=== PATIENT | female | born 1935 | race Caucasian/White ===

== ENCOUNTER 2017-06-18 17:44 | Emergency (ER) | payer MEDICARE, OTHER, SELFPAY ==
[2017-06-18 17:45] VITALS: BP 181/78; PULSE 86; RESP 18; TEMP 36.8; O2SAT 95; BMI 36.3
--- NOTE | 2017-06-18 18:27 | EKG12_ITS ---
Test Reason : PALPITATIONS Blood Pressure : / mmHG Vent. Rate : 087 BPM Atrial Rate : 087 BPM P-R Int : 172 ms QRS Dur : 078 ms QT Int : 384 ms P-R-T Axes : 059 003 059 degrees QTc Int : 462 ms Normal sinus rhythm Nonspecific ST and T wave abnormality Abnormal ECG Confirmed by VAN MARTINEZ, JOSE ([id number]), editor in chief newspaper ARMAND MALDONADO ([id number]) on 06/20/2017 2:23:10 PM Referred By: Confirmed By:JOSE ARAUJO MD
--- NOTE | 2017-06-18 18:33 | ED.DCSUM_ITS ---
- ER Visit Summary Date of Service: 06/18/17 Chief Complaint: Elevated blood pressure History of Present Illness: The patient is a 82 F presenting from urgent care with elevated blood pressure. Patient states that she has felt generalized weakness and fatigue. She also complains of anxiety. She states she has guests coming this weekend and she has had excessive worrying. She complains of depression with no suicidal ideation. States her blood pressure medicines were changed a few months ago by Dr. Casas. She has since switched to Dr. Webster. She states that the urgent care was unsure if she was in A. fib. She has a history of paroxysmal A. fib. Denies chest pain or shortness of breath. Denies headache. Physical Examination: Blood pressure 181/78. Patient is afebrile. Alert no acute distress. HEENT exam is unremarkable. Neck is supple. Lungs are clear and equal bilaterally. Heart is regular rate and rhythm. Abdomen is soft nontender nondistended. Extremities are unremarkable. Skin is warm and dry. No focal neurologic deficit. Remainder of exam is unremarkable. Emergency Department Course and Treatment: EKG is sinus rhythm rate of 87. Chest x-ray shows no acute process. CBC, chemistries unremarkable. INR is 2.1. Troponin is negative. Urinalysis positive for 5-10 white cells, positive leukocytes. Urine culture was sent. TSH is 3.52. She was given Keflex and a prescription for Keflex. Her blood pressure is 141/88 on reevaluation. She is feeling improved. She is advised to follow-up with her primary care physician for blood pressure recheck. She is advised to return to ED if she has worsening complaints. Disposition: Discharge home Impression: UTI, anxiety This note was generated with [employer] dictation software. It may contain incorrect words, spelling, and punctuation that were not noted in review of the chart prior to signing ED Disposition - Plan for ED Patient: Chief Complaint: Hypertension Referrals: Rafael Casas MD [NON-STAFF] -
--- NOTE | 2017-06-18 18:35 | RAD_ITS ---
STUDY: X-RAY CHEST REASON FOR EXAM: Female, 82 years old. Hypertension. TECHNIQUE: Single AP portable upright view of the chest. COMPARISON: PA and lateral chest x-ray May 05, 2016. FINDINGS: The lungs are clear, although not as deeply expanded today. There is no demonstrated pleural abnormality. Normal size heart. Normal mediastinum and augusto. Normal visualized pulmonary arteries. There is stable atherosclerotic calcification of the aortic arch. There are stable multilevel degenerative changes of the visualized thoracic spine. Prior fixation of a proximal right humeral fracture with a lateral metal sideplate and screws again noted. 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 There is no demonstrated abnormality of the visualized soft tissue structures of the upper abdomen. RAD/Chest 1 View (Portable) IMPRESSION: No acute cardiopulmonary disease. Electronically Signed: Moose Michaels MD at 18:56 EST , Service support ,
[2017-06-18 18:45] VITALS: O2SAT 96
[2017-06-18 18:45] LABS: Absolute Lymphocyte Count 1.49 X10^3/ul (0.83-4.51); Absolute Neutrophil Count 6.6 X10^3/uL (2.0-7.7); Basophil# 0.01 X10^3/uL; Basophil% 0.1 % (0-1); Eosinophil# 0.34 X10^3/uL; Eosinophils% 3.7 % (0-5); Hematocrit 39.2 % (37-47); Hemoglobin 12.3 g/dl (12.0-15.0); Lymphocyte # 1.49 X10^3/ul (4.0); Lymphocyte % 16.3 % (19-41); Mean Corp Hgb Conc 31.4 g/gl (32-36); Mean Corpuscular Volume 89.3 fL (81-99); Mean Platelet Vol. 9.7 fl (6.2-12.0); Monocyte# 0.66 X10^3/uL; Monocyte% 7.2 % (0-10); Neutrophil # 6.63 X10^3/uL (2.7-7.7); Neutrophil % 72.5 % (47-70); Platelet Count 203 K/mm3 (150-450); RBC Distribution Width CV 14.3 % (11.6-14.6); RBC Distribution Width SD 46.7 fl (35.1-43.9); Red Blood Count 4.39 M/mm3 (4.2-5.4); White Blood Count 9.2 K/mm3 (4.4-11.0)
[2017-06-18 18:47] LABS: POSITIVE COUNT NO; POSITIVE DIFFERENTIAL NO; POSITIVE MORPHOLOGY NO
[2017-06-18 18:51] VITALS: BP 154/83; PULSE 85; RESP 18; O2SAT 96
[2017-06-18 18:54] LABS: International Normalized Ratio 2.1; Prothrombin Time (Protime)PT. 22.4 SECONDS (11.7-14.9)
[2017-06-18 19:12] LABS: Anion Gap 7 (5-15); BUN 17 mg/dL (7-18); BUN/Creat Ratio 18.5 RATIO (10-20); Chloride 106 mmol/L (98-107); Creatinine, Serum 0.92 mg/dL (0.55-1.02); EST Glomerular Filtration Rate 62 mL/min (>60); Est Glom Filt Rate - Afr Amer 75 mL/min (>60); Estimated Creatinine Clearance 43.15 ml/min; Glucose 107 mg/dL (74-106); Potassium 4.1 mmol/L (3.5-5.1); Sodium Level 141 mmol/L (136-145); Thyroid Stim Hormone (TSH) 3.52 uIU/mL (0.358-3.74)
[2017-06-18 20:05] LABS: Bacteria 0 SEEN /hpf (None Seen); Mucous, Urine 0 SEEN /hpf (<or=2+)
[2017-06-18 20:14] LABS: Color, Urine Yellow (Yellow); Glucose, Dipstick Normal (Normal); Ketone-Dipstick Negative (Negative); Leukocyte Esterase-Dipstick 100 /ul (Negative); Nitrite-Dipstick Negative (Negative); Occult Blood-Urine 10 /ul (Negative); Protein-Dipstick 15 mg/dl (Negative); Specific Gravity, Urine 1.025 (1.002-1.030); Urine Bilirubin Dipstick Negative (Negative); Urine Clarity Sl. Cloudy (Clear); Urine Urobilinogen Normal (Normal)
[2017-06-18 20:35] LABS: Red Blood Cells-Urine 0-5 SEEN /hpf (0-5); Squamous Epithelial Cells - UA 0-5 SEEN /hpf (5-10); White Blood Cells 5-10 SEEN /hpf (0-5)
[2017-06-18 20:51] VITALS: BP 160/72; PULSE 89; RESP 18; O2SAT 96
--- NOTE | 2017-06-18 21:34 | ED.DEP ---
ED Disposition - Plan for ED Patient: Chief Complaint: Hypertension Instructions: ED HTN Established, ED UTI Cystitis Female Prescriptions: Cephalexin [Keflex] 500 mg PO Q6 #40 capsule Referrals: Rafael Casas MD [NON-STAFF] - Pasha Webster MD [Primary Care Provider] -
[2017-06-18 21:46] VITALS: BP 144/82; PULSE 100; RESP 18; O2SAT 99
== END 2017-06-18 21:49 | disposition home or self-care (01) ==
LOC: ED 18:56
PROVIDERS: Emergency Provider Emergency Medicine; Family Provider Family Medicine; PCP Family Medicine
DX: N39.0 Urinary tract infection, site not specified (principal); F41.9 Anxiety disorder, unspecified; I10 Essential (primary) hypertension; I48.0 Paroxysmal atrial fibrillation; J45.909 Unspecified asthma, uncomplicated; R19.7 Diarrhea, unspecified; F32.9 Major depressive disorder, single episode, unspecified; Z79.01 Long term (current) use of anticoagulants; Z79.899 Other long term (current) drug therapy
CPT/HCPCS: 71045; 80048; 81001; 84443; 84484; 85025; 85610; 87086; 87088; 93005; 99284; A4216

== ENCOUNTER 2017-12-20 16:01 | Emergency (ER) | payer MEDICARE, OTHER, SELFPAY ==
[2017-12-20 16:02] VITALS: BP 167/75; PULSE 70; RESP 18; TEMP 37.1; O2SAT 92; BMI 36.1
--- NOTE | 2017-12-20 16:17 | ED.VISSUMM ---
- ER Visit Summary Date of Service: 12/20/17 Chief Complaint: Weakness History of Present Illness: The patient is a 82 F with generalized weakness and feeling tired today. She states she has a nervous feeling in her stomach. She is currently on her second round of antibiotics for right leg wound. She has been having diarrhea. No fever or chills. Past history significant for paroxysmal A. fib. She is on Tikosyn and Coumadin for this. Physical Examination: Blood pressure is 167/75, temp 98.7, heart rate 70, respiratory rate 18, pulse ox 92% on room air. Patient sitting upright in bed. She is in no acute distress and speaking full sentences. Heart is regular rate and rhythm. Lung sounds are clear. Abdomen is soft with no tenderness on exam. Active bowel sounds are noted throughout. Extremity examination significant for right lower leg which has 2 wounds of the anterior right lincoln. One measures 3 cm round and the other measures 1 x 2 cm. Edges are clean with good granulation tissue. Test Results: Initial EKG reveals sinus rhythm that switched into a junctional rhythm. Heart rate was 58. There is no sign of acute ST change. Repeat EKG approximately 45 minutes later revealed sinus rhythm at 62. CBC was normal white count. Hemoglobin is 11.7. Chemistry studies unremarkable. INR is 1.9. UA is normal. Troponin negative. Emergency Department Course and Treatment: Patient received gentle IV fluids here. On repeat evaluation heart rate is in the 80s. She still describes feeling a nervous feeling in her stomach, but denies pain. I did discuss her case with Dr. Chapito Daley, her frame assembler. Patient is to stay on her current medications and call the office on Friday for follow-up. Treatment Plan: [] Disposition: Discharge Impression: Generalized malaise This note was generated with [employer] dictation software. It may contain incorrect words, spelling, and punctuation that were not noted in review of the chart prior to signing ED Disposition - Plan for ED Patient: Chief Complaint: Weakness Referrals: Pasha Webster MD [Primary Care Provider] -
--- NOTE | 2017-12-20 16:20 | RAD_ITS ---
STUDY: X-RAY CHEST REASON FOR EXAM: Female, 82 years old. Atrial fibrillation, hypertension, asthma TECHNIQUE: Single frontal view COMPARISON: June 18, 2017 FINDINGS: The lungs are clear and expanded. There is no demonstrated pleural abnormality. Borderline size heart. Normal mediastinum and augusto. Normal visualized pulmonary arteries. Calcified aortic arch and descending thoracic aorta. Mild degenerative changes of the thoracic spine. Status post ORIF of the right humerus. There is no demonstrated abnormality of the visualized soft tissue structures of the upper abdomen. RAD/Chest 1 View (Portable) IMPRESSION: Oral and cardiac shadow. Electronically Signed: Timoteo Montemayor DO at 16:48 EDT Tel [phone], Service support ,
[2017-12-20] MEDS: 0.9% Normal Saline 1,000 ML 150 ML IV (16:39)
[2017-12-20 16:40] LABS: Absolute Lymphocyte Count 1.59 X10^3/ul (0.83-4.51); Absolute Neutrophil Count 6.7 X10^3/uL (2.0-7.7); Basophil# 0.03 X10^3/uL; Basophil% 0.3 % (0-1); Eosinophils% 8.1 % (0-5); Hematocrit 37.2 % (37-47); Hemoglobin 11.7 g/dl (12.0-15.0); Lymphocyte # 1.59 X10^3/ul (4.0); Lymphocyte % 16.1 % (19-41); Mean Corp Hgb Conc 31.5 g/gl (32-36); Mean Corpuscular Hgb 27.6 pg (27.0-32.0); Mean Corpuscular Volume 87.7 fL (81-99); Mean Platelet Vol. 9.5 fl (6.2-12.0); Monocyte% 8.1 % (0-10); Neutrophil # 6.67 X10^3/uL (2.7-7.7); Neutrophil % 67.3 % (47-70); POSITIVE COUNT NO; POSITIVE DIFFERENTIAL NO; POSITIVE MORPHOLOGY NO; Platelet Count 217 K/mm3 (150-450); RBC Distribution Width CV 15.1 % (11.6-14.6); Red Blood Count 4.24 M/mm3 (4.2-5.4); White Blood Count 9.9 K/mm3 (4.4-11.0)
[2017-12-20 16:46] LABS: Bacteria 0 SEEN /hpf (None Seen); Mucous, Urine 0 SEEN /hpf (<or=2+)
[2017-12-20 16:58] LABS: Color, Urine Yellow (Yellow); Glucose, Dipstick Normal (Normal); Ketone-Dipstick Negative (Negative); Leukocyte Esterase-Dipstick 25 /ul (Negative); Nitrite-Dipstick Negative (Negative); Occult Blood-Urine 10 /ul (Negative); Protein-Dipstick 15 mg/dl (Negative); Specific Gravity, Urine 1.015 (1.002-1.030); Urine Bilirubin Dipstick Negative (Negative); Urine Clarity Sl. Cloudy (Clear); Urine Urobilinogen Normal (Normal)
[2017-12-20 17:04] LABS: International Normalized Ratio 1.9; Prothrombin Time (Protime)PT. 22.2 SECONDS (11.7-14.9)
[2017-12-20 17:07] LABS: Squamous Epithelial Cells - UA 0-5 SEEN /hpf (5-10)
[2017-12-20 17:09] LABS: White Blood Cells 0-5 SEEN /hpf (0-5)
[2017-12-20 17:10] LABS: Red Blood Cells-Urine 0-5 SEEN /hpf (0-5)
[2017-12-20 17:18] LABS: Anion Gap 6 (5-15); BUN 20 mg/dL (7-18); BUN/Creat Ratio 17.9 RATIO (10-20); Chloride 104 mmol/L (98-107); Creatinine, Serum 1.12 mg/dL (0.55-1.02); EST Glomerular Filtration Rate 50 mL/min (>60); Est Glom Filt Rate - Afr Amer 60 mL/min (>60); Estimated Creatinine Clearance 35.45 ml/min; Glucose 115 mg/dL (74-106); Potassium 4.5 mmol/L (3.5-5.1); Sodium Level 139 mmol/L (136-145)
--- NOTE | 2017-12-20 18:09 | ED.DEP ---
ED Disposition - Plan for ED Patient: Disposition: Home or Assisted Living Chief Complaint: Weakness Instructions: ED Weakness [facility] Referrals: Chapito Daley MD [STAFF PHYSICIAN] - 3-5 Days
[2017-12-20 18:22] VITALS: BP 158/67; PULSE 75; RESP 15; O2SAT 96
== END 2017-12-20 18:23 | disposition home or self-care (01) ==
PROVIDERS: Emergency Provider Emergency Medicine; Family Provider Family Medicine; PCP Family Medicine
DX: R53.81 Other malaise (principal); R19.7 Diarrhea, unspecified; I48.0 Paroxysmal atrial fibrillation; I10 Essential (primary) hypertension; J45.909 Unspecified asthma, uncomplicated; S81.801A Unspecified open wound, right lower leg, initial encounter; X58.XXXA Exposure to other specified factors, initial encounter; Y93.9 Activity, unspecified; Y92.9 Unspecified place or not applicable; Y99.9 Unspecified external cause status; Z79.899 Other long term (current) drug therapy; Z79.01 Long term (current) use of anticoagulants
CPT/HCPCS: 71045; 80048; 81001; 84484; 85025; 85610; 93005; 96360; 96361; 99285; J7030; A4216

== ENCOUNTER 2018-01-02 14:00 | Outpatient (RCR) | payer MEDICARE, OTHER, SELFPAY ==
[2017-12-12 13:51] VITALS: BP 168/73; PULSE 71; RESP 18; TEMP 35.5; BMI 36.1
--- NOTE | 2017-12-12 17:31 | PCM.WC.HP ---
(1) Traumatic open wound of right lower leg with delayed healing Status: Chronic Current Visit: Yes Code(s): S81.801D - Unspecified open wound, right lower leg, subsequent encounter (2) Cellulitis and abscess of right leg Status: Chronic Current Visit: Yes Code(s): L03.115 - Cellulitis of right lower limb; L02.415 - Cutaneous abscess of right lower limb (3) Paroxysmal a-fib Status: Chronic Current Visit: Yes Code(s): I48.0 - Paroxysmal atrial fibrillation Comment: Anticoagulated with Coumadin Antiarrhythmic therapy with dofetilide (4) Obesity Status: Chronic Current Visit: Yes Qualifiers: Obesity type: due to excess calories Code(s): E66.9 - Obesity, unspecified (5) Benign essential HTN Status: Chronic Current Visit: Yes Code(s): I10 - Essential (primary) hypertension History of Present Illness Date of Service: 12/12/17 Chief Complaint: Nonhealing wounds right lower leg History of Wound: Susanna is a very pleasant 82 yo female who has been referred to the wound center for treatment of nonhealing wounds to her right lower leg by Dr. Webster. Susanna reports that she struck her right leg on the running board of a truck while she was trying to get into the truck on November 27, 2017. She has been using gauze to dress the wounds. She notes that a few days after the injury she had increased swelling and erythema of her right leg and increased pain. She saw her PCP who started her on Keflex and recommended that she be seen here. She is on chronic anticoagulation with coumadin for A. Fib and her INR was therapeutic at the time of her injury. She has not had any vascular testing and no cultures were obtained. She does not typically have significant edema in her lower legs. 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) Cellulitis and abscess of right leg (Chronic) Paroxysmal a-fib (Chronic) Anticoagulated with Coumadin Antiarrhythmic therapy with dofetilide Obesity (Chronic) Depression (Chronic) Benign essential HTN (Chronic) Asthma (Chronic) Mild intermittent Surgical History: - - Cholecystectomy Allergies/Adverse Reactions: Allergies aspirin Allergy (Verified 06/18/17 17:48) Unknown NSAIDS (Non-Steroidal Anti-Inflamma Allergy (Verified 06/18/17 17:48) Unknown Home Medications: Ambulatory Orders Medication Instructions Recorded Dofetilide [Tikosyn] 375 mcg PO Q12 04/22/14 Atorvastatin Calcium [Lipitor] 20 mg PO QHS 09/11/14 Albuterol Inhaler [Ventolin Hfa] 1 - 2 puff INHALATION Q4H PRN PRN 09/16/14 #1 inhaler Fluticasone/Salmeterol [Advair 1 puff INHALATION BID #1 inhaler 09/16/14 250/50 Mcg Diskus] Sertraline HCl [Zoloft] 100 mg PO DAILY 03/10/16 Warfarin [Coumadin ([facility])] 4 mg PO QODAY 04/15/16 Warfarin Sodium [Warfarin Sodium] 3 mg PO QODAY 05/05/16 Albuterol Aerosols [Ventolin 2.5 mg INHALATION Q4HWA.RT PRN 06/18/17 Aerosols] Cephalexin [Keflex] 500 mg PO Q6 #40 capsule 06/18/17 - Family History Maternal No pertinent history Lives: Spouse/ Significant Other Smoking Status: Never smoker Tobacco Use: Non-smoker Alcohol: None Drugs: None Review of Systems Constitutional: Denies: Chills, Fever, Weight Change Eyes: Denies: Pain, Vision Change HEENT: Denies: Difficulty Hearing, Difficulty Swallowing, Sinus Congestion Cardiovascular: Denies: Chest Pain, Palpitations Respiratory: Denies: Cough, Shortness of Breath Gastrointestinal: Denies: Diarrhea, Nausea, Vomiting Genitourinary: Denies: Dysuria, Hematuria Skin: Reports: Wounds Endocrine: Denies: Heat/ Cold Intolerance, Polydipsia, Polyuria Hematologic/ Lymphatic: Reports: Easy Bruising, Easy Bleeding - Physical Exam Vital Signs Temp Pulse Resp BP 95.9 F L 71 18 168/73 H 12/12/17 13:51 12/12/17 13:51 12/12/17 13:51 12/12/17 13:51 General: Alert, Oriented x3, Cooperative, No apparent distress HEENT: Atraumatic, Normocephalic Oral: Moist Mucosa Lungs: Clear to auscultation Cardiovascular: Regular rate, Regular Rhythm Abdomen: Soft, Non Tender, Obese Extremities: Diminished Peripheral Pulses, Edema Skin: Ulcer/ Wound Wound Measurements and Assessment WC - Nurse 1 - General Ulcer Measurement Start: 12/12/17 13:36 Freq: Status: Active Protocol: Activity Type Activity Date Activity User E-Sign Co-Sign Detail Recorded Client Recorded Date Recorded By Document 12/12/17 13:51 [id number] 12/12/17 14:27 12/12/17 13:51 Wound Center Nurse 1 [Ulcer Assessment] #2 RIGHT INFERIOR LIN[place] -Combined with other wound No -Current Size (cm) - Length 2.1 -Current Size (cm) - Width 1.2 -Current Size (cm) - Depth 0.1 -Total Square Cm 2.52 -Date of Last Picture (Recall this 12/12/17 field) -Photo Taken Yes -Epithelialization None Present -Tunneling No -Undermining/Tunneling No -Circular Undermining No -Exudate Amt Small (1-33%) -Exudate Type Serosanguineous -Wound Margin Thickened -Granulation Amt None Present (0 %) -Slough/Fibrin Yes -Necrosis Amt Medium (34-66%) -Necrotic Tissue Type Adherent Slough -Structure Exposed None/Limited to Skin Breakdown -Texture (Evelyne-wound Skin Appearance) No Abnormality Assessed -Moisture (Evelyne-wound Skin Appearance No Abnormality ) Assessed -Color (Evelyne-wound Skin Appearance) Erythema -Temperature (Evelyne-wound Skin No Abnormality Appearance) (Pt Warm) -Tenderness on Palpation (Evelyne-wound Yes Skin Appearance) -Ulcer Cleansing Rinsed/ Irrigated with Saline -Foul Odor after Cleansing No -Anesthetic Used 4% Lidocaine Solution #1 RIGHT SUPERIOR LINCOLN CLUSTER -Combined with other wound No -Current Size (cm) - Length 3.2 -Current Size (cm) - Width 6.7 -Current Size (cm) - Depth 0.1 -Total Square Cm 21.44 -Date of Last Picture (Recall this 12/12/17 field) -Photo Taken Yes -Epithelialization None Present -Tunneling No -Undermining/Tunneling No -Circular Undermining No -Exudate Amt Small (1-33%) -Exudate Type Serosanguineous -Wound Margin Thickened -Granulation Amt None Present (0 %) -Necrosis Amt Medium (34-66%) -Necrotic Tissue Type Adherent Slough -Structure Exposed None/Limited to Skin Breakdown -Texture (Evelyne-wound Skin Appearance) No Abnormality Assessed -Moisture (Evelyne-wound Skin Appearance No Abnormality ) Assessed -Color (Evelyne-wound Skin Appearance) Erythema -Temperature (Evelyne-wound Skin Hot Appearance) -Tenderness on Palpation (Evelyne-wound Yes Skin Appearance) -Ulcer Cleansing Rinsed/ Irrigated with Saline -Foul Odor after Cleansing No -Anesthetic Used 4% Lidocaine Solution [Edema Assessment] -Lower Limb Edema Present Yes -Right Calf (cm) 33.3 -Right Ankle (cm) 25.3 -Left Calf (cm) 34.6 -Left Ankle (cm) 22.0 DEIDRE - Nurse 2 - General Ulcer CM Notes Start: 12/12/17 13:36 Freq: Status: Active Protocol: Activity Type Activity Date Activity User E-Sign Co-Sign Detail Recorded Client Recorded Date Recorded By Document 12/12/17 15:48 [id number] 12/12/17 16:00 12/12/17 15:48 Wound Center Nurse 2 [Procedure/Treatment] #2 RIGHT INFERIOR LINCOLN -Time 15:49 -Correct Patient Yes -Correct Side, Site, Position Yes -Correct Procedure Yes -Procedure Performed Yes -Type of Procedure Debridement -Clinical Debridement Subcutaneous -Post Debridement Size (cm) - Length 1.9 -Post Debridement Size (cm) - Width 1.0 -Post Debridement Size (cm) - Depth 0.1 -Total Square Cm 1.90 -Wound/Ulcer Outcome Not Healed -Ulcer Cleansing Rinsed/ Irrigated with Saline -Foul Odor after Cleansing No -Bioengineered Tissue No -Topical Lidocaine (%) 5 -Bleeding Controlled with Pressure -Treatment Response Procedure Tolerated Well #1 RIGHT SUPERIOR LIN[place]N CLUSTER -Time 15:49 -Correct Patient Yes -Correct Side, Site, Position Yes -Correct Procedure Yes -Procedure Performed Yes -Type of Procedure Debridement -Clinical Debridement Subcutaneous -Post Debridement Size (cm) - Length 3.5 -Post Debridement Size (cm) - Width 6.5 -Post Debridement Size (cm) - Depth 0.1 -Total Square Cm 22.75 -Wound/Ulcer Outcome Not Healed -Ulcer Cleansing Rinsed/ Irrigated with Saline -Foul Odor after Cleansing No -Bioengineered Tissue No -Topical Lidocaine (%) 5 -Bleeding Controlled with Pressure -Treatment Response Procedure Tolerated Well [See Physician Procedure note for Specifics] Pain Scale: 0-10 Numeric [Pain] -Is Patient Pain Free? Yes Psych/Mental Status: Normal Affect, Appropriate Debridement Note Post-Debridement Measurements/Treatment DEIDRE - Nurse 2 - General Ulcer CM Notes Start: 12/12/17 13:36 Freq: Status: Active Protocol: Activity Type Activity Date Activity User E-Sign Co-Sign Detail Recorded Client Recorded Date Recorded By Document 12/12/17 15:48 [id number] 12/12/17 16:00 12/12/17 15:48 Wound Center Nurse 2 #2 RIGHT INFERIOR LINCOLN -Time 15:49 -Correct Patient Yes -Correct Side, Site, Position Yes -Correct Procedure Yes -Procedure Performed Yes -Type of Procedure Debridement -Clinical Debridement Subcutaneous -Post Debridement Size (cm) - Length 1.9 -Post Debridement Size (cm) - Width 1.0 -Post Debridement Size (cm) - Depth 0.1 -Total Square Cm 1.90 -Wound/Ulcer Outcome Not Healed -Ulcer Cleansing Rinsed/ Irrigated with Saline -Foul Odor after Cleansing No -Bioengineered Tissue No -Topical Lidocaine (%) 5 -Bleeding Controlled with Pressure -Treatment Response Procedure Tolerated Well #1 RIGHT SUPERIOR LINCOLN CLUSTER -Time 15:49 -Correct Patient Yes -Correct Side, Site, Position Yes -Correct Procedure Yes -Procedure Performed Yes -Type of Procedure Debridement -Clinical Debridement Subcutaneous -Post Debridement Size (cm) - Length 3.5 -Post Debridement Size (cm) - Width 6.5 -Post Debridement Size (cm) - Depth 0.1 -Total Square Cm 22.75 -Wound/Ulcer Outcome Not Healed -Ulcer Cleansing Rinsed/ Irrigated with Saline -Foul Odor after Cleansing No -Bioengineered Tissue No -Topical Lidocaine (%) 5 -Bleeding Controlled with Pressure -Treatment Response Procedure Tolerated Well Pain Scale: 0-10 Numeric Is Patient Pain Free? Yes Wound debrided: right inferior lincoln Laterality: Right Type of Debridement: Excisional debridement Anesthesia Used: 4% Lidocaine Solution, 5% Lidocaine Gel Depth: Down to and including healthy tissue, in the subcutaneous layer Percentage of wound debrided: 100 Instrument Used: #15 blade, Forceps Tissue Removed: yellow slough, devitalized tissue Severity: Fat Layer Exposed Amount of bleeding with debridement: Mild Bleeding Controlled with: Compression and gauze Patient tolerated procedure well - Additional Wound Wound debrided: right superior lincoln cluster Laterality: Right Type of Debridement: Excisional debridement Anesthesia Used: 4% Lidocaine Solution, 5% Lidocaine Gel Depth: Down to and including healthy tissue, in the subcutaneous layer Percentage of wound debrided: 100 Instrument Used: #15 blade, Forceps Tissue Removed: yellow slough, devitalized tissue Severity: Fat Layer Exposed Amount of bleeding with debridement: Mild Bleeding Controlled with: Compression and gauze Patient tolerated procedure: Patient tolerated procedure well Assessment/Plan Active Problems 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 Wound cultures were taken. She will continue Keflex until completed and will adjust antibiotics based on culture results. Venous studies were ordered. I do not feel arterial studies are necessary at this time. Will order if there is impaired healing. Will treat her edema with tubigrip compression in a single layer. Will dress her wounds with Silvercell. Encouraged increased protein intake and elevation of her legs when sitting. F/U in 1 week.
--- NOTE | 2017-12-19 10:30 | VDLE_ITS ---
Reason For Study: PAIN, EDEMA RIGHT LEFT CFV is compressible, spontaneous, phasic, CFV is compressible, spontaneous, phasic, competent and demonstrates normal competent, and demonstrates normal augmentation. augmentation. FV is compressible, spontaneous, phasic, FV is compressible, spontaneous, phasic, competent and demonstrates normal competent and demonstrates normal augmentation. augmentation. POP V is compressible, spontaneous, phasic, POP V is compressible, spontaneous, phasic, competent and demonstrates normal competent and demonstrates normal augmentation. augmentation. T/P Trunk is compressible. T/P Trunk is compressible. PTV is compressible. PTV is compressible. RT PerV is compressible. LT PerV is compressible. RT GSV is compressible. Left GSV at SFJ is compressible and RT GSV at SFJ is INCOMPETENT for greater competent. than .5 seconds. Left GSV is competent throughout. The remainder of the GSV is competent. Left SSV is competent. RT SSV is compressible and competent. GSV and SSV noe are thickened. GSV and SSV noe are thickened. Procedure Exam performed in department. A preliminary report was called and/or faxed to [facility]. Interpretation Summary Deep veins of the lower extremities are bilaterally patent and compressible segmentally. There is no evidence of deep vein thrombosis on either side. Valvular competence appears intact within the proximal deep venous systems bilaterally. The greater saphenous veins appear bilaterally patent and compressible segmentally. The right sapheno-femoral junction is incompetent . The left sapheno- femoral junction is competent . Valvular competence appears to be intact segmentally within the greater saphenous veins bilaterally. Small saphenous veins are patent and competent bilaterally. The greater saphenous veins and small saphenous veins demonstrate chronic vein wall thickening bilaterally. Ordering Physician: Amna Ignacio Referring Physician: KATHY BEARD Performed By: Zena Blue, LUCRECIA, RVT
[2017-12-19 13:11] VITALS: BP 136/61; PULSE 69; RESP 18; TEMP 36.9; BMI 36.1
--- NOTE | 2017-12-19 17:00 | PN.PCM_ITS ---
(1) Traumatic open wound of right lower leg with delayed healing Status: Chronic Current Visit: Yes Code(s): S81.801D - Unspecified open wound, right lower leg, subsequent encounter (2) Cellulitis and abscess of right leg Status: Chronic Current Visit: Yes Code(s): L03.115 - Cellulitis of right lower limb; L02.415 - Cutaneous abscess of right lower limb (3) Paroxysmal a-fib Status: Chronic Current Visit: Yes Code(s): I48.0 - Paroxysmal atrial fibrillation Comment: Anticoagulated with Coumadin Antiarrhythmic therapy with dofetilide (4) Obesity Status: Chronic Current Visit: Yes Qualifiers: Obesity type: due to excess calories Code(s): E66.9 - Obesity, unspecified (5) Benign essential HTN Status: Chronic Current Visit: Yes Code(s): I10 - Essential (primary) hypertension Type of Wound Date of Service: 12/19/17 Chief Complaint: Nonhealing wounds right lower leg History of Wound: Susanna is a very pleasant 82 yo female who has been referred to the wound center for treatment of nonhealing wounds to her right lower leg by Dr. Webster. Susanna reports that she struck her right leg on the running board of a truck while she was trying to get into the truck on November 27, 2017. She has been using gauze to dress the wounds. She notes that a few days after the injury she had increased swelling and erythema of her right leg and increased pain. She saw her PCP who started her on Keflex and recommended that she be seen here. She is on chronic anticoagulation with coumadin for A. Fib and her INR was therapeutic at the time of her injury. She has not had any vascular testing and no cultures were obtained. She does not typically have significant edema in her lower legs. Progress of Wound: Susanna presents for follow up of nonhealing traumatic wounds to her right lower leg. She tolerated dressings with Aquacel but was unable to tolerate compression because it hurt her legs too much. She still feels quite a bit of pain in her wounds. She started on clindamycin for positive wound cultures and is tolerating the medication fairly well with just an off taste in her mouth. - Physical Exam Vital Signs Temp Pulse Resp BP 98.4 F 69 18 136/61 H 12/19/17 13:11 12/19/17 13:11 12/19/17 13:11 12/19/17 13:11 General: Alert, Oriented x3, Cooperative, No apparent distress HEENT: Atraumatic, Normocephalic Oral: Moist Mucosa Abdomen: Obese Extremities: Edema Skin: Ulcer/ Wound Wound Measurements and Assessment WC - Nurse 1 - General Ulcer Measurement Start: 12/12/17 13:36 Freq: Status: Active Protocol: Activity Type Activity Date Activity User E-Sign Co-Sign Detail Recorded Client Recorded Date Recorded By Document 12/19/17 13:11 [id number] 12/19/17 13:15 12/19/17 13:11 Wound Center Nurse 1 [Ulcer Assessment] #2 RIGHT INFERIOR LINCOLN -Combined with other wound No -Current Size (cm) - Length 1.7 -Current Size (cm) - Width 0.9 -Current Size (cm) - Depth 0.1 -Total Square Cm 1.53 -Photo Taken No -Epithelialization None Present -Tunneling No -Undermining/Tunneling No -Circular Undermining No -Exudate Amt Medium (34-66%) -Exudate Type Serosanguineous -Wound Margin Distinct, Outline Attached -Granulation Amt Medium (34-66%) -Granulation Quality [place] Red -Slough/Fibrin Yes -Necrosis Amt None Present (0 %) -Necrotic Tissue Type Adherent Slough -Structure Exposed None/Limited to Skin Breakdown -Texture (Evelyne-wound Skin Appearance) No Abnormality Assessed -Moisture (Evelyne-wound Skin Appearance No Abnormality ) Assessed -Color (Evelyne-wound Skin Appearance) No Abnormality Assessed -Temperature (Evelyne-wound Skin No Abnormality Appearance) (Pt Warm) -Tenderness on Palpation (Evelyne-wound Yes Skin Appearance) -Ulcer Cleansing Rinsed/ Irrigated with Saline -Foul Odor after Cleansing No -Anesthetic Used 5% Lidocaine Gel #1 RIGHT SUPERIOR LINCOLN CLUSTER -Combined with other wound No -Current Size (cm) - Length 2.7 -Current Size (cm) - Width 1.9 -Current Size (cm) - Depth 0.1 -Total Square Cm 5.13 -Photo Taken No -Epithelialization None Present -Tunneling No -Undermining/Tunneling No -Circular Undermining No -Exudate Amt Medium (34-66%) -Exudate Type Serosanguineous -Wound Margin Distinct, Outline Attached -Granulation Amt Medium (34-66%) -Granulation Quality [place] Red -Slough/Fibrin Yes -Necrosis Amt None Present (0 %) -Necrotic Tissue Type Adherent Slough -Structure Exposed None/Limited to Skin Breakdown -Texture (Evelyne-wound Skin Appearance) No Abnormality Assessed -Color (Evelyne-wound Skin Appearance) No Abnormality Assessed -Temperature (Evelyne-wound Skin No Abnormality Appearance) (Pt Warm) -Tenderness on Palpation (Evelyne-wound Yes Skin Appearance) -Ulcer Cleansing Rinsed/ Irrigated with Saline -Foul Odor after Cleansing No -Anesthetic Used 4% Lidocaine Solution [Edema Assessment] -Lower Limb Edema Present No -Left Calf (cm) 34.2 -Left Ankle (cm) 23.5 WC - Nurse 2 - General Ulcer CM Notes Start: 12/12/17 13:36 Freq: Status: Active Protocol: Activity Type Activity Date Activity User E-Sign Co-Sign Detail Recorded Client Recorded Date Recorded By Document 12/19/17 13:37 [id number] 12/19/17 13:48 12/19/17 13:37 Wound Center Nurse 2 [Procedure/Treatment] #2 RIGHT INFERIOR LINCOLN -Time 13:46 -Correct Patient Yes -Correct Side, Site, Position Yes -Correct Procedure Yes -Procedure Performed Yes -Type of Procedure Debridement -Clinical Debridement Subcutaneous -Post Debridement Size (cm) - Length 1.8 -Post Debridement Size (cm) - Width 1.2 -Post Debridement Size (cm) - Depth 0.2 -Total Square Cm 2.16 -Wound/Ulcer Outcome Not Healed -Ulcer Cleansing Rinsed/ Irrigated with Saline -Foul Odor after Cleansing No -Bioengineered Tissue No -Topical Lidocaine (%) 4 -Bleeding Controlled with Pressure -Treatment Response Procedure Tolerated Well #1 RIGHT SUPERIOR [place] CLUSTER -Time 13:46 -Correct Patient Yes -Correct Side, Site, Position Yes -Correct Procedure Yes -Procedure Performed Yes -Type of Procedure Debridement -Clinical Debridement Subcutaneous -Post Debridement Size (cm) - Length 3.2 -Post Debridement Size (cm) - Width 2.5 -Post Debridement Size (cm) - Depth 0.1 -Total Square Cm 8.00 -Ulcer Cleansing Rinsed/ Irrigated with Saline -Foul Odor after Cleansing No -Bioengineered Tissue No -Topical Lidocaine (%) 4 -Bleeding Controlled with Pressure -Treatment Response Procedure Tolerated Well [See Physician Procedure note for Specifics] Pain Scale: 0-10 Numeric [Pain] -Is Patient Pain Free? Yes Psych/Mental Status: Normal Affect, Appropriate Debridement Note Post-Debridement Measurements/Treatment WC - Nurse 2 - General Ulcer CM Notes Start: 12/12/17 13:36 Freq: Status: Active Protocol: Activity Type Activity Date Activity User E-Sign Co-Sign Detail Recorded Client Recorded Date Recorded By Document 12/12/17 15:48 TM [id number] 12/12/17 16:00 TM Document 12/19/17 13:37 TM [id number] 12/19/17 13:48 TM 12/12/17 12/19/17 15:48 13:37 Wound Center Nurse 2 #2 RIGHT INFERIOR LINCOLN -Time 15:49 13:46 -Correct Patient Yes Yes -Correct Side, Site, Position Yes Yes -Correct Procedure Yes Yes -Procedure Performed Yes Yes -Type of Procedure Debridement Debridement -Clinical Debridement Subcutaneous Subcutaneous -Post Debridement Size (cm) - Length 1.9 1.8 -Post Debridement Size (cm) - Width 1.0 1.2 -Post Debridement Size (cm) - Depth 0.1 0.2 -Total Square Cm 1.90 2.16 -Wound/Ulcer Outcome Not Healed Not Healed -Ulcer Cleansing Rinsed/ Rinsed/ Irrigated with Irrigated with Saline Saline -Foul Odor after Cleansing No No -Bioengineered Tissue No No -Topical Lidocaine (%) 5 4 -Bleeding Controlled with Pressure Pressure -Treatment Response Procedure Procedure Tolerated Well Tolerated Well #1 RIGHT SUPERIOR [place] CLUSTER -Time 15:49 13:46 -Correct Patient Yes Yes -Correct Side, Site, Position Yes Yes -Correct Procedure Yes Yes -Procedure Performed Yes Yes -Type of Procedure Debridement Debridement -Clinical Debridement Subcutaneous Subcutaneous -Post Debridement Size (cm) - Length 3.5 3.2 -Post Debridement Size (cm) - Width 6.5 2.5 -Post Debridement Size (cm) - Depth 0.1 0.1 -Total Square Cm 22.75 8.00 -Wound/Ulcer Outcome Not Healed -Ulcer Cleansing Rinsed/ Rinsed/ Irrigated with Irrigated with Saline Saline -Foul Odor after Cleansing No No -Bioengineered Tissue No No -Topical Lidocaine (%) 5 4 -Bleeding Controlled with Pressure Pressure -Treatment Response Procedure Procedure Tolerated Well Tolerated Well Pain Scale: 0-10 Numeric Is Patient Pain Free? Yes Yes Wound debrided: right inferior lincoln Laterality: Right Type of Debridement: Excisional debridement Anesthesia Used: 5% Lidocaine Gel Depth: Down to and including healthy tissue, in the subcutaneous layer Percentage of wound debrided: 100 Instrument Used: 5mm curette Tissue Removed: yellow slough, devitalized tissue Severity: Fat Layer Exposed Amount of bleeding with debridement: Mild Bleeding Controlled with: Compression and gauze Patient tolerated procedure well - Additional Wound Wound debrided: right superior lincoln cluster Laterality: Right Type of Debridement: Excisional debridement Anesthesia Used: 5% Lidocaine Gel Depth: Down to and including healthy tissue, in the subcutaneous layer Percentage of wound debrided: 100 Instrument Used: 5mm curette Tissue Removed: yellow slough, devitalized tissue Severity: Fat Layer Exposed Amount of bleeding with debridement: Mild Bleeding Controlled with: Compression and gauze Patient tolerated procedure: Patient tolerated procedure well Assessment/Plan Active Problems 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 she is on clindamycin for positive wound cultures. Venous studies were completed and show incompetence in her GSV of her right leg. Referral made to Dr. Underwood regarding possible vascular intervention. I do not feel arterial studies are necessary at this time. Will order if there is impaired healing. Will treat her edema with tubigrip compression in a single layer but go up one size to see if it is more tolerable. Will dress her wounds with Silvercell. Encouraged increased protein intake and elevation of her legs when sitting. F/U in 1 week.
[2017-12-26 14:11] VITALS: BP 149/70; PULSE 71; RESP 18; TEMP 36.6; BMI 36.1
--- NOTE | 2017-12-26 15:15 | PCM.WC.PN ---
(1) Traumatic open wound of right lower leg with delayed healing Status: Chronic Current Visit: Yes Code(s): S81.801D - Unspecified open wound, right lower leg, subsequent encounter (2) Cellulitis and abscess of right leg Status: Chronic Current Visit: Yes Code(s): L03.115 - Cellulitis of right lower limb; L02.415 - Cutaneous abscess of right lower limb (3) Paroxysmal a-fib Status: Chronic Current Visit: Yes Code(s): I48.0 - Paroxysmal atrial fibrillation Comment: Anticoagulated with Coumadin Antiarrhythmic therapy with dofetilide (4) Obesity Status: Chronic Current Visit: Yes Qualifiers: Obesity type: due to excess calories Code(s): E66.9 - Obesity, unspecified (5) Benign essential HTN Status: Chronic Current Visit: Yes Code(s): I10 - Essential (primary) hypertension Type of Wound Date of Service: 12/26/17 Chief Complaint: Nonhealing wounds right lower leg History of Wound: Susanna is a very pleasant 82 yo female who has been referred to the wound center for treatment of nonhealing wounds to her right lower leg by Dr. Webster. Susanna reports that she struck her right leg on the running board of a truck while she was trying to get into the truck on November 27, 2017. She has been using gauze to dress the wounds. She notes that a few days after the injury she had increased swelling and erythema of her right leg and increased pain. She saw her PCP who started her on Keflex and recommended that she be seen here. She is on chronic anticoagulation with coumadin for A. Fib and her INR was therapeutic at the time of her injury. She has not had any vascular testing and no cultures were obtained. She does not typically have significant edema in her lower legs. Progress of Wound: Susanna presents for follow up of nonhealing traumatic wounds to her right lower leg. She tolerated dressings with Aquacel Ag. She tolerated larger size tubigrips for compression. She feels less pain in her wounds. She has a few days left of her antibiotic course for positive wound culture. - Physical Exam Vital Signs Temp Pulse Resp BP 97.8 F 71 18 149/70 H 12/26/17 14:11 12/26/17 14:11 12/26/17 14:11 12/26/17 14:11 General: Alert, Oriented x3, Cooperative, No apparent distress HEENT: Atraumatic, Normocephalic Oral: Moist Mucosa Abdomen: Obese Skin: Ulcer/ Wound Wound Measurements and Assessment WC - Nurse 1 - General Ulcer Measurement Start: 12/12/17 13:36 Freq: Status: Active Protocol: Activity Type Activity Date Activity User E-Sign Co-Sign Detail Recorded Client Recorded Date Recorded By Document 12/26/17 14:11 [facility] [id number] 12/26/17 14:23 [facility] 12/26/17 14:11 Wound Center Nurse 1 [Ulcer Assessment] #2 RIGHT INFERIOR [place] -Combined with other wound No -Current Size (cm) - Length 1.5 -Current Size (cm) - Width 0.9 -Current Size (cm) - Depth 0.1 -Total Square Cm 1.35 -Photo Taken No -Epithelialization None Present -Tunneling No -Undermining/Tunneling No -Circular Undermining No -Exudate Amt Small (1-33%) -Exudate Type Serosanguineous -Wound Margin Distinct, Outline Attached -Granulation Amt None Present (0 %) -Slough/Fibrin Yes -Necrosis Amt Large (67-100%) -Necrotic Tissue Type Eschar -Structure Exposed N/A -Texture (Evelyne-wound Skin Appearance) Scarring -Moisture (Evelyne-wound Skin Appearance Assessed ) -Color (Evelyne-wound Skin Appearance) Erythema -Temperature (Evelyne-wound Skin No Abnormality Appearance) (Pt Warm) -Tenderness on Palpation (Evelyne-wound Yes Skin Appearance) -Ulcer Cleansing Rinsed/ Irrigated with Saline -Foul Odor after Cleansing No -Anesthetic Used 4% Lidocaine Solution 5% Lidocaine Gel #1 RIGHT SUPERIOR [place] CLUSTER -Combined with other wound No -Current Size (cm) - Length 3.1 -Current Size (cm) - Width 1.9 -Current Size (cm) - Depth 0.1 -Total Square Cm 5.89 -Photo Taken No -Epithelialization None Present -Tunneling No -Undermining/Tunneling No -Circular Undermining No -Exudate Amt Small (1-33%) -Exudate Type Serosanguineous -Wound Margin Distinct, Outline Attached -Granulation Amt Small (1-33%) -Granulation Quality Red -Slough/Fibrin Yes -Necrosis Amt Large (67-100%) -Necrotic Tissue Type Adherent Slough -Structure Exposed N/A -Texture (Evelyne-wound Skin Appearance) Scarring -Moisture (Evelyne-wound Skin Appearance Assessed ) -Color (Evelyne-wound Skin Appearance) Erythema -Temperature (Evelyne-wound Skin No Abnormality Appearance) (Pt Warm) -Tenderness on Palpation (Evelyne-wound No Skin Appearance) -Ulcer Cleansing Rinsed/ Irrigated with Saline -Foul Odor after Cleansing No -Anesthetic Used 4% Lidocaine Solution 5% Lidocaine Gel [Edema Assessment] -Lower Limb Edema Present Yes -Left Calf (cm) 33.2 -Left Ankle (cm) 22 Psych/Mental Status: Normal Affect, Appropriate Debridement Note Post-Debridement Measurements/Treatment WC - Nurse 2 - General Ulcer CM Notes Start: 12/12/17 13:36 Freq: Status: Active Protocol: Activity Type Activity Date Activity User E-Sign Co-Sign Detail Recorded Client Recorded Date Recorded By Document 12/12/17 15:48 TM [id number] 12/12/17 16:00 TM Document 12/19/17 13:37 TM [id number] 12/19/17 13:48 TM 12/12/17 12/19/17 15:48 13:37 Wound Center Nurse 2 #2 RIGHT INFERIOR [place] -Time 15:49 13:46 -Correct Patient Yes Yes -Correct Side, Site, Position Yes Yes -Correct Procedure Yes Yes -Procedure Performed Yes Yes -Type of Procedure Debridement Debridement -Clinical Debridement Subcutaneous Subcutaneous -Post Debridement Size (cm) - Length 1.9 1.8 -Post Debridement Size (cm) - Width 1.0 1.2 -Post Debridement Size (cm) - Depth 0.1 0.2 -Total Square Cm 1.90 2.16 -Wound/Ulcer Outcome Not Healed Not Healed -Ulcer Cleansing Rinsed/ Rinsed/ Irrigated with Irrigated with Saline Saline -Foul Odor after Cleansing No No -Bioengineered Tissue No No -Topical Lidocaine (%) 5 4 -Bleeding Controlled with Pressure Pressure -Treatment Response Procedure Procedure Tolerated Well Tolerated Well #1 RIGHT SUPERIOR [place] CLUSTER -Time 15:49 13:46 -Correct Patient Yes Yes -Correct Side, Site, Position Yes Yes -Correct Procedure Yes Yes -Procedure Performed Yes Yes -Type of Procedure Debridement Debridement -Clinical Debridement Subcutaneous Subcutaneous -Post Debridement Size (cm) - Length 3.5 3.2 -Post Debridement Size (cm) - Width 6.5 2.5 -Post Debridement Size (cm) - Depth 0.1 0.1 -Total Square Cm 22.75 8.00 -Wound/Ulcer Outcome Not Healed -Ulcer Cleansing Rinsed/ Rinsed/ Irrigated with Irrigated with Saline Saline -Foul Odor after Cleansing No No -Bioengineered Tissue No No -Topical Lidocaine (%) 5 4 -Bleeding Controlled with Pressure Pressure -Treatment Response Procedure Procedure Tolerated Well Tolerated Well Pain Scale: 0-10 Numeric Is Patient Pain Free? Yes Yes Wound debrided: right inferior lincoln Laterality: Right Type of Debridement: Excisional debridement Anesthesia Used: 4% Lidocaine Solution Depth: Down to and including healthy tissue, in the subcutaneous layer Percentage of wound debrided: 100 Instrument Used: 5mm curette Tissue Removed: yellow slough, devitalized tissue Severity: Fat Layer Exposed Amount of bleeding with debridement: Mild Bleeding Controlled with: Compression and gauze Patient tolerated procedure well Assessment/Plan Active Problems 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 She will complete clindamycin for positive wound culture in 2 days. Venous studies were completed and show incompetence in her GSV of her right leg. Referral made to Dr. Underwood regarding possible vascular intervention. I do not feel arterial studies are necessary at this time. Will order if there is impaired healing. Will continue to dress her wounds with Silvercell. Encouraged increased protein intake and elevation of her legs when sitting. F/U in 1 week.
[2018-01-02 13:43] VITALS: BP 157/67; PULSE 79; RESP 20; TEMP 37.2; BMI 36.1
--- NOTE | 2018-01-02 20:55 | PCM.WC.PN ---
(1) Traumatic open wound of right lower leg with delayed healing Status: Chronic Current Visit: Yes Code(s): S81.801D - Unspecified open wound, right lower leg, subsequent encounter (2) Cellulitis and abscess of right leg Status: Chronic Current Visit: Yes Code(s): L03.115 - Cellulitis of right lower limb; L02.415 - Cutaneous abscess of right lower limb (3) Paroxysmal a-fib Status: Chronic Current Visit: Yes Code(s): I48.0 - Paroxysmal atrial fibrillation Comment: Anticoagulated with Coumadin Antiarrhythmic therapy with dofetilide (4) Obesity Status: Chronic Current Visit: Yes Qualifiers: Obesity type: due to excess calories Code(s): E66.9 - Obesity, unspecified (5) Benign essential HTN Status: Chronic Current Visit: Yes Code(s): I10 - Essential (primary) hypertension Type of Wound Date of Service: 01/02/18 Chief Complaint: Nonhealing wounds right lower leg History of Wound: Susanna is a very pleasant 82 yo female who has been referred to the wound center for treatment of nonhealing wounds to her right lower leg by Dr. Webster. Susanna reports that she struck her right leg on the running board of a truck while she was trying to get into the truck on November 27, 2017. She has been using gauze to dress the wounds. She notes that a few days after the injury she had increased swelling and erythema of her right leg and increased pain. She saw her PCP who started her on Keflex and recommended that she be seen here. She is on chronic anticoagulation with coumadin for A. Fib and her INR was therapeutic at the time of her injury. She has not had any vascular testing and no cultures were obtained. She does not typically have significant edema in her lower legs. Progress of Wound: Susanna presents for follow up of nonhealing traumatic wounds to her right lower leg. She is tolerating dressings with Aquacel Ag. She tolerated larger size tubigrips for compression. She feels less pain in her wounds. She completed antibiotics. She states taht her wounds are dry and the dressings are somewhat adherent. - Physical Exam Vital Signs Temp Pulse Resp BP 98.9 F 79 20 H 157/67 H 01/02/18 13:43 01/02/18 13:43 01/02/18 13:43 01/02/18 13:43 General: Alert, Oriented x3, Cooperative, No apparent distress HEENT: Atraumatic, Normocephalic Oral: Moist Mucosa Extremities: Edema Skin: Ulcer/ Wound Wound Measurements and Assessment WC - Nurse 1 - General Ulcer Measurement Start: 12/12/17 13:36 Freq: Status: Active Protocol: Activity Type Activity Date Activity User E-Sign Co-Sign Detail Recorded Client Recorded Date Recorded By Document 01/02/18 13:43 TN [id number] 01/02/18 13:55 TN 01/02/18 13:43 Wound Center Nurse 1 [Ulcer Assessment] #2 RIGHT INFERIOR LINCOLN -Combined with other wound No -Current Size (cm) - Length 1.5 -Current Size (cm) - Width 0.9 -Current Size (cm) - Depth 0.1 -Total Square Cm 1.35 -Photo Taken No -Epithelialization None Present -Tunneling No -Undermining/Tunneling No -Circular Undermining No -Classification - Thickness Full Thickness without Exposed Support Structure -Change in Wound Grade/Stage No Query Text:If change please identify the Stage/Grade in the comment (ie. S2 G3) -Exudate Amt Small (1-33%) -Exudate Type Serous -Wound Margin Flat & Intact -Granulation Amt None Present (0 %) -Necrosis Amt Medium (34-66%) -Necrotic Tissue Type Adherent Slough -Structure Exposed None/Limited to Skin Breakdown -Texture (Evelyne-wound Skin Appearance) Assessed Scarring -Moisture (Evelyne-wound Skin Appearance Assessed ) Dry/Scaly -Color (Evelyne-wound Skin Appearance) Assessed -Temperature (Evelyne-wound Skin No Abnormality Appearance) (Pt Warm) -Tenderness on Palpation (Evelyne-wound No Skin Appearance) -Ulcer Cleansing Rinsed/ Irrigated with Saline -Foul Odor after Cleansing No -Anesthetic Used 5% Lidocaine Gel #1 RIGHT SUPERIOR LINCOLN CLUSTER -Combined with other wound No -Current Size (cm) - Length 2.6 -Current Size (cm) - Width 2 -Current Size (cm) - Depth 0.1 -Total Square Cm 5.2 -Photo Taken No -Epithelialization None Present -Tunneling No -Undermining/Tunneling No -Circular Undermining No -Classification - Thickness Full Thickness without Exposed Support Structure -Change in Wound Grade/Stage No Query Text:If change please identify the Stage/Grade in the comment (ie. S2 G3) -Exudate Amt Small (1-33%) -Exudate Type Serous -Wound Margin Flat & Intact -Granulation Amt None Present (0 %) -Slough/Fibrin Yes -Necrosis Amt Small (1-33%) -Necrotic Tissue Type Adherent Slough -Structure Exposed None/Limited to Skin Breakdown -Texture (Evelyne-wound Skin Appearance) Assessed Scarring -Moisture (Evelyne-wound Skin Appearance Assessed ) Dry/Scaly -Color (Evelyne-wound Skin Appearance) No Abnormality Assessed -Temperature (Evelyne-wound Skin No Abnormality Appearance) (Pt Warm) -Tenderness on Palpation (Evelyne-wound No Skin Appearance) -Ulcer Cleansing Rinsed/ Irrigated with Saline -Foul Odor after Cleansing No -Anesthetic Used 5% Lidocaine Gel [Edema Assessment] -Lower Limb Edema Present No -Right Calf (cm) 34 -Right Ankle (cm) 22.5 WC - Nurse 2 - General Ulcer CM Notes Start: 12/12/17 13:36 Freq: Status: Active Protocol: Activity Type Activity Date Activity User E-Sign Co-Sign Detail Recorded Client Recorded Date Recorded By Document 01/02/18 14:10 [id number] 01/02/18 14:12 01/02/18 14:10 Wound Center Nurse 2 [Procedure/Treatment] #2 RIGHT INFERIOR LINCOLN -Time 14:11 -Correct Patient Yes -Correct Side, Site, Position Yes -Correct Procedure Yes -Procedure Performed Yes -Type of Procedure Debridement -Clinical Debridement Subcutaneous -Post Debridement Size (cm) - Length 0.9 -Post Debridement Size (cm) - Width 0.7 -Post Debridement Size (cm) - Depth 0.1 -Total Square Cm 0.63 -Wound/Ulcer Outcome Not Healed -Ulcer Cleansing Rinsed/ Irrigated with Saline -Foul Odor after Cleansing No -Bioengineered Tissue No -Topical Lidocaine (%) 5 -Bleeding Controlled with Pressure -Treatment Response Procedure Tolerated Well #1 RIGHT SUPERIOR LINCOLN CLUSTER -Time 14:11 -Correct Patient Yes -Correct Side, Site, Position Yes -Correct Procedure Yes -Procedure Performed Yes -Type of Procedure Debridement -Clinical Debridement Subcutaneous -Post Debridement Size (cm) - Length 2.2 -Post Debridement Size (cm) - Width 1.9 -Post Debridement Size (cm) - Depth 0.1 -Total Square Cm 4.18 -Wound/Ulcer Outcome Not Healed -Ulcer Cleansing Rinsed/ Irrigated with Saline -Foul Odor after Cleansing No -Bioengineered Tissue No -Topical Lidocaine (%) 5 -Bleeding Controlled with Pressure -Treatment Response Procedure Tolerated Well [See Physician Procedure note for Specifics] Pain Scale: 0-10 Numeric [Pain] -Is Patient Pain Free? Yes Psych/Mental Status: Normal Affect, Appropriate Debridement Note Post-Debridement Measurements/Treatment WC - Nurse 2 - General Ulcer CM Notes Start: 12/12/17 13:36 Freq: Status: Active Protocol: Activity Type Activity Date Activity User E-Sign Co-Sign Detail Recorded Client Recorded Date Recorded By Document 12/12/17 15:48 TM [id number] 12/12/17 16:00 TM Document 12/19/17 13:37 TM [id number] 12/19/17 13:48 TM Document 12/26/17 15:13 TM [id number] 12/26/17 15:16 TM Document 01/02/18 14:10 TM [id number] 01/02/18 14:12 TM 12/12/17 12/19/17 12/26/17 15:48 13:37 15:13 Wound Center Nurse 2 #2 RIGHT INFERIOR LINCOLN -Time 15:49 13:46 15:14 -Correct Patient Yes Yes Yes -Correct Side, Site, Position Yes Yes Yes -Correct Procedure Yes Yes Yes -Procedure Performed Yes Yes Yes -Type of Procedure Debridement Debridement Debridement -Clinical Debridement Subcutaneous Subcutaneous Subcutaneous -Post Debridement Size (cm) - Length 1.9 1.8 1.3 -Post Debridement Size (cm) - Width 1.0 1.2 0.6 -Post Debridement Size (cm) - Depth 0.1 0.2 0.1 -Total Square Cm 1.90 2.16 0.78 -Wound/Ulcer Outcome Not Healed Not Healed Not Healed -Ulcer Cleansing Rinsed/ Rinsed/ Rinsed/ Irrigated with Irrigated with Irrigated with Saline Saline Saline -Foul Odor after Cleansing No No No -Bioengineered Tissue No No No -Topical Lidocaine (%) 5 4 4 -Bleeding Controlled with Pressure Pressure Pressure -Treatment Response Procedure Procedure Procedure Tolerated Well Tolerated Well Tolerated Well #1 RIGHT SUPERIOR LIN[place] CLUSTER -Time 15:49 13:46 15:14 -Correct Patient Yes Yes Yes -Correct Side, Site, Position Yes Yes Yes -Correct Procedure Yes Yes Yes -Procedure Performed Yes Yes Yes -Type of Procedure Debridement Debridement Debridement -Clinical Debridement Subcutaneous Subcutaneous Subcutaneous -Post Debridement Size (cm) - Length 3.5 3.2 3.0 -Post Debridement Size (cm) - Width 6.5 2.5 2.0 -Post Debridement Size (cm) - Depth 0.1 0.1 0.1 -Total Square Cm 22.75 8.00 6.00 -Wound/Ulcer Outcome Not Healed Not Healed -Ulcer Cleansing Rinsed/ Rinsed/ Rinsed/ Irrigated with Irrigated with Irrigated with Saline Saline Saline -Foul Odor after Cleansing No No No -Bioengineered Tissue No No No -Topical Lidocaine (%) 5 4 4 -Bleeding Controlled with Pressure Pressure Pressure -Treatment Response Procedure Procedure Procedure Tolerated Well Tolerated Well Tolerated Well Pain Scale: 0-10 Numeric Is Patient Pain Free? Yes Yes Yes 01/02/18 14:10 Wound Center Nurse 2 #2 RIGHT INFERIOR LINCOLN -Time 14:11 -Correct Patient Yes -Correct Side, Site, Position Yes -Correct Procedure Yes -Procedure Performed Yes -Type of Procedure Debridement -Clinical Debridement Subcutaneous -Post Debridement Size (cm) - Length 0.9 -Post Debridement Size (cm) - Width 0.7 -Post Debridement Size (cm) - Depth 0.1 -Total Square Cm 0.63 -Wound/Ulcer Outcome Not Healed -Ulcer Cleansing Rinsed/ Irrigated with Saline -Foul Odor after Cleansing No -Bioengineered Tissue No -Topical Lidocaine (%) 5 -Bleeding Controlled with Pressure -Treatment Response Procedure Tolerated Well #1 RIGHT SUPERIOR LINCOLN CLUSTER -Time 14:11 -Correct Patient Yes -Correct Side, Site, Position Yes -Correct Procedure Yes -Procedure Performed Yes -Type of Procedure Debridement -Clinical Debridement Subcutaneous -Post Debridement Size (cm) - Length 2.2 -Post Debridement Size (cm) - Width 1.9 -Post Debridement Size (cm) - Depth 0.1 -Total Square Cm 4.18 -Wound/Ulcer Outcome Not Healed -Ulcer Cleansing Rinsed/ Irrigated with Saline -Foul Odor after Cleansing No -Bioengineered Tissue No -Topical Lidocaine (%) 5 -Bleeding Controlled with Pressure -Treatment Response Procedure Tolerated Well Pain Scale: 0-10 Numeric Is Patient Pain Free? Yes Wound debrided: right inferior lincoln Laterality: Right Type of Debridement: Excisional debridement Anesthesia Used: 4% Lidocaine Solution Depth: Down to and including healthy tissue, in the subcutaneous layer Percentage of wound debrided: 100 Instrument Used: 5mm curette Tissue Removed: devitalized tissue, slough Severity: Fat Layer Exposed Amount of bleeding with debridement: Mild Bleeding Controlled with: Compression and gauze Patient tolerated procedure well - Additional Wound Wound debrided: right superior lincoln cluster Laterality: Right Type of Debridement: Excisional debridement Anesthesia Used: 4% Lidocaine Solution Depth: Down to and including healthy tissue, in the subcutaneous layer Percentage of wound debrided: 100 Instrument Used: 5mm curette Tissue Removed: devitalized tissue, slough Severity: Fat Layer Exposed Amount of bleeding with debridement: Mild Bleeding Controlled with: Compression and gauze Patient tolerated procedure: Patient tolerated procedure well Assessment/Plan Active Problems 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 Venous studies were completed and show incompetence in her GSV of her right leg. Referral made to Dr. Underwood regarding possible vascular intervention. I do not feel arterial studies are necessary at this time. Will change her dressing to hydrogel and adaptic and continue compression with tubigrip. Encouraged increased protein intake and elevation of her legs when sitting. F/U in 1 week.
== END 2018-01-09 23:59 ==
LOC: WC 14:00
PROVIDERS: Family Provider Family Medicine; PCP Family Medicine; Visit Provider Family Medicine
DX: S80.811A Abrasion, right lower leg, initial encounter (principal); W45.8XXA Other foreign body or object entering through skin, initial encounter; I48.0 Paroxysmal atrial fibrillation; L03.115 Cellulitis of right lower limb; E66.9 Obesity, unspecified; Z68.36 Body mass index [BMI] 36.0-36.9, adult; Z71.3 Dietary counseling and surveillance; I10 Essential (primary) hypertension; Z79.01 Long term (current) use of anticoagulants; J45.20 Mild intermittent asthma, uncomplicated; Z79.899 Other long term (current) drug therapy
CPT/HCPCS: 11042; 11045; 87070; 87075; 87077; 87186; 87205; 93970; 99213; G0463

== ENCOUNTER 2018-01-16 08:58 | Outpatient (RCR) | payer MEDICARE, OTHER, SELFPAY ==
[2018-01-10 01:37] VITALS: BP 157/67; PULSE 79; RESP 20; TEMP 37.2
[2018-01-16 13:58] VITALS: BP 144/99; PULSE 74; RESP 18; TEMP 37.1
== END 2018-02-08 23:59 ==
LOC: WC 08:58
PROVIDERS: Family Provider Family Medicine; PCP Family Medicine; Visit Provider Family Medicine
DX: Z09 Encounter for follow-up examination after completed treatment for conditions other than malignant neoplasm (principal)

== ENCOUNTER → 2018-03-05 13:33 | Outpatient (CLI) | payer MEDICARE, OTHER, SELFPAY ==
[2018-03-05 13:47] LABS: Prothrombin Time (Protime)PT. 31.5 SECONDS (11.7-14.9)
== END ==
PROVIDERS: Family Provider Family Medicine; PCP Family Medicine; Referring Provider Family Medicine Geriatric Medicine; Visit Provider Family Medicine Geriatric Medicine
DX: I48.91 Unspecified atrial fibrillation (principal)
CPT/HCPCS: 85610

== ENCOUNTER → 2018-03-13 11:08 | Outpatient (CLI) | payer MEDICARE, OTHER, SELFPAY ==
[2018-03-13 13:39] LABS: International Normalized Ratio 2.5; Prothrombin Time (Protime)PT. 27.4 SECONDS (11.7-14.9)
== END ==
PROVIDERS: Family Provider Family Medicine; PCP Family Medicine; Referring Provider Family Medicine
DX: I48.91 Unspecified atrial fibrillation (principal)
CPT/HCPCS: 85610

== ENCOUNTER 2018-05-16 22:06 | Inpatient (IN) | payer MEDICARE, OTHER, SELFPAY ==
[2018-05-16 22:06] VITALS: BMI 36.3
[2018-05-16 22:07] VITALS: BP 171/77; PULSE 91; RESP 16; TEMP 36.7; O2SAT 92; BMI 35.9
--- NOTE | 2018-05-16 22:38 | RAD_ITS ---
STUDY: X-RAY CHEST REASON FOR EXAM: Female, 83 years old. Shortness of breath TECHNIQUE: PA and lateral views of the chest. COMPARISON: 12/20/2017 FINDINGS: Lungs are hyperinflated with coarsened interstitial lung markings but no airspace consolidation or pleural effusion. There is no demonstrated pleural abnormality. There is borderline cardiomegaly. Normal mediastinum and augusto. Normal visualized pulmonary arteries. There is atherosclerotic calcification of the aortic arch with tortuosity. There are diffuse degenerative changes of the visualized thoracic spine. Operative changes of the right proximal humerus again demonstrated. There is no demonstrated abnormality of the visualized soft tissue structures of the upper abdomen. RAD/Chest PA and Lateral IMPRESSION: No airspace consolidation or pleural effusion. Electronically Signed: Gordo Moya MD at 23:30 EST , Service support ,
--- NOTE | 2018-05-16 22:40 | ED.VIS.GEN ---
History of Present Illness Chief Complaint: Cough Informant: Patient Onset: Weeks - 1 Context: Gradual Onset Timing: Continuous Quality: occ productive of clear or rizvi sputum Location: chest Current Severity: Moderate Maximum Severity: Moderate Worsened by: coughing, exertion Relieved by: albuterol partially Associated Symptoms: sob/wheezing/asthma Narrative: Saw her PCP for this yesterday and was prescribed antibiotics, she thinks Ceftin, and prednisone 20 mg daily. She states she was placed on a lower dose because she has been on prednisone a lot lately, the last time was a month ago after having had some nasal polyps removed. She states she has had several family members or children that were sick with colds lately that she was exposed to, she became ill afterwards. She denies any fevers, earache, sore throat, neck stiffness, but she is having swelling in her legs that is not common for her. 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 No new rashes. No recent long travel. History of A. fib for which she is anticoagulated for, no other cardiac history. Denies having any bleeding or hemoptysis lately. - Past Medical History (1) Asthma Status: Chronic Comment: Mild intermittent (2) Benign essential HTN Status: Chronic (3) Depression Status: Chronic (4) Paroxysmal a-fib Status: Chronic Comment: Anticoagulated with Coumadin Antiarrhythmic therapy with dofetilide Past Medical History - Allergies and Home Meds Allergies/Adverse Reactions: Allergies aspirin Allergy (Verified 05/16/18 22:10) Unknown NSAIDS (Non-Steroidal Anti-Inflamma Allergy (Verified 05/16/18 22:10) Unknown Primary Care Physician: Pasha Webster MD [Primary Care Provider] - Surgical History: - - Cholecystectomy Smoking Status: Never smoker - Family History Maternal Family History: Reports: No pertinent history Review of Systems General: Denies: Chills, Fever, Sweats Cardiovascular: Denies: Chest pain, Palpitations Respiratory: Reports: Dyspnea, Cough, Sputum, Dyspnea on exertion. Denies: Orthopnea Gastrointestinal: Denies: Abdominal pain, Nausea, Vomiting, Diarrhea, Melena, Hematochezia Genitourinary: Denies: Dysuria, Hematuria, Frequency Musculoskeletal: Reports: Arthralgias - R knee, chronic, Swelling. Denies: Back pain, Extremity Pain Skin: Denies: Rash, Wounds Neurological: Denies: Headache, Weakness, Numbness Psych: Denies: Depression, Anxiety Endocrine: Denies: Polyuria, Polydipsia Hematologic: Reports: Easy bruising, Easy bleeding Allergy: Denies: Swelling of the mouth, Swelling of the tongue Physical Exam Vital Signs/Narrative: Vital Signs Temp Pulse Resp BP Pulse Ox 05/16/18 22:07 98.0 F 91 16 171/77 H 92 Inital Vital Signs reviewed: Yes General: Well nourished, Well developed Head: Normocephalic, Atraumatic Eyes: Perrl, EOMI ENT: Moist mucous membranes, No rhinorrhea, TM's clear. Negative for: Sinus tenderness Neck: Supple, Nontender, No lymphadenopathy, No JVD Cardiovascular: Regular rate, Regular rhythm, No murmurs. Negative for: Tachycardia Respiratory: No distress, Chest nontender, Wheezing. Negative for: Rales, Rhonchi Abdomen: Soft, Nontender, Nondistended, Normal bowel sounds Back: Nontender, Normal Inspection. Negative for: CVA tenderness Extremities: Nontender, Edema - 1+ BLE to mid-shins Skin: Normal color, No rash Neurological: Alert, Oriented x3, Cranial nerves II-XII grossly intact, Normal Strength, Normal Sensation Psychological: Normal affect Diagnostic/Tx/Re-eval Impressions Chest X-Ray 05/16/18 22:38 IMPRESSION: No airspace consolidation or pleural effusion. Electronically Signed: Gordo Moya MD at 23:30 EST , Service support , 05/16/18 22:38 Chest PA and Lateral [RAD] Stat Laboratory Results 05/16/18 05/16/18 05/16/18 22:45 22:45 22:45 WBC 6.2 RBC 4.34 Hgb 11.7 L Hct 37.3 MCV 85.9 MCH 27.0 MCHC 31.4 L RDW 15.0 H RDW Differential 47.6 H Plt Count 261 MPV 8.9 Immature Gran % (Auto) 0.300 Neut % (Auto) 74.5 H Lymph % (Auto) 14.3 L [place] % (Auto) 10.1 H Eos % (Auto) 0.5 Baso % (Auto) 0.3 Absolute Neuts (auto) 4.6 Absolute Lymphs (auto) 0.88 Total Counted Not Reportable Sodium 140 Potassium 3.3 L Chloride 104 Carbon Dioxide 27.0 Anion Gap 9 BUN 18 Creatinine 0.86 Estim Creat Clear Calc 45.38 Est GFR (MDRD) Af Amer 81 Est GFR (MDRD) Non-Af 67 BUN/Creatinine Ratio 20.9 H Glucose 163 H Calcium 8.9 Troponin I 0.016 B-Natriuretic Peptide 56.4 - Medical Decision Making Given her edema, labs along with BNP were obtained and they are all within normal limits, reassuring. Her chest x-ray shows no infiltrates. She sounds fairly tight and is wheezing a lot on initially. She was treated with IV magnesium sulfate, a stack of nebulizer treatments, and Solu-Medrol 125 mg. On reevaluation, she feels improved but is still wheezing. She is conversing in full sentences. She is on no home oxygen, I turned her nasal cannula off, she hovered around 90-92% on room air. With exertion, she became more dyspneic and wheezy, with oxygen saturations going down to 88%. She is amenable to staying in the hospital which I recommend. Discussed with Dr. Huddleston, agrees with [facility] observation. ED Disposition - Plan for ED Patient: Disposition: Acute Care Hospital [facility] Chief Complaint: Cough Diagnosis: Acute bronchitis, Acute asthma exacerbation, Hypoxemia Referrals: Pasha Webster MD [Primary Care Provider] -
--- NOTE | 2018-05-16 22:44 | ED.DCSUM_ITS ---
History of Present Illness Chief Complaint: Cough Informant: Patient Onset: Weeks - 1 Context: Gradual Onset Timing: Continuous Quality: occ productive of clear or rizvi sputum Location: chest Current Severity: Moderate Maximum Severity: Moderate Worsened by: coughing, exertion Relieved by: albuterol partially Associated Symptoms: sob/wheezing/asthma Narrative: Saw her PCP for this yesterday and was prescribed antibiotics, she thinks Ceftin, and prednisone 20 mg daily. She states she was placed on a lower dose because she has been on prednisone a lot lately, the last time was a month ago after having had some nasal polyps removed. She states she has had several family members or children that were sick with colds lately that she was exposed to, she became ill afterwards. She denies any fevers, earache, sore throat, neck stiffness, but she is having swelling in her legs that is not common for her. 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 No new rashes. No recent long travel. History of A. fib for which she is anticoagulated for, no other cardiac history. Denies having any bleeding or hemoptysis lately. - Past Medical History (1) Asthma Status: Chronic Comment: Mild intermittent (2) Benign essential HTN Status: Chronic (3) Depression Status: Chronic (4) Paroxysmal a-fib Status: Chronic Comment: Anticoagulated with Coumadin Antiarrhythmic therapy with dofetilide Past Medical History - Allergies and Home Meds Allergies/Adverse Reactions: Allergies aspirin Allergy (Verified 05/16/18 22:10) Unknown NSAIDS (Non-Steroidal Anti-Inflamma Allergy (Verified 05/16/18 22:10) Unknown Primary Care Physician: Pasha Webster MD [Primary Care Provider] - Surgical History: - - Cholecystectomy Smoking Status: Never smoker - Family History Maternal Family History: Reports: No pertinent history Review of Systems General: Denies: Chills, Fever, Sweats Cardiovascular: Denies: Chest pain, Palpitations Respiratory: Reports: Dyspnea, Cough, Sputum, Dyspnea on exertion. Denies: Orthopnea Gastrointestinal: Denies: Abdominal pain, Nausea, Vomiting, Diarrhea, Melena, Hematochezia Genitourinary: Denies: Dysuria, Hematuria, Frequency Musculoskeletal: Reports: Arthralgias - R knee, chronic, Swelling. Denies: Back pain, Extremity Pain Skin: Denies: Rash, Wounds Neurological: Denies: Headache, Weakness, Numbness Psych: Denies: Depression, Anxiety Endocrine: Denies: Polyuria, Polydipsia Hematologic: Reports: Easy bruising, Easy bleeding Allergy: Denies: Swelling of the mouth, Swelling of the tongue Physical Exam Vital Signs/Narrative: Vital Signs Temp Pulse Resp BP Pulse Ox 05/16/18 22:07 98.0 F 91 16 171/77 H 92 Inital Vital Signs reviewed: Yes General: Well nourished, Well developed Head: Normocephalic, Atraumatic Eyes: Perrl, EOMI ENT: Moist mucous membranes, No rhinorrhea, TM's clear. Negative for: Sinus tenderness Neck: Supple, Nontender, No lymphadenopathy, No JVD Cardiovascular: Regular rate, Regular rhythm, No murmurs. Negative for: Tachycardia Respiratory: No distress, Chest nontender, Wheezing. Negative for: Rales, Rhonchi Abdomen: Soft, Nontender, Nondistended, Normal bowel sounds Back: Nontender, Normal Inspection. Negative for: CVA tenderness Extremities: Nontender, Edema - 1+ BLE to mid-shins Skin: Normal color, No rash Neurological: Alert, Oriented x3, Cranial nerves II-XII grossly intact, Normal Strength, Normal Sensation Psychological: Normal affect Diagnostic/Tx/Re-eval Impressions Chest X-Ray 05/16/18 22:38 IMPRESSION: No airspace consolidation or pleural effusion. Electronically Signed: Gordo Moya MD at 23:30 EST , Service support , 05/16/18 22:38 Chest PA and Lateral [RAD] Stat Laboratory Results 05/16/18 05/16/18 05/16/18 22:45 22:45 22:45 WBC 6.2 RBC 4.34 Hgb 11.7 L Hct 37.3 MCV 85.9 MCH 27.0 MCHC 31.4 L RDW 15.0 H RDW Differential 47.6 H Plt Count 261 MPV 8.9 Immature Gran % (Auto) 0.300 Neut % (Auto) 74.5 H Lymph % (Auto) 14.3 L [place] % (Auto) 10.1 H Eos % (Auto) 0.5 Baso % (Auto) 0.3 Absolute Neuts (auto) 4.6 Absolute Lymphs (auto) 0.88 Total Counted Not Reportable Sodium 140 Potassium 3.3 L Chloride 104 Carbon Dioxide 27.0 Anion Gap 9 BUN 18 Creatinine 0.86 Estim Creat Clear Calc 45.38 Est GFR (MDRD) Af Amer 81 Est GFR (MDRD) Non-Af 67 BUN/Creatinine Ratio 20.9 H Glucose 163 H Calcium 8.9 Troponin I 0.016 B-Natriuretic Peptide 56.4 - Medical Decision Making Given her edema, labs along with BNP were obtained and they are all within normal limits, reassuring. Her chest x-ray shows no infiltrates. She sounds fairly tight and is wheezing a lot on initially. She was treated with IV magnesium sulfate, a stack of nebulizer treatments, and Solu-Medrol 125 mg. On reevaluation, she feels improved but is still wheezing. She is conversing in full sentences. She is on no home oxygen, I turned her nasal cannula off, she hovered around 90-92% on room air. With exertion, she became more dyspneic and wheezy, with oxygen saturations going down to 88%. She is amenable to staying in the hospital which I recommend. Discussed with Dr. Huddleston, agrees with [facility] observation. ED Disposition - Plan for ED Patient: Disposition: Acute Care Hospital [facility] Chief Complaint: Cough Diagnosis: Acute bronchitis, Acute asthma exacerbation, Hypoxemia Referrals: Pasha Webster MD [Primary Care Provider] -
[2018-05-16] MEDS: MethylPREDNISolone 125 MG/2 ML Vial IV (22:49)
[2018-05-16 22:53] LABS: Absolute Lymphocyte Count 0.88 X10^3/ul (0.83-4.51); Absolute Neutrophil Count 4.6 X10^3/uL (2.0-7.7); Basophil# 0.02 X10^3/uL; Basophil% 0.3 % (0-1); Eosinophil# 0.03 X10^3/uL; Eosinophils% 0.5 % (0-5); Hematocrit 37.3 % (37-47); Hemoglobin 11.7 g/dl (12.0-15.0); Lymphocyte # 0.88 X10^3/ul (4.0); Lymphocyte % 14.3 % (19-41); Mean Corp Hgb Conc 31.4 g/gl (32-36); Mean Corpuscular Volume 85.9 fL (81-99); Mean Platelet Vol. 8.9 fl (6.2-12.0); Monocyte# 0.62 X10^3/uL; Monocyte% 10.1 % (0-10); Neutrophil # 4.59 X10^3/uL (2.7-7.7); Neutrophil % 74.5 % (47-70); Platelet Count 261 K/mm3 (150-450); RBC Distribution Width SD 47.6 fl (35.1-43.9); Red Blood Count 4.34 M/mm3 (4.2-5.4); White Blood Count 6.2 K/mm3 (4.4-11.0)
[2018-05-16 22:54] VITALS: PULSE 85; RESP 20
[2018-05-16 22:54] LABS: POSITIVE COUNT NO; POSITIVE DIFFERENTIAL NO; POSITIVE MORPHOLOGY NO
[2018-05-16] MEDS: Ipratropium/Albuterol Sulfate 3 ML AMPUL.NEB INHALATION (22:54)
[2018-05-16] MEDS: Albuterol 2.5 MG/3 ML VIAL.NEB. INHALATION (22:54)
[2018-05-16 23:17] LABS: Anion Gap 9 (5-15); BUN 18 mg/dL (7-18); BUN/Creat Ratio 20.9 RATIO (10-20); Calcium,Total 8.9 mg/dL (8.5-10.1); Chloride 104 mmol/L (98-107); Creatinine, Serum 0.86 mg/dL (0.55-1.02); EST Glomerular Filtration Rate 67 mL/min (>60); Est Glom Filt Rate - Afr Amer 81 mL/min (>60); Estimated Creatinine Clearance 45.38 ml/min; Glucose 163 mg/dL (74-106); Potassium 3.3 mmol/L (3.5-5.1); Sodium Level 140 mmol/L (136-145)
[2018-05-16 23:23] LABS: BNP,B-Type NATRIURETIC PEPTIDE 56.4 pg/mL (0-100)
[2018-05-17] VITALS (16 sets, daily range): BP systolic 132–174; BP diastolic 58–77; PULSE 80–91; RESP 16–24; TEMP 36.6–36.8; O2SAT 92–98; BMI 35.8
--- NOTE | 2018-05-17 02:09 | PCM.HP.STD ---
Problem List (1) Acute asthma exacerbation Status: Acute History of Present Illness Date of Admission: 05/17/18 Chief Complaint: shortness of breath The patient is a 83 year old F with a significant history of osteoarthritis; A. fib status post 2 unsuccessful ablation and now on Tikosyn and warfarin; hypertension; nasal polyps status post polypectomy; asthma without home oxygen use; who presented with 1 week history of progressively worsening shortness of breath which occurs at rest and increases with mild exertion. Patient saw her PCP the day before the admission was prescribed on antibiotics; presumed to be Ceftin; and prednisone 20 mg. So far patient has taken 3 doses of antibiotics and 3 doses of the prednisone. Associated with her symptoms is wheezing; productive cough of yellow to clear sputum which is thick and foamy. She denies any fever or chills. Also she reports runny nose; postnasal drip and fatigue. Emergency department doctor reported that per nurses patient was 88% on room air whiles walking; and 90-91% on room air whiles at rest. She reported that sometime in March 2018 she had bronchitis for about 5 weeks. Reportedly she has been on multiple courses of prednisone At emergency department on this admission patient was given DuoNeb and albuterol inhalation treatment as well as magnesium sulfate and Solu-Medrol IV. 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) Cellulitis and abscess of right leg (Chronic) Paroxysmal a-fib (Chronic) Anticoagulated with Coumadin Antiarrhythmic therapy with dofetilide Obesity (Chronic) Depression (Chronic) Benign essential HTN (Chronic) Asthma (Chronic) Mild intermittent Allergies aspirin Allergy (Verified 05/16/18 22:10) Unknown NSAIDS (Non-Steroidal Anti-Inflamma Allergy (Verified 05/16/18 22:10) Unknown Home Medications: Ambulatory Orders Medication Instructions Recorded Dofetilide [Tikosyn] 375 mcg PO Q12 04/22/14 Atorvastatin Calcium [Lipitor] 20 mg PO QHS 09/11/14 Albuterol Inhaler [Ventolin Hfa] 1 - 2 puff INHALATION Q4H PRN PRN 09/16/14 #1 inhaler Sertraline HCl [Zoloft] 100 mg PO DAILY 03/10/16 Warfarin [Coumadin ([facility])] 4 mg PO MOWEFR 04/15/16 Warfarin Sodium 3 mg PO SUTUTHSA 05/05/16 Albuterol Aerosols [Ventolin 2.5 mg INHALATION Q4HWA.RT PRN 06/18/17 Aerosols] Amlodipine [Norvasc] 10 mg PO DAILY 12/20/17 Levothyroxine [Synthroid] 50 mcg PO DAILY 12/20/17 Losartan Potassium 50 mg PO DAILY 12/20/17 Ranitidine [Zantac] 150 mg PO BID 12/20/17 Surgical History: cholecystectomy, - - Right arm surgery with plate placed. Lives: Spouse/ Significant Other Smoking Status: Never smoker Alcohol: None - *Family History Maternal Family History: Family History (Last Updated 05/17/18 @ 02:24 by Moises Huddleston MD) Mother Diabetes Review of Systems Constitutional: Reports: Fatigue. Denies: Chills, Fever, Weight Change HEENT: Reports: Post Nasal Drip, Sinus Drainage. Denies: Head Aches Cardiovascular: Reports: Edema - Complains of bilateral leg swelling at the end of the day,chronic. Denies: Chest Pain, Palpitations Respiratory: Reports: Cough, Shortness of breath at rest, Sputum production, Wheezing Gastrointestinal: Denies: Abdominal Pain, Nausea, Vomiting Genitourinary: Denies: Dysuria Musculoskeletal: Denies: Joint Pain, Joint Tenderness Skin: Denies: Rash, Wounds Neurological: Denies: Numbness, Tingling, Focal weakness Psychiatric: Denies: Anxiety, Depression, Homicidal Ideations, Suicidal Ideations Hematologic/ Lymphatic: Denies: Easy Bruising, Easy Bleeding VTE Information - Inpt Only VTE Present on Admission: No VTE Mechan Device Prophylaxis: None VTE Pharm Prophylaxis ordered?: No Reason prophylaxis not ordered:: Treatment Not Indicated - On Coumadin for A. fib; Coumadin continued. Patient Problems: Active and Suspected Problems Acute bronchitis (Acute) Acute asthma exacerbation (Acute) Hypoxemia (Acute) - Physical Exam General: Alert, Oriented x3, Cooperative HEENT: Atraumatic, PERRLA, EOMI, Normocephalic Neck: Supple, No JVD, Negative Carotid Bruits Lungs: Diminished, Wheezes Cardiovascular: Regular rate, No murmurs Abdomen: Bowel Sounds Present, Soft, Non Tender Extremities: No edema, Capillary Refill Less than 3 Seconds Skin: No rashes, No breakdown Musculoskeletal: No Muscle Wasting Neurological: Neuro grossly intact Psych/Mental Status: Normal Affect, Appropriate Vital Signs Temp Pulse Resp BP Pulse Ox 98.0 F 85 18 174/74 H 92 05/16/18 22:07 05/17/18 01:10 05/17/18 01:10 05/17/18 01:10 05/17/18 01:10 Oxygen Delivery Method Room Air Weight: 97.976 kg Body Mass Index (BMI) 35.9 Laboratory Tests Past 24 Hrs 05/16/18 05/16/18 05/16/18 22:45 22:45 22:45 WBC 6.2 RBC 4.34 Hgb 11.7 L Hct 37.3 MCV 85.9 MCH 27.0 MCHC 31.4 L RDW 15.0 H RDW Differential 47.6 H Plt Count 261 MPV 8.9 Immature Gran % (Auto) 0.300 Neut % (Auto) 74.5 H Lymph % (Auto) 14.3 L [place] % (Auto) 10.1 H Eos % (Auto) 0.5 Baso % (Auto) 0.3 Absolute Neuts (auto) 4.6 Absolute Lymphs (auto) 0.88 Total Counted Not Reportable Sodium 140 Potassium 3.3 L Chloride 104 Carbon Dioxide 27.0 Anion Gap 9 BUN 18 Creatinine 0.86 Estim Creat Clear Calc 45.38 Est GFR (MDRD) Af Amer 81 Est GFR (MDRD) Non-Af 67 BUN/Creatinine Ratio 20.9 H Glucose 163 H Calcium 8.9 Troponin I 0.016 B-Natriuretic Peptide 56.4 Assessment/Plan All Active Problems Acute bronchitis (Acute) Acute asthma exacerbation (Acute) Hypoxemia (Acute) The patient is a 83 year old F with a significant history of osteoarthritis; A. fib status post 2 unsuccessful ablation and now on Tikosyn and warfarin; hypertension; and; nasal polyps status post polypectomy; asthma without home oxygen use who presented with 1 week history of progressively worsening shortness of breath which occurs at rest and increases with mild exertion and who was recently started on outpatient prednisone and antibiotics consistent with asthma exacerbation.. Acute exacerbation of asthma. CXR independently reviewed confirms hyperinflation with coarsened interstitial lung markings but no airspace consolidation or pleural effusion. Scheduled DuoNeb Albuterol as needed Solu-Medrol We will hold off antibiotics at this time. Mucinex and Flonase ordered. Rapid influenza screen and comprehensive respiratory pathogen panel ordered. Incentives parameter and acapella ordered. Oxygen as needed Hypokalemia Admission potassium was 3.3. This could be due to albuterol breathing treatment. Replaced Trend BMP. Paroxysmal A. fib Tikosyn and warfarin continued Admitted to medicine for placed on telemetry. Daily PT/INR. Hypertension On admission her blood pressure was not within goal. Losartan and amlodipine continued. As needed hydralazine added. Hyperlipidemia Lipitor continued GERD Zantac continue Depression: Zoloft continued Hypothyroidism Synthroid continued DVT prophylaxis: Not indicated while patient on therapeutic coagulation with Coumadin for history of A. fib. Warfarin continued. Code Visit OBSV E&M: 93511 Initial observation care L3
[2018-05-17] MEDS: Albuterol 2.5 MG/3 ML VIAL.NEB. INHALATION (04:50)
[2018-05-17] MEDS: Levothyroxine 50 MCG Tablet PO (05:38)
[2018-05-17] MEDS: guaiFENesin 1,200 MG Tablet 1200 MG PO ×2 (05:38→21:53)
[2018-05-17 06:26] LABS: Anion Gap 12 (5-15); BUN 16 mg/dL (7-18); BUN/Creat Ratio 18.1 RATIO (10-20); Calcium,Total 8.9 mg/dL (8.5-10.1); Chloride 105 mmol/L (98-107); Creatinine, Serum 0.88 mg/dL (0.55-1.02); EST Glomerular Filtration Rate 65 mL/min (>60); Est Glom Filt Rate - Afr Amer 79 mL/min (>60); Estimated Creatinine Clearance 44.35 ml/min; Glucose 185 mg/dL (74-106); Potassium 3.7 mmol/L (3.5-5.1); Sodium Level 141 mmol/L (136-145)
[2018-05-17] MEDS: Ipratropium/Albuterol Sulfate 3 ML AMPUL.NEB INHALATION ×4 (07:07→18:56)
[2018-05-17] MEDS: Dofetilide 125 MCG Capsule 375 MCG PO ×2 (08:57→21:53)
[2018-05-17] MEDS: Sertraline 100 MG Tablet PO (08:57)
[2018-05-17] MEDS: Losartan Potassium 50 MG Tablet PO (08:57)
[2018-05-17] MEDS: Famotidine 20 MG Tablet PO ×2 (08:57→21:53)
[2018-05-17 10:19] LABS: International Normalized Ratio 2.3
--- NOTE | 2018-05-17 10:53 | PN_ITS ---
Patient Problems: Active and Suspected Problems Acute bronchitis (Acute) Acute asthma exacerbation (Acute) Hypoxemia (Acute) Subjective: The patient is an 83-year-old female with a past medical history of osteoarthritis, atrial fibrillation with history of 2 unsuccessful ablations and now on Tikosyn and long-term anticoagulation with warfarin, hypertension, nasal polyps status post polypectomy, obesity, asthma chronic respiratory failure with hypoxemia on home oxygen and depression who presented to the ED at [facility] on 05/17/18 complaining of a one-week history of progressive shortness of breath. She saw her PCP on 05/16/2018 and was prescribed antibiotics and prednisone. Vital signs at presentation to the emergency room were temp 98, pulse rate 91, blood pressure 171/77, respiratory rate 16 and she was 92% saturated on room air. White blood cell count was within normal limits at 6.2 with 74% neutrophils. INR was therapeutic at 2.3. Potassium was low at 3.3 and was supplemented. Random glucose was elevated at 163. BNP was normal at 56. Troponin was 0.016. Chest x-ray showed no acute findings. The lungs are hyperinflated with increased interstitial lung markings. She was admitted to the hospital and started on aerosolized bronchodilators, high-dose intravenous steroids and guaifenesin. rspiratory panel is positive for RSV B Influenza swab was negative Afebrile since admission. Vital signs are stable. She is 94-96% saturated on 2 L nasal cannula. Objective: PHYSICAL EXAM: GENERAL: alert, oriented X 3, Cooperative, looks ill ORAL: moist mucosa, no mucosal lesions NECK: No JVD, supple, trachea midline LUNGS: diminished with scattered end expiratory wheezing, symmetric chest expansion, Neck at rest, no conversational dyspnea, no accessory muscle use HEART: RRR, Normal S1 and S2, no rub, no gallop, no gallop ABDOMEN: soft, NT, ND, BS present, no guarding with palpation EXTREMITIES: no edema, no cyanosis, no calf tenderness SKIN: No rashes, no breakdown NEUROLOGIC: no focal neurologic deficits PSYCH: appropriate, normal affect, pleasant - Physical Exam Vital Signs Temp Pulse Resp BP Pulse Ox 98.0 F 91 20 H 146/64 H 94 05/17/18 08:55 05/17/18 08:55 05/17/18 08:55 05/17/18 08:55 05/17/18 08:55 Oxygen Flow Rate (L/min) 2 Oxygen Delivery Method Nasal Cannula Weight: 215 lb 6.266 oz Body Mass Index (BMI) 35.8 Microbiology Past 72 Hours 05/17/18 04:50 Respiratory Panel (PCR) - Final Mucosa - Nasopharyngeal RSV B 05/17/18 04:50 Influenza Types A,B Direct FA (SIMRAN) - Final Mucosa - Nasopharyngeal Laboratory Tests Past 24 Hrs 05/16/18 05/16/18 05/16/18 22:45 22:45 22:45 WBC 6.2 RBC 4.34 Hgb 11.7 L Hct 37.3 MCV 85.9 MCH 27.0 MCHC 31.4 L RDW 15.0 H RDW Differential 47.6 H Plt Count 261 MPV 8.9 Immature Gran % (Auto) 0.300 Neut % (Auto) 74.5 H Lymph % (Auto) 14.3 L [place] % (Auto) 10.1 H Eos % (Auto) 0.5 Baso % (Auto) 0.3 Absolute Neuts (auto) 4.6 Absolute Lymphs (auto) 0.88 Total Counted Not Reportable PT INR Sodium 140 Potassium 3.3 L Chloride 104 Carbon Dioxide 27.0 Anion Gap 9 BUN 18 Creatinine 0.86 Estim Creat Clear Calc 45.38 Est GFR (MDRD) Af Amer 81 Est GFR (MDRD) Non-Af 67 BUN/Creatinine Ratio 20.9 H Glucose 163 H Calcium 8.9 Troponin I 0.016 B-Natriuretic Peptide 56.4 05/17/18 05/17/18 05:34 10:02 WBC RBC Hgb Hct MCV MCH MCHC RDW RDW Differential Plt Count MPV Immature Gran % (Auto) Neut % (Auto) Lymph % (Auto) [place] % (Auto) Eos % (Auto) Baso % (Auto) Absolute Neuts (auto) Absolute Lymphs (auto) Total Counted PT 25.0 H INR 2.3 Sodium 141 Potassium 3.7 Chloride 105 Carbon Dioxide 24.0 Anion Gap 12 BUN 16 Creatinine 0.88 Estim Creat Clear Calc 44.35 Est GFR (MDRD) Af Amer 79 Est GFR (MDRD) Non-Af 65 BUN/Creatinine Ratio 18.1 Glucose 185 H Calcium 8.9 Troponin I B-Natriuretic Peptide Medical Necessity - Tobacco Use Smoking Status: Never smoker Assessment/Plan All Active Problems Acute bronchitis (Acute) Acute asthma exacerbation (Acute) Hypoxemia (Acute) Impressions 1. Acute exacerbation of asthma secondary to RSV B infection 2. RSV B tracheobronchitis 3. Paroxysmal atrial fibrillation 4. Hypertension 5. Depression 6. Asthma 7. Chronic anticoagulation with warfarin 8. Hypokalemia-resolved with supplementation 9. Hyperglycemia with no history of diabetes mellitus 10. hypomagnesemia Hemoglobin A1c, CMP, magnesium and repeat CBC in the a.m. Continue steroids and aerosolized bronchodilators Accu-Cheks before meals and at bedtime and sliding scale insulin Robitussin DM 1-2 tsps Q 4 Hours as needed for cough Code Visit Inpatient E&M: 84941 Subs Hosp L2
[2018-05-17] MEDS: Insulin Lispro 100 UNIT/ML INSULN.PEN SC (21:51)
[2018-05-17 21:52] LABS: Bedside Glucose 176 mg/dL (70-110)
[2018-05-17] MEDS: Fluticasone 0.05% 1 SPRAY NASAL.SRY NASAL (21:52)
[2018-05-17] MEDS: amLODIPine 10 MG Tablet PO (21:53)
[2018-05-17] MEDS: Atorvastatin Calcium 20 MG Tablet PO (21:53)
[2018-05-17] MEDS: 0.9% NaCl Peripheral Flush Adult/Peds IV (21:54)
[2018-05-18] VITALS (14 sets, daily range): BP systolic 121–177; BP diastolic 69–89; PULSE 77–95; RESP 16–20; TEMP 36.5–36.9; O2SAT 93–97
[2018-05-18] MEDS: Albuterol 2.5 MG/3 ML VIAL.NEB. INHALATION (04:32)
[2018-05-18 05:40] LABS: Hemoglobin 11.8 g/dl (12.0-15.0); Mean Corp Hgb Conc 31.1 g/gl (32-36); Mean Corpuscular Hgb 26.9 pg (27.0-32.0); Mean Corpuscular Volume 86.8 fL (81-99); Mean Platelet Vol. 9.4 fl (6.2-12.0); Platelet Count 288 K/mm3 (150-450); RBC Distribution Width CV 15.3 % (11.6-14.6); RBC Distribution Width SD 48.9 fl (35.1-43.9); Red Blood Count 4.38 M/mm3 (4.2-5.4); White Blood Count 10.6 K/mm3 (4.4-11.0)
[2018-05-18 05:47] LABS: AST(SGOT) 33 U/L (15-37); Alanine Aminotransfer ALT/SGPT 33 U/L (13-56); Albumin, Serum 3.5 g/dL (3.2-5.0); Alkaline Phosphatase 84 U/L (45-117); Anion Gap 10 (5-15); BUN 28 mg/dL (7-18); BUN/Creat Ratio 31.7 RATIO (10-20); Calcium,Total 9.1 mg/dL (8.5-10.1); Chloride 104 mmol/L (98-107); Creatinine, Serum 0.88 mg/dL (0.55-1.02); EST Glomerular Filtration Rate 65 mL/min (>60); Est Glom Filt Rate - Afr Amer 79 mL/min (>60); Estimated Creatinine Clearance 44.35 ml/min; Globulin 3.6 g/dL (2.2-4.2); Glucose 152 mg/dL (74-106); Magnesium 2.4 mg/dL (1.6-2.6); Phosphorus 3.2 mg/dL (2.5-4.9); Potassium 4.5 mmol/L (3.5-5.1); Protein, Total 7.1 g/dL (6.4-8.2); Sodium Level 138 mmol/L (136-145)
[2018-05-18 06:14] LABS: International Normalized Ratio 2.7; Prothrombin Time (Protime)PT. 28.9 SECONDS (11.7-14.9)
[2018-05-18 06:25] LABS: Scan Indicated on CBC? Y/N NO
[2018-05-18] MEDS: Levothyroxine 50 MCG Tablet PO (06:47)
[2018-05-18] MEDS: Insulin Lispro 100 UNIT/ML INSULN.PEN SC ×4 (06:47→22:20)
[2018-05-18] MEDS: 0.9% NaCl Peripheral Flush Adult/Peds IV ×2 (06:47→22:15)
[2018-05-18 06:55] LABS: Bedside Glucose 156 mg/dL (70-110)
[2018-05-18] MEDS: Ipratropium/Albuterol Sulfate 3 ML AMPUL.NEB INHALATION ×3 (06:56→19:44)
[2018-05-18 07:59] LABS: Hemoglobin A1c 7.1 % (4.2-6.3)
--- NOTE | 2018-05-18 08:21 | PCM.PROGNOTE ---
Patient Problems: Active and Suspected Problems Acute bronchitis (Acute) Acute asthma exacerbation (Acute) Hypoxemia (Acute) Subjective: Chief complaint: Follow-up after admission for acute asthma exacerbation due to viral tracheal bronchitis with RSVP, complicated by hypoxia and also found to have mild hypokalemia. Patient seen and examined. No acute events overnight. This morning, she complained of hand tremors and being hot. Her wound seemed to be hot as well. She just received DuoNeb nebulizer and probably that is why she is shaky and having tremors. She reported improvement in her shortness of breath, still complaining of dry cough. She mentioned that she was more short of breath when she went to the bathroom this morning. She has been afebrile, blood pressure and heart are stable, pulse ox was 97% on 2 L, was taken off oxygen and pulse ox remained around 94%. - Physical Exam General: Alert, Oriented x3, Cooperative, - - Minimally short of breath. HEENT: Atraumatic, PERRLA, EOMI, Normocephalic Oral: Moist Mucosa, No Gingival or Mucosal Lesions/ Ulcerations Neck: Supple, No JVD, Negative Carotid Bruits, Trachea Midline, Thyroid Normal Size and Texture Lungs: No rhonchi, No rales, Diminished, Short of Breath, Wheezes, - - Decreased breath sounds bilateral, bilateral expiratory wheezes. Cardiovascular: Regular rate, Regular Rhythm, Normal S1, Normal S2, PMI Normal Abdomen: Bowel Sounds Present, Soft, Non Tender, Non-Distended, No Hepato-splenomegaly, Obese Extremities: No clubbing, No cyanosis, No edema Skin: No rashes, No breakdown Lymphatic: No Cervical, Supraclavicular, or Inguinal Adenopathy Neurological: Cranial nerves II-XII grossly intact, Motor Exam 5/5 strength throughout Psych/Mental Status: Normal Affect, Appropriate, Alert and oriented to time, place, person, mood and affect Vital Signs Temp Pulse Resp BP Pulse Ox 97.9 F 88 20 H 121/69 H 97 05/18/18 06:40 05/18/18 06:56 05/18/18 06:56 05/18/18 06:40 05/18/18 06:56 Oxygen Flow Rate (L/min) 2 Oxygen Delivery Method Nasal Cannula Weight: 215 lb 6.266 oz Body Mass Index (BMI) 35.8 Intake and Output for Last 24 Hours 05/16/18 05/17/18 05/18/18 23:59 23:59 23:59 Intake Total 750 / 750 120 / 120 Output Total 200 / 200 550 / 550 Balance 550 / 550 -430 / -430 Microbiology Past 72 Hours 05/17/18 04:50 Respiratory Panel (PCR) - Final Mucosa - Nasopharyngeal RSV B 05/17/18 04:50 Influenza Types A,B Direct FA (SIMRAN) - Final Mucosa - Nasopharyngeal Laboratory Tests Past 24 Hrs 05/17/18 05/18/18 05/18/18 10:02 05:00 05:00 WBC 10.6 RBC 4.38 Hgb 11.8 L Hct 38.0 MCV 86.8 MCH 26.9 L MCHC 31.1 L RDW 15.3 H RDW Differential 48.9 H Plt Count 288 MPV 9.4 PT 25.0 H 28.9 H INR 2.3 2.7 Sodium Potassium Chloride Carbon Dioxide Anion Gap BUN Creatinine Estim Creat Clear Calc Est GFR (MDRD) Af Amer Est GFR (MDRD) Non-Af BUN/Creatinine Ratio Glucose Hemoglobin A1c Calcium Phosphorus Magnesium Total Bilirubin AST ALT Alkaline Phosphatase Total Protein Albumin Globulin Albumin/Globulin Ratio 05/18/18 05/18/18 05:00 05:00 WBC RBC Hgb Hct MCV MCH MCHC RDW RDW Differential Plt Count MPV PT INR Sodium 138 Potassium 4.5 Chloride 104 Carbon Dioxide 24.0 Anion Gap 10 BUN 28 H Creatinine 0.88 Estim Creat Clear Calc 44.35 Est GFR (MDRD) Af Amer 79 Est GFR (MDRD) Non-Af 65 BUN/Creatinine Ratio 31.7 H Glucose 152 H Hemoglobin A1c 7.1 H Calcium 9.1 Phosphorus 3.2 Magnesium 2.4 Total Bilirubin 0.40 AST 33 ALT 33 Alkaline Phosphatase 84 Total Protein 7.1 Albumin 3.5 Globulin 3.6 Albumin/Globulin Ratio 1.0 POC Glucose 05/18/18 05/17/18 06:39 21:36 POC Glucose 156 H 176 H Medical Necessity - Tobacco Use Smoking Status: Never smoker Assessment/Plan All Active Problems Acute bronchitis (Acute) Acute asthma exacerbation (Acute) Hypoxemia (Acute) This is an 83 years old female patient presented to the ED because of shortness of breath, found to have acute asthma exacerbation secondary to RSV B tracheal bronchitis and also found to have hypoxia and mild hypokalemia. #1 acute asthma exacerbation/viral tracheobronchitis with RSVP: She is on bronchodilators and IV steroids. Chest x-ray showed no acute infiltrate or conservation. Pneumonia ruled out. She has been afebrile, no leukocytosis. She reported some improvement in her symptoms, short of breath and this morning, she has been off oxygen. She still having wheezing and she is getting more short of breath upon ambulation. Plan: Continue IV steroids, continue bronchodilators, ambulate, wean off oxygen. #2 hypoxia: Secondary to above. She does have a history of mild asthma in the past. She never been on oxygen at home. Chest x-ray reviewed as above. Plan as above, wean off oxygen as tolerated. #3 mild hypokalemia: Replaced and corrected, today's potassium is 4.5. Serum phosphorus and magnesium are normal. #4 paroxysmal atrial fibrillation: Rate has been controlled, continue Tikosyn for rate control and Coumadin for anticoagulation. INR is 2.7, therapeutic. #5 hypertension: Blood pressure stable, continue Norvasc, losartan and IV hydralazine as needed. #6 hypothyroidism: Continue levothyroxine. #7 hyperlipidemia: Continue statins. #8 depression: Continue Zoloft. #9 DVT prophylaxis: INR is 2.7. This note was generated with [employer] dictation software. It may contain incorrect words, spelling, and punctuation that were not noted in checking the note before signing. Code Visit Inpatient E&M: 06519 Subs Hosp L2
[2018-05-18] MEDS: guaiFENesin 1,200 MG Tablet 1200 MG PO ×2 (10:18→22:14)
[2018-05-18] MEDS: Dofetilide 125 MCG Capsule 375 MCG PO ×2 (10:19→22:24)
[2018-05-18] MEDS: Sertraline 100 MG Tablet PO (10:20)
[2018-05-18] MEDS: Losartan Potassium 50 MG Tablet PO (10:20)
[2018-05-18] MEDS: Famotidine 20 MG Tablet PO ×2 (10:20→22:14)
[2018-05-18] MEDS: Fluticasone 0.05% 1 SPRAY NASAL.SRY NASAL ×2 (10:20→22:19)
[2018-05-18 12:11] LABS: Bedside Glucose 199 mg/dL (70-110)
--- NOTE | 2018-05-18 13:25 | CASEMGMT ---
RN VALERY Face to Face with patient for initial transition planning/care coordination assessment. RN CM introduced self and role at [facility]. Patient sitting in chair, alert and oriented. Patient willing to participate in assessment and is able to answer all questions appropriately. Care providers, pharmacy, and demographics verified. Patient wishes to discharge home, denies need for home health at this time. Patient states he has no further needs or concerns at this time. CM to follow for discharge planning needs that may arise. PCP: Eleanor Specialists: Edi passement[employer] worker Preferred Pharmacy: [facility] Insurance: [facility] Prescription Benefit:No Living Will/HPOA: None LNOK: Living Arrangements: Patient lives with in 2 story home with bed and bath on first floor. Patient independent at home. Transportation: Self/ DME/HHC: Patient has shower chair, raised toilet, and nebulizer at home. Disposition Plan: Patient to discharge home with family support and follow-up plans in place. Funmi BRAGA, RN, CM
--- NOTE | 2018-05-18 14:23 | NURSING ---
IV ATTEMPT X3 WITHOUT SUCCESS.
[2018-05-18] MEDS: Glucerna Shake 120 ML LIQUID PO ×3 (15:18→22:13)
[2018-05-18 16:26] LABS: Bedside Glucose 169 mg/dL (70-110)
[2018-05-18] MEDS: amLODIPine 10 MG Tablet PO (22:14)
[2018-05-18] MEDS: Atorvastatin Calcium 20 MG Tablet PO (22:14)
[2018-05-18 22:31] LABS: Bedside Glucose 208 mg/dL (70-110)
[2018-05-19] VITALS (9 sets, daily range): BP systolic 142–145; BP diastolic 68–69; PULSE 66–80; RESP 16–20; TEMP 36.5–36.6; O2SAT 92–94
--- NOTE | 2018-05-19 02:21 | CPS ---
Did not administer pt's 1 AM Aerosol Treatment. Pt. requested not to be woke up for scheduled hourly 1 AM treatment when I gave her 7 PM treatment. Pt. told me she had been restless the past couple of days and needed sleep. Pt. also didn't show any major distress and said her breathing has been good throughout day.
[2018-05-19] MEDS: Levothyroxine 50 MCG Tablet PO (06:47)
[2018-05-19] MEDS: 0.9% NaCl Peripheral Flush Adult/Peds IV (06:47)
[2018-05-19] MEDS: Insulin Lispro 100 UNIT/ML INSULN.PEN SC (06:47)
[2018-05-19 07:00] LABS: Bedside Glucose 152 mg/dL (70-110)
[2018-05-19] MEDS: Ipratropium/Albuterol Sulfate 3 ML AMPUL.NEB INHALATION ×2 (07:05→12:30)
[2018-05-19] MEDS: Losartan Potassium 50 MG Tablet PO (09:28)
[2018-05-19] MEDS: guaiFENesin 1,200 MG Tablet 1200 MG PO (09:29)
[2018-05-19] MEDS: Fluticasone 0.05% 1 SPRAY NASAL.SRY NASAL (09:29)
[2018-05-19] MEDS: Famotidine 20 MG Tablet PO (09:30)
[2018-05-19] MEDS: Sertraline 100 MG Tablet PO (09:30)
[2018-05-19] MEDS: Dofetilide 125 MCG Capsule 375 MCG PO (09:30)
--- NOTE | 2018-05-19 10:14 | NURSING ---
pt pox 94% on room air with pulse of 77, ambulatory in room on room air 93% oulse of 83-d/t illness, pt unable to walk outside of room
--- NOTE | 2018-05-19 10:49 | DCINST_ITS ---
- Discharge Diagnoses Current Active Problems: Current Active and Chronic Problems Acute bronchitis (Acute) Acute asthma exacerbation (Acute) Hypoxemia (Acute) You will use the following diet at home:: Cardiac Your food should be the consistency of: Regular Discharge Activity: Return to Normal Activity Weight Bearing Status: Weight bearing as tolerated Call your doctor if you observe: Fever of 101 or Higher, Shortness of breath, Dizziness, Fainting spells, Chest pain, Increased palpitations (irregular heartbeat), Uncontrolled pain Additional Instructions: Your INR today is 3. Do not take your Coumadin tonight, resume taking Coumadin tomorrow. Allergies/Adverse Reactions: Allergies aspirin Allergy (Verified 05/16/18 22:10) Unknown NSAIDS (Non-Steroidal Anti-Inflamma Allergy (Verified 05/16/18 22:10) Unknown Medications to take at Discharge Dofetilide [Tikosyn] 375 mcg PO Q12 04/22/14 Atorvastatin Calcium [Lipitor] 20 mg PO QHS 09/11/14 Albuterol Inhaler [Ventolin Hfa] 1 - 2 puff INHALATION Q4H PRN PRN #1 inhaler 09/16/14 Sertraline HCl [Zoloft] 100 mg PO DAILY 03/10/16 Warfarin [Coumadin] 4 mg PO MOWEFR 04/15/16 Warfarin Sodium 3 mg PO SUTUTHSA 05/05/16 Albuterol Aerosols [Ventolin Aerosols] 2.5 mg INHALATION Q4HWA.RT PRN 06/18/17 Amlodipine [Norvasc] 10 mg PO DAILY 12/20/17 Levothyroxine [Synthroid] 50 mcg PO DAILY 12/20/17 Losartan Potassium 50 mg PO DAILY 12/20/17 Ranitidine [Zantac] 150 mg PO BID 12/20/17 Fluticasone 0.05% [Flonase Nasal [place]] 1 spray NASAL BID #1 nasal.sry 05/19/18 Pseudoephedrine HCl [Sudafed] 30 mg PO Q6H PRN PRN #10 tablet 05/19/18 predniSONE tablet 40 mg PO DAILY@0800 #10 tablet 05/19/18 The following prescriptions were given: Pseudoephedrine HCl [Sudafed] 30 mg PO Q6H PRN PRN #10 tablet PRN Reason: Congestion predniSONE tablet 40 mg PO DAILY@0800 #10 tablet Fluticasone 0.05% [Flonase Nasal [place]] 1 spray NASAL BID #1 nasal.sry Primary Care Physician: Pasha Webster MD [Primary Care Provider] - Please follow up with your Primary Care Physician in: 1 week. Test Results: Test results from this visit will be discussed in further detail at your follow- up appointment, if applicable.
--- NOTE | 2018-05-19 13:42 | DS.PCM_ITS ---
Discharge Date and Diagnosis Date of Admission: 05/16/18 Date of Discharge: 05/19/18 - Primary Discharge Diagnosis #1 acute asthma exacerbation. #2 respiratory syncytial virus type B tracheobronchitis. #3 hypoxia. #4 mild hypokalemia. 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 Electronically Signed: Gordo Moya MD at 23:30 EST , Service support , Operations: None Procedures: None Summary of Care Provided: Patient seen and examined on the day of discharge and appeared to be stable to be discharged home. Symptoms of shortness of breath and wheezing improved. Still complained of some nasal and sinus congestion. She has been afebrile. She has been off oxygen, other vital signs are stable. The patient is a 83 year old F admitted because of shortness of breath, wheezing and dry cough and she was found to have acute exacerbation of asthma secondary to respiratory syncytial virus type B tracheobronchitis and complicated by hy poxia and also found to have mild hypokalemia. Chest x-ray showed no acute infiltrate, consolidation or effusion and pneumonia ruled out. Respiratory panel for viruses came back positive for RSV type B. Her routine blood work was unremarkable and there was no leukocytosis. Patient remained afebrile throughout admission. She was treated with IV steroids and bronchodilators as well as decongestants. With treatment, her symptoms improved and we were able to take her off oxygen. On the day of discharge, walking pulse oximeter performed and her pulse ox was 93% on room air with ambulation. Patient was on Coumadin for history of A. fib and her INR upon discharge was 3. Patient discharged home in a stable medical condition, discharged on prednisone 40 mg p.o. daily for 5 days without tapering, discharged on Flonase spray as well as Sudafed for congestion, no antibiotic given upon discharge because there was no indication for, requested to not take Coumadin tonight because her INR today was 3, instructed to resume Coumadin tomorrow follow-up with PCP in 1 week. - Physical Exam General: Alert, Oriented x3, Cooperative HEENT: Atraumatic, PERRLA, EOMI, Normocephalic Oral: Moist Mucosa, No Gingival or Mucosal Lesions/ Ulcerations Neck: Supple, No JVD, Negative Carotid Bruits, Trachea Midline, Thyroid Normal Size and Texture Lungs: Clear to auscultation, No rhonchi, No wheeze, No rales, Diminished Cardiovascular: Regular rate, Regular Rhythm, Normal S1, Normal S2, PMI Normal Abdomen: Bowel Sounds Present, Soft, Non Tender, Non-Distended, No Hepato- splenomegaly Extremities: No clubbing, No cyanosis, No edema Skin: No rashes, No breakdown Lymphatic: No Cervical, Supraclavicular, or Inguinal Adenopathy Neurological: Cranial nerves II-XII grossly intact, Neuro grossly intact Psych/Mental Status: Normal Affect, Appropriate Vital Signs Temp Pulse Resp BP Pulse Ox 97.9 F 80 20 H 142/68 H 94 05/19/18 10:18 05/19/18 10:18 05/19/18 12:30 05/19/18 10:18 05/19/18 10:18 Oxygen Flow Rate (L/min) 2 Oxygen Delivery Method Room Air Weight: 215 lb 6.266 oz Body Mass Index (BMI) 35.8 Intake and Output for Last 24 Hours 05/17/18 05/18/18 05/19/18 23:59 23:59 23:59 Intake Total 750 / 750 120 / 120 400 / 400 Output Total 200 / 200 550 / 550 Balance 550 / 550 -430 / -430 400 / 400 Microbiology Past 72 Hours 05/17/18 04:50 Respiratory Panel (PCR) - Final Mucosa - Nasopharyngeal RSV B 05/17/18 04:50 Influenza Types A,B Direct FA (SIMRAN) - Final Mucosa - Nasopharyngeal Laboratory Tests Past 24 Hrs 05/19/18 05:20 PT 31.0 H INR 3.0 POC Glucose 05/19/18 05/18/18 05/18/18 06:44 22:12 16:13 POC Glucose 152 H 208 H 169 H Discharge Activity: Return to Normal Activity Weight Bearing Status: Weight bearing as tolerated Call your doctor if you observe: Fever of 101 or Higher, Shortness of breath, Dizziness, Fainting spells, Chest pain, Increased palpitations (irregular heartbeat), Uncontrolled pain Home Medications: Medications to take at Discharge Dofetilide [Tikosyn] 375 mcg PO Q12 04/22/14 Atorvastatin Calcium [Lipitor] 20 mg PO QHS 09/11/14 Albuterol Inhaler [Ventolin Hfa] 1 - 2 puff INHALATION Q4H PRN PRN #1 inhaler 09/16/14 Sertraline HCl [Zoloft] 100 mg PO DAILY 03/10/16 Warfarin [Coumadin] 4 mg PO MOWEFR 04/15/16 Warfarin Sodium 3 mg PO SUTUTHSA 05/05/16 Albuterol Aerosols [Ventolin Aerosols] 2.5 mg INHALATION Q4HWA.RT PRN 06/18/17 Amlodipine [Norvasc] 10 mg PO DAILY 12/20/17 Levothyroxine [Synthroid] 50 mcg PO DAILY 12/20/17 Losartan Potassium 50 mg PO DAILY 12/20/17 Ranitidine [Zantac] 150 mg PO BID 12/20/17 Fluticasone 0.05% [Flonase Nasal [place]] 1 spray NASAL BID #1 nasal.sry 05/19/18 Pseudoephedrine HCl [Sudafed] 30 mg PO Q6H PRN PRN #10 tablet 05/19/18 predniSONE tablet 40 mg PO DAILY@0800 #10 tablet 05/19/18 Following Prescrptions Were Given to Patient: Pseudoephedrine HCl [Sudafed] 30 mg PO Q6H PRN PRN #10 tablet PRN Reason: Congestion predniSONE tablet 40 mg PO DAILY@0800 #10 tablet Fluticasone 0.05% [Flonase Nasal [place]] 1 spray NASAL BID #1 nasal.sry Primary Care Physician: Pasha Webster MD [Primary Care Provider] - Please follow up with your Primary Care Physician in: 1 week. Disposition: Home Minutes spent on discharge:: 27 Patient Condition:: Stable Medical Necessity - Tobacco Use Smoking Status: Never smoker Meaningful Use Info Meaningful Use Diagnoses (Choose all that apply): None applicable Code Visit Inpatient E&M: 09602 Disch Hosp
--- NOTE | 2018-05-21 14:00 | CASEMGMT ---
GERONIMO RASMUSSEN Discharge Follow-Up Phone Call. Lacmarcela: 11 Strata: 3 Discharge Date: 05/19/18 Adm Dx: Acute Exac COPD Call placed to pt to inquire about how she has been feeling since she was discharged from the hospital. Pt states she is doing okay. States she is still coughing up some mucous and having some shortness of breath with activity but that it has improved from when she was in the hospital. States she has an appt with [facility] [facility] for Dr Webster tomorrow juan @ 7:40 AM. She states she was able to roller picker all of her prescriptions and is taking them as ordered. Also, states she is using her inhalers and aerosal tx's as needed. Denies having any questions or concerns about medications or discharge instructions. GERONIMO RASMUSSEN thanked pt for choosing [facility]. Kenisha BRAGA RN, CM
== END 2018-05-19 13:22 | disposition home or self-care (01) | DRG 202 ==
LOC: ED 05-17 01:41 → MS3 05-17 02:13
PROVIDERS: Internal Medicine; Admitting Provider Hospitalist; Emergency Provider Emergency Medicine; Family Provider Family Medicine; PCP Family Medicine; Visit Provider Hospitalist
DX: J20.5 Acute bronchitis due to respiratory syncytial virus (principal); J45.901 Unspecified asthma with (acute) exacerbation; F32.9 Major depressive disorder, single episode, unspecified; Z79.01 Long term (current) use of anticoagulants; I48.0 Paroxysmal atrial fibrillation; E87.6 Hypokalemia; R09.02 Hypoxemia; E03.9 Hypothyroidism, unspecified; E78.5 Hyperlipidemia, unspecified; I10 Essential (primary) hypertension; Z79.899 Other long term (current) drug therapy; B97.4 Respiratory syncytial virus as the cause of diseases classified elsewhere; E66.9 Obesity, unspecified; Z68.35 Body mass index [BMI] 35.0-35.9, adult
CPT/HCPCS: 36415; 71046; 80048; 80053; 82962; 83036; 83735; 83880; 84100; 84484; 85025; 85027; 85610; 87633; 87804; 94640; 94667; 94668; 97161; 97166; 97802; 99251; 99282; A4216; G0463

== ENCOUNTER → 2018-05-22 09:40 | Outpatient (CLI) | payer MEDICARE, OTHER, SELFPAY ==
[2018-05-17 02:44] VITALS: BMI 35.8
[2018-05-22 09:54] LABS: International Normalized Ratio 2.2; Prothrombin Time (Protime)PT. 24.7 SECONDS (11.7-14.9)
== END ==
PROVIDERS: Family Provider Family Medicine; PCP Family Medicine; Referring Provider Registered Nurse; Visit Provider Registered Nurse
DX: I48.91 Unspecified atrial fibrillation (principal)
CPT/HCPCS: 85610

== ENCOUNTER → 2018-06-04 15:41 | Outpatient (CLI) | payer MEDICARE, SELFPAY ==
[2018-05-17 02:44] VITALS: BMI 35.8
[2018-06-04 16:13] LABS: International Normalized Ratio 2.3; Prothrombin Time (Protime)PT. 25.8 SECONDS (11.7-14.9)
== END ==
PROVIDERS: Family Provider Family Medicine; PCP Family Medicine; Referring Provider Family Medicine; Visit Provider Family Medicine
DX: T14.8XXA Other injury of unspecified body region, initial encounter (principal); X58.XXXA Exposure to other specified factors, initial encounter; Y93.9 Activity, unspecified; Y92.9 Unspecified place or not applicable; Y99.9 Unspecified external cause status
CPT/HCPCS: 85610

== ENCOUNTER 2018-07-26 17:29 | Emergency (ER) | payer MEDICARE, OTHER, SELFPAY ==
[2018-05-17 02:44] VITALS: BMI 35.8
[2018-07-26 17:30] VITALS: BP 155/82; PULSE 82; RESP 18; TEMP 36.4; O2SAT 94; BMI 36.0
--- NOTE | 2018-07-26 17:44 | CT_ITS ---
STUDY: CT BRAIN WITHOUT CONTRAST REASON FOR EXAM: Female, 83 years old. Trauma RADIATION DOSAGE (If Supplied By Facility): CTDIvol = ( 44.99 ) mGy, DLP = ( 779.24 ) mGycm TECHNIQUE: Transaxial CT imaging of the brain was performed without administration of intravenous contrast material. Individualized dose optimization techniques were used for this CT. COMPARISON: Previous study of 04/15/2016 FINDINGS: Normal soft tissue structures. There is hyperostosis frontalis internus. There is mild cerebral atrophy with widening of the extra-axial spaces and ventricular dilatation. There are areas of decreased attenuation within the white matter tracts of the supratentorial brain, consistent with microvascular disease changes. Normal basal ganglia and thalami. Normal brainstem. Normal cerebellum. There is no intracranial hemorrhage. There are no findings of an acute ischemic infarction. There are postsurgical changes of the maxillary sinuses. There is inspissated secretion in the right maxillary sinus. There is mucosal thickening of the left and right maxillary sinuses, opacification of the frontal sinuses, opacification of the sphenoid sinuses, majority of the ethmoid air cells, and significant mucosal thickening of the nasal cavity. CT/Brain/Head without Contrast IMPRESSION: Chronic involutional changes of the brain. There is no intracranial hemorrhage or calvarial fracture. Severe chronic pansinusitis/rhinitis. Postsurgical changes of the maxillary sinuses. Electronically Signed: Cameron Luu MD at 19:33 EDT , Service support ,
--- NOTE | 2018-07-26 17:44 | RAD_ITS ---
STUDY: X-RAY - RIGHT KNEE REASON FOR EXAM: Female, 83 years old. Trauma, laceration TECHNIQUE: 4 view(s) of the knee. COMPARISON: None. FINDINGS: There are tricompartmental osteophytes. There is a moderate suprapatellar effusion. There is anterior soft tissue laceration. There is small air bubbles in the soft tissues. There are no radiopaque foreign bodies. There is mild lateral subluxation at the knee RAD/Knee 4 or More Views IMPRESSION: Tricompartmental osteoarthrosis Soft tissue edema, as soft tissue laceration Electronically Signed: Carlos Arellano, at 19:18 EDT Tel , Service support ,
--- NOTE | 2018-07-26 17:44 | CT_ITS ---
STUDY: CT CERVICAL SPINE WITHOUT CONTRAST REASON FOR EXAM: Female, 83 years old. Trauma RADIATION DOSAGE (If Supplied By Facility): CTDIvol = ( 25.86 ) mGy, DLP = ( 460.02 ) mGycm TECHNIQUE: High resolution transaxial imaging was performed without contrast material. Sagittal and coronal images were reconstructed. Individualized dose optimization techniques were used for this CT. COMPARISON: Prior study of 04/15/2016 FINDINGS: Normal craniovertebral junction. Normal anterior atlantoaxial articulation. Normal odontoid process. Normal cervical lordosis. Normal vertebral bodies and posterior osseous elements. C2-3: Normal endplates. Normal disc height and morphology. Normal central canal and intervertebral neuroforamina. C3-4: Normal endplates. Normal disc height and morphology. Normal central canal and intervertebral neuroforamina. C4-5: Normal endplates. Normal disc height and morphology. Normal central canal and intervertebral neuroforamina. C5-6: Normal endplates. Normal disc height and morphology. Normal central canal and intervertebral neuroforamina. C6-7: Normal endplates. Normal disc height and morphology. Normal central canal and intervertebral neuroforamina. C7-T1: Normal endplates. Normal disc height and morphology. Normal central canal and intervertebral neuroforamina. Normal visualized soft tissue structures. CT/Spine Cervical without Contras IMPRESSION: Normal unenhanced CT examination of the cervical spine. Electronically Signed: Cameron Luu MD at 19:19 EDT , Service support ,
[2018-07-26] MEDS: Diphth,Pertuss(Acell),Tet Vac 0.5 ML Vial IM (17:53)
--- NOTE | 2018-07-26 17:55 | ED.DCSUM_ITS ---
- ER Visit Summary Date of Service: 07/26/18 Chief Complaint: Fall History of Present Illness: The patient is a 83 F with a mechanical fall just prior to arrival. She is on Coumadin. He hit her right knee as well as part of her head. She has no weakness. She denies any neck pain. She has no other injury. No vomiting. Physical Examination: She appears well, she has a small contusion on her forehead. She has no C-spine tenderness she has mild paraspinal tenderness of her neck. She has normal upper extremity strength as well as lower extremity strength. She is ambulating well. She has a 7 cm laceration over her knee. Full range of motion of the joint without any joint involvement. Emergency Department Course and Treatment: 1% lidocaine, Shur-Clens, a total of 6 of the 4 nylon sutures were placed I will also put Steri-Strips and Claudy wrap it 60s over an extensor region. CT head C-spine as well as x-ray of the knee unremarkable. Because the laceration was somewhat dirty I will place the patient on antibiotics. INR is subtherapeutic. Patient was told to adjust Disposition: Discharge stable condition Impression: Fall Head injury Laceration knee This note was generated with [employer] dictation software. It may contain incorrect words, spelling, and punctuation that were not noted in review of the chart prior to signing ED Disposition - Plan for ED Patient: Disposition: Home or Assisted Living Instructions: ED Mechanical Fall, ED Laceration All Prescriptions: Cephalexin [Keflex] 500 mg PO [id number] #20 cap Referrals: Pasha Webster MD [Primary Care Provider] - 10-14 Days suture removal
[2018-07-26 18:10] LABS: International Normalized Ratio 1.7; Prothrombin Time (Protime)PT. 19.9 SECONDS (11.7-14.9)
[2018-07-26 18:37] VITALS: BP 149/72; PULSE 87; RESP 18
[2018-07-26] MEDS: Cephalexin 250 MG Capsule 500 MG PO (19:48)
[2018-07-26 19:51] VITALS: BP 153/86; PULSE 84; RESP 17; O2SAT 94
== END 2018-07-26 19:52 | disposition home or self-care (01) ==
PROVIDERS: Emergency Provider Emergency Medicine; Family Provider Family Medicine; PCP Family Medicine
DX: S00.83XA Contusion of other part of head, initial encounter (principal); S81.011A Laceration without foreign body, right knee, initial encounter; W19.XXXA Unspecified fall, initial encounter; Y93.9 Activity, unspecified; Y92.9 Unspecified place or not applicable; Y99.9 Unspecified external cause status; I10 Essential (primary) hypertension; I48.91 Unspecified atrial fibrillation; Z72.0 Tobacco use; Z79.01 Long term (current) use of anticoagulants; Z79.899 Other long term (current) drug therapy
CPT/HCPCS: 12002; 36415; 70450; 72125; 73564; 85610; 90715; 99283

== ENCOUNTER → 2018-08-11 15:15 | Outpatient (CLI) | payer MEDICARE, OTHER, SELFPAY ==
[2018-07-26 17:30] VITALS: BMI 36.0
[2018-08-11 16:41] LABS: Prothrombin Time (Protime)PT. 22.7 SECONDS (11.7-14.9)
== END ==
PROVIDERS: Family Provider Family Medicine; PCP Family Medicine; Referring Provider Family Medicine; Visit Provider Family Medicine
DX: I48.91 Unspecified atrial fibrillation (principal)
CPT/HCPCS: 85610

== ENCOUNTER → 2019-01-12 15:21 | Outpatient (CLI) | payer MEDICARE, OTHER, SELFPAY ==
[2019-01-07 13:41] VITALS: BMI 34.6
== END ==
PROVIDERS: Family Provider Family Medicine; PCP Family Medicine; Referring Provider Otolaryngology Otolaryngology/Facial Plastic Surgery; Visit Provider Otolaryngology Otolaryngology/Facial Plastic Surgery
DX: J32.9 Chronic sinusitis, unspecified (principal)
CPT/HCPCS: 87070; 87077; 87205

== ENCOUNTER → 2019-05-03 12:32 | Outpatient (CLI) | payer MEDICARE, OTHER, SELFPAY ==
[2019-01-07 13:41] VITALS: BMI 34.6
[2019-05-03 12:58] LABS: International Normalized Ratio 1.6; Prothrombin Time (Protime)PT. 18.5 SECONDS (11.7-14.9)
== END ==
PROVIDERS: Family Provider Family Medicine; PCP Family Medicine; Referring Provider Family Medicine; Visit Provider Family Medicine
DX: I48.20 Chronic atrial fibrillation, unspecified (principal)
CPT/HCPCS: 85610

== ENCOUNTER → 2019-05-11 12:01 | Outpatient (CLI) | payer MEDICARE, OTHER, SELFPAY ==
[2019-01-07 13:41] VITALS: BMI 34.6
[2019-05-11 12:17] LABS: International Normalized Ratio 1.9; Prothrombin Time (Protime)PT. 22.1 SECONDS (11.7-14.9)
== END ==
PROVIDERS: Family Provider Family Medicine; PCP Family Medicine; Referring Provider Family Medicine; Visit Provider Family Medicine
DX: I48.20 Chronic atrial fibrillation, unspecified (principal)
CPT/HCPCS: 85610

== ENCOUNTER 2019-06-05 14:34 | Emergency (ER) | payer MEDICARE, OTHER, SELFPAY ==
[2019-06-01 13:29] VITALS: BMI 34.6
[2019-06-05 14:36] VITALS: BP 166/76; PULSE 55; RESP 16; TEMP 36.7; O2SAT 95; BMI 33.3
--- NOTE | 2019-06-05 14:37 | RAD_ITS ---
STUDY: X-RAY CHEST REASON FOR EXAM: Female, 84 years old. chest pain TECHNIQUE: AP COMPARISON: 05/16/2018 FINDINGS: The lungs are clear and expanded. There is no demonstrated pleural abnormality. Normal size heart. Normal mediastinum and augusto. Normal visualized pulmonary arteries. There is atherosclerotic tortuosity of the aortic arch and descending thoracic aorta. Normal visualized thoracic spine. Operative changes of the proximal right humerus partially visualized. There is no demonstrated abnormality of the visualized soft tissue structures of the upper abdomen. RAD/Chest 1 View (Portable) IMPRESSION: Stable, nonacute portable x-ray examination of the chest. Electronically Signed: Gordo Moya MD (Brooks) at 14:53 EST , Service support ,
--- NOTE | 2019-06-05 14:37 | EKG12_ITS ---
Test Reason : WEAKNESS Blood Pressure : / mmHG Vent. Rate : 059 BPM Atrial Rate : 059 BPM P-R Int : 096 ms QRS Dur : 076 ms QT Int : 412 ms P-R-T Axes : 000 002 052 degrees QTc Int : 407 ms Sinus bradycardia with short IA Otherwise normal ECG Confirmed by QIANA MARTINEZ, CHANTALE ([id number]), rewrite editor JEFFY VICENTE ([id number]) on 06/07/2019 12:24:28 PM Referred By: FACUNDO Confirmed By:CHANTALE KIRAN MD
[2019-06-05 14:55] LABS: Absolute Lymphocyte Count 1.53 X10^3/uL (0.83-4.51); Absolute Neutrophil Count 9.8 X10^3/uL (2.0-7.7); Basophil# 0.03 X10^3/uL; Basophil% 0.2 % (0-1); Eosinophil# 0.01 X10^3/uL; Eosinophils% 0.1 % (0-5); Hematocrit 42.9 % (37-47); Hemoglobin 13.5 g/dL (12.0-15.0); Lymphocyte # 1.53 X10^3/ul (4.0); Lymphocyte % 12.7 % (19-41); Mean Corp Hgb Conc 31.5 g/dL (32-36); Mean Corpuscular Hgb 27.6 pg (27.0-32.0); Mean Corpuscular Volume 87.6 fL (81-99); Mean Platelet Vol. 9.3 fl (6.2-12.0); Monocyte# 0.62 X10^3/uL; Monocyte% 5.1 % (0-10); NRBC Flagged by Analyzer 0 % (0-5); Neutrophil # 9.81 X10^3/uL (2.7-7.7); Neutrophil % 81.3 % (47-70); Platelet Count 243 K/mm3 (150-450); RBC Distribution Width CV 14.9 % (11.6-14.6); White Blood Count 12.1 K/mm3 (4.4-11.0)
[2019-06-05 14:56] VITALS: O2SAT 98
--- NOTE | 2019-06-05 14:58 | CT_ITS ---
STUDY: CT ABDOMEN AND PELVIS WITHOUT CONTRAST REASON FOR EXAM: Female, 84 years old. WEAKNESS -- HX-HTN,AFIB,ASTHMA -- SURG-GB.TUBAL RADIATION DOSAGE (If Supplied By Facility): CTDIvol = ( 20.45 ) mGy, DLP = ( 970.70 ) mGycm TECHNIQUE: Transaxial images were obtained from the dome of the diaphragm to the symphysis pubis without oral contrast, and without intravenous contrast. Sagittal and coronal images were reconstructed. Individualized dose optimization techniques were used for this CT. COMPARISON: 06/13/2015 FINDINGS: The visualized lung bases are unremarkable. The visualized portions of the heart are within normal limits. There is decreased attenuation of the liver consistent with steatosis. There are surgical clips in the gallbladder fossa consistent with a prior cholecystectomy. Normal spleen. Normal pancreas. Normal bilateral adrenal glands. Normal right kidney. Left renal cysts are stable. There is a small hiatal hernia. Normal small intestine. There are multiple colonic diverticula consistent with diverticulosis. The appendix is visualized and appears normal. There is diffuse atherosclerotic calcification of the abdominal aorta, without a demonstrated aneurysm. Normal inferior vena cava. Normal retroperitoneum. Normal urinary bladder. There is atrophy of the uterus. Normal abdominal wall. There are diffuse degenerative changes of the visualized lumbar spine. CT/Abdomen/Pelvis without Cont IMPRESSION: 1. No hydronephrosis or urinary tract calcifications. No acute inflammatory process or bowel obstruction. 2. Stable chronic changes, as above. Electronically Signed: Gordo Moya MD (Brooks) at 16:18 EST , Service support ,
--- NOTE | 2019-06-05 15:00 | ED.VIS.GEN ---
History of Present Illness Chief Complaint: Weakness Informant: Patient Onset: Days Maximum Severity: Mild Narrative: Patient reports for the last few days in a nonspecific fashion she is felt fatigued and has generalized sense of fatigue she also reports that she feels a sense of unspecified fear nonspecific intermittent abdominal discomfort or vague abdominal sensation with all of the above. She indicates this all began when she was scheduled for sinus surgery to remove a polyp left nostril she is on amiodarone and Coumadin related to A. fib but she had stopped her Coumadin for 2 days before the procedure when she was in for the procedure her INR was still about 1. She indicates her surgeons felt and this would cancel the surgery because her INR was still high that upset her quite a bit and she is then developed a sense of generalized fatigue and intermittent sense of fear. She is not homicidal or suicide she is not at risk in any way of any deterioration in her status she is with her there is no abuse She indicates that she has had these sensations before related to anxiety, she indicates her A. fib nasal condition and all other health conditions have been stable, her bowel and bladder habits are normal she is eating and drinking well, she is able to go about all of her daily activities without difficulty Past Medical History - Allergies and Home Meds Allergies/Adverse Reactions: Allergies diclofenac [From Cataflam] Allergy (Severe, Verified 06/05/19 14:36) SOB aspirin Allergy (Verified 06/05/19 14:36) Unknown NSAIDS (Non-Steroidal Anti-Inflamma Allergy (Verified 06/05/19 14:36) Unknown flecainide Adverse Reaction (Unknown, Verified 06/05/19 14:36) Unknown sotalol Adverse Reaction (Unknown, Verified 06/05/19 14:36) Unknown Primary Care Physician: Pasha Webster MD [Primary Care Provider] - Past Medical History: - - A. fib and as above Surgical History: cholecystectomy, - - Right arm surgery with plate placed. Smoking Status: Never smoker - Family History Maternal Family History: Family History (Last Reviewed 01/07/19 @ 13:45 by Alycia Gasca) Mother Diabetes CVA (cerebral vascular accident) Hypertension Brother Hypertension Diabetes Sister Diabetes Family History: Reports: No pertinent history Review of Systems General: Reports: - - Realized fear and anxiety and fatigue. Denies: Chills, Fever, Sweats Eyes: Denies: Visual changes - bilaterally, Diplopia ENT: Denies: Rhinorrhea, Sore throat Cardiovascular: Denies: Chest pain, Palpitations Respiratory: Denies: Dyspnea, Cough, Dyspnea on exertion Gastrointestinal: Reports: Abdominal pain. Denies: Nausea, Vomiting, Diarrhea, Melena, Hematochezia Genitourinary: Denies: Dysuria, Hematuria, Frequency Musculoskeletal: Denies: Back pain, Extremity Pain Skin: Denies: Rash, Wounds Neurological: Denies: Headache, Weakness, Numbness Physical Exam Vital Signs/Narrative: Vital Signs Temp Pulse Resp BP Pulse Ox 06/05/19 14:56 98 06/05/19 14:36 98.1 F 55 L 16 166/76 H 95 General: Well nourished, Well developed, No Acute Distress Head: Normocephalic, Atraumatic Eyes: Perrl, EOMI ENT: Moist mucous membranes, No rhinorrhea Neck: Supple, Nontender Cardiovascular: Regular rate, Regular rhythm, No murmurs Respiratory: No distress, CTA bilaterally, Chest nontender Abdomen: Soft, Nontender, Nondistended, Normal bowel sounds Back: Nontender, Normal Inspection Extremities: Nontender, No edema Skin: Normal color, No rash Neurological: Alert, Oriented x3, Cranial nerves II-XII grossly intact, Normal Strength, Normal Sensation Psychological: Normal affect, Normal Mood Diagnostic/Tx/Re-eval - Medical Decision Making Patient clinically is in no distress she is resting comfortably in the bed her vital signs are normal her EKG shows a sinus rhythm rate of about 60 no acute injury pattern appreciated her abdominal exam is unremarkable it is there is obesity but no rebound guarding organomegaly she will just grab her abdomen and report feeling uneasy given all the above screening labs ED evaluation Patient screening ED evaluation including labs chest x-ray abdominal CT are all unremarkable she does report some reevaluation is resting comfortably in bed All the test results differential inpatient versus outpatient management she is comfortable discharge home to follow-up with her outpatient providers for further management of all the above Home stable Final impression Specific sense of generalized weakness, anxiety ED Disposition - Plan for ED Patient: Diagnosis: Generalized weakness Instructions: WEAKNESS, Unk Cause Referrals: Pasha Webster MD [Primary Care Provider] -
[2019-06-05] MEDS: LORazepam 1 MG Tablet PO (15:08)
[2019-06-05 15:13] LABS: Anion Gap 6 (5-15); BUN 25 mg/dL (7-18); BUN/Creat Ratio 20.3 RATIO (10-20); Calcium,Total 9.1 mg/dL (8.5-10.1); Chloride 103 mmol/L (98-107); Creatinine, Serum 1.23 mg/dL (0.55-1.02); EST Glomerular Filtration Rate 44 mL/min (>60); Est Glom Filt Rate - Afr Amer 54 mL/min (>60); Estimated Creatinine Clearance 31.18 ml/min; Glucose 146 mg/dL (74-106); Potassium 4.9 mmol/L (3.5-5.1); Sodium Level 137 mmol/L (136-145)
[2019-06-05 15:27] LABS: International Normalized Ratio 2.4; Prothrombin Time (Protime)PT. 26.1 SECONDS (11.7-14.9)
[2019-06-05 15:28] LABS: BNP,B-Type NATRIURETIC PEPTIDE 88.7 pg/mL (0-100)
[2019-06-05 16:17] LABS: Bacteria 0 SEEN /hpf (None Seen); Mucous, Urine 0 SEEN /hpf (<or=2+); Red Blood Cells-Urine 0 SEEN /hpf (0-5); Squamous Epithelial Cells - UA 0 SEEN /hpf (5-10); White Blood Cells 0 SEEN /hpf (0-5)
[2019-06-05 16:18] LABS: Color, Urine Yellow (Yellow); Glucose, Dipstick Normal (Normal); Ketone-Dipstick Negative (Negative); Leukocyte Esterase-Dipstick Negative /ul (Negative); Nitrite-Dipstick Negative (Negative); Occult Blood-Urine Negative /ul (Negative); Protein-Dipstick Negative (Negative); Urine Bilirubin Dipstick Negative (Negative); Urine Clarity Clear (Clear); Urine Urobilinogen Normal (Normal)
[2019-06-05 16:49] VITALS: BP 140/85; PULSE 65; RESP 18; O2SAT 97
== END 2019-06-05 16:54 | disposition home or self-care (01) ==
LOC: ED 15:02
PROVIDERS: Emergency Provider Emergency Medicine; PCP Family Medicine
DX: R53.1 Weakness (principal); F41.9 Anxiety disorder, unspecified; R53.83 Other fatigue; R10.9 Unspecified abdominal pain; I48.91 Unspecified atrial fibrillation; Z79.01 Long term (current) use of anticoagulants; Z79.899 Other long term (current) drug therapy; Z88.6 Allergy status to analgesic agent; Z90.49 Acquired absence of other specified parts of digestive tract
CPT/HCPCS: 71045; 74176; 80048; 81001; 83880; 84484; 85025; 85610; 93005; 99284

== ENCOUNTER 2019-09-26 14:46 | Emergency (ER) | payer MEDICARE, OTHER, SELFPAY ==
[2019-07-02 14:57] VITALS: BMI 36.2
[2019-09-26 14:47] VITALS: BP 114/83; PULSE 51; RESP 16; TEMP 36.3; O2SAT 96; BMI 36.7
--- NOTE | 2019-09-26 15:30 | EKG12_ITS ---
Test Reason : Blood Pressure : / mmHG Vent. Rate : 066 BPM Atrial Rate : 066 BPM P-R Int : 192 ms QRS Dur : 088 ms QT Int : 436 ms P-R-T Axes : 063 001 067 degrees QTc Int : 457 ms Normal sinus rhythm Nonspecific ST and T wave abnormality Abnormal ECG Confirmed by QIANA MARTINEZ, CHANTALE ([id number]), editor index ARMAND MALDONADO ([id number]) on 09/27/2019 1:06:37 PM Referred By: JOANA Confirmed By:CHANTALE KIRAN MD
[2019-09-26 15:58] VITALS: PULSE 67; RESP 18; O2SAT 96
[2019-09-26] MEDS: LORazepam 0.5 MG Tablet PO (16:02)
[2019-09-26 16:03] VITALS: BP 149/62
[2019-09-26 16:12] LABS: Absolute Lymphocyte Count 1.22 X10^3/uL (0.83-4.51); Basophil# 0.02 X10^3/uL; Basophil% 0.3 % (0-1); Eosinophil# 0.21 X10^3/uL; Hematocrit 40.5 % (37-47); Lymphocyte # 1.22 X10^3/ul (4.0); Lymphocyte % 17.5 % (19-41); Mean Corp Hgb Conc 32.1 g/dL (32-36); Mean Corpuscular Hgb 28.7 pg (27.0-32.0); Mean Corpuscular Volume 89.4 fL (81-99); Mean Platelet Vol. 10.1 fl (6.2-12.0); Monocyte# 0.54 X10^3/uL; Monocyte% 7.7 % (0-10); NRBC Flagged by Analyzer 0 % (0-5); Neutrophil # 4.97 X10^3/uL (2.7-7.7); Neutrophil % 71.1 % (47-70); Platelet Count 153 K/mm3 (150-450); RBC Distribution Width CV 14.8 % (11.6-14.6); RBC Distribution Width SD 48.4 fl (35.1-43.9); Red Blood Count 4.53 M/mm3 (4.2-5.4)
[2019-09-26 16:22] LABS: ALB/GLOB Ratio 1.1 RATIO (0.9-2.4); AST(SGOT) 46 U/L (15-37); Alanine Aminotransfer ALT/SGPT 48 U/L (13-56); Albumin, Serum 3.9 g/dL (3.2-5.0); Alkaline Phosphatase 78 U/L (45-117); Anion Gap 6 (5-15); BUN 16 mg/dL (7-18); BUN/Creat Ratio 12.4 RATIO (10-20); Chloride 107 mmol/L (98-107); Creatinine, Serum 1.29 mg/dL (0.55-1.02); EST Glomerular Filtration Rate 42 mL/min (>60); Est Glom Filt Rate - Afr Amer 51 mL/min (>60); Estimated Creatinine Clearance 29.73 ml/min; Globulin 3.4 g/dL (2.2-4.2); Glucose 127 mg/dL (74-106); Potassium 4.1 mmol/L (3.5-5.1); Protein, Total 7.3 g/dL (6.4-8.2); Sodium Level 140 mmol/L (136-145)
[2019-09-26 16:59] LABS: Mucous, Urine 0 SEEN /hpf (<or=2+); Red Blood Cells-Urine 0 SEEN /hpf (0-5); White Blood Cells 0 SEEN /hpf (0-5)
[2019-09-26 17:00] LABS: Color, Urine Yellow (Yellow); Glucose, Dipstick Normal (Normal); Ketone-Dipstick Negative (Negative); Leukocyte Esterase-Dipstick Negative /ul (Negative); Nitrite-Dipstick Negative (Negative); Occult Blood-Urine Negative /ul (Negative); Protein-Dipstick Negative (Negative); Urine Bilirubin Dipstick Negative (Negative); Urine Clarity Sl. Cloudy (Clear); Urine Urobilinogen Normal (Normal)
[2019-09-26 17:07] LABS: Bacteria RARE /hpf (None Seen); Squamous Epithelial Cells - UA 0-5 SEEN /hpf (5-10)
[2019-09-26 17:23] VITALS: BP 158/66; PULSE 64; RESP 18; O2SAT 97
--- NOTE | 2019-09-26 17:43 | ED.DCSUM_ITS ---
History of Present Illness Chief Complaint: Anxiety Informant: Patient Narrative: Patient states she is having anxiety, she has had this for years. She has been on BuSpar for 1 or 2 years because of that, low-dose 5 mg daily. That has not changed lately. For the past week she has felt excessively fatigued and tired. The only other symptoms that she has is feeling like there is a knot in her stomach, she points to her epigastrium. She has been able to eat and drink without any changes or difficulty. She called the nurses line today, and somebody checked her heart rate and it was 50 so they recommended that she come to the hospital because of her symptoms and that. She denies any l ightheadedness or focal neurologic symptoms. - Past Medical History (1) Benign essential HTN Status: Chronic (2) GERD (gastroesophageal reflux disease) Status: Chronic (3) Hypothyroidism Status: Chronic (4) Obesity Status: Chronic (5) Paroxysmal a-fib Status: Chronic Comment: Anticoagulated with Coumadin Antiarrhythmic therapy with dofetilide (6) History of radiofrequency ablation procedure for cardiac arrhythmia Status: Resolved Comment: ablation atrial fib/flutter 07/09/06 and SVT 09/12/12 (7) Asthma Status: Chronic Comment: Mild intermittent Past Medical History - Allergies and Home Meds Allergies/Adverse Reactions: Allergies diclofenac [From Cataflam] Allergy (Severe, Verified 09/26/19 14:47) SOB aspirin Allergy (Verified 09/26/19 14:47) Unknown NSAIDS (Non-Steroidal Anti-Inflamma Allergy (Verified 09/26/19 14:47) Unknown flecainide Adverse Reaction (Unknown, Verified 09/26/19 14:47) Unknown sotalol Adverse Reaction (Unknown, Verified 09/26/19 14:47) Unknown Primary Care Physician: Pasha Webster MD [Primary Care Provider] - Surgical History: cholecystectomy, - - Right arm surgery with plate placed. Lives: Alone Smoking Status: Never smoker - Family History Maternal Family History: Family History (Last Reviewed 07/02/19 @ 15:38 by Schuyler Floyd NP-C) Mother Diabetes CVA (cerebral vascular accident) Hypertension Brother Hypertension Diabetes Sister Diabetes Family History: Reports: No pertinent history Review of Systems General: Reports: Malaise. Denies: Chills, Fever, Sweats Eyes: Denies: Visual changes - bilaterally, Diplopia ENT: Denies: Bilateral ear pain, Rhinorrhea, Sore throat Cardiovascular: Denies: Chest pain, Palpitations Respiratory: Denies: Dyspnea, Cough, Dyspnea on exertion Gastrointestinal: Reports: Abdominal pain - See HPI, Nausea - Occasional. Denies: Vomiting, Diarrhea, Melena, Hematochezia Genitourinary: Denies: Dysuria, Hematuria, Frequency Musculoskeletal: Denies: Neck pain, Back pain, Swelling, Extremity Pain Skin: Denies: Rash, Wounds Neurological: Denies: Headache, Weakness, Numbness Psych: Reports: Anxiety. Denies: Suicidal thoughts Physical Exam Vital Signs/Narrative: Vital Signs Temp Pulse Resp BP Pulse Ox 09/26/19 17:23 64 18 158/66 H 97 09/26/19 16:03 149/62 H 09/26/19 15:58 67 18 96 09/26/19 14:47 97.4 F L 51 L 16 114/83 H 96 Inital Vital Signs reviewed: Yes General: Well nourished, Well developed, Obese, No Acute Distress Head: Normocephalic, Atraumatic Eyes: Perrl, EOMI ENT: Moist mucous membranes, No rhinorrhea, TM's clear Neck: Supple, Nontender, No lymphadenopathy Cardiovascular: Regular rate, Regular rhythm, No murmurs Respiratory: No distress, CTA bilaterally, Chest nontender Abdomen: Soft, Nontender, Nondistended, Normal bowel sounds Back: Nontender, Normal Inspection Extremities: Nontender, No edema. Negative for: Calf Tenderness Skin: Normal color, No rash, No Trauma Neurological: Alert, Oriented x3, Cranial nerves II-XII grossly intact, Normal Strength, Normal Sensation Psychological: Normal affect, Normal Mood Diagnostic/Tx/Re-eval Laboratory Results 09/26/19 09/26/19 09/26/19 15:50 15:50 16:50 WBC 7.0 RBC 4.53 Hgb 13.0 Hct 40.5 MCV 89.4 MCH 28.7 MCHC 32.1 RDW Std Deviation 48.4 H RDW Coeff of Xochilt 14.8 H Plt Count 153 MPV 10.1 Immature Gran % (Auto) 0.400 Neut % (Auto) 71.1 H Lymph % (Auto) 17.5 L [place] % (Auto) 7.7 Eos % (Auto) 3.0 Baso % (Auto) 0.3 Absolute Neuts (auto) 5.0 Absolute Lymphs (auto) 1.22 Nucleated RBC % 0 Sodium 140 Potassium 4.1 Chloride 107 Carbon Dioxide 27.0 Anion Gap 6 BUN 16 Creatinine 1.29 H Estim Creat Clear Calc 29.73 Est GFR (MDRD) Af Amer 51 L Est GFR (MDRD) Non-Af 42 L BUN/Creatinine Ratio 12.4 Glucose 127 H Calcium 9.0 Total Bilirubin 0.60 AST 46 H ALT 48 Alkaline Phosphatase 78 Troponin I < 0.015 Total Protein 7.3 Albumin 3.9 Globulin 3.4 Albumin/Globulin Ratio 1.1 Urine Color Yellow Urine Clarity Sl. Cloudy Urine pH 7.0 Ur Specific [place] 1.010 Urine Protein Negative Urine Glucose (UA) Normal Urine Ketones Negative Urine Occult Blood Negative Urine Nitrite Negative Urine Bilirubin Negative Urine Urobilinogen Normal Ur Leukocyte Esterase Negative Urine RBC 0 SEEN Urine WBC 0 SEEN Ur Squamous Epith Cells 0-5 SEEN Urine Bacteria RARE Urine Mucus 0 SEEN - Rhythm Strip Rhythm Strip: Sinus Rhythm Rate: 66 Ectopy: None - EKG Initial EKG Interpretation: Sinus Rhythm, No Acute Injury Pattern - Normal EKG. Normal axis. - Medical Decision Making Patient's heart rate remained in the mid 60s during most of her stay here. Her work-up as above is unremarkable. No sign of urinary tract infection or electrolyte disorder. She was given Ativan 0.5 mg after we discussed thoroughly benzodiazepines in the risk. She was agreeable to trying that, she does not remember having them in the past. On reevaluation she feels much better with regards to all of her symptoms. She does not want to be addicted to benzodiazepines either, I offered a prescription for a few and she was thankful for that, advised to follow-up with her doctor after the weekend for further management. ED Disposition - Plan for ED Patient: Disposition: Home or Assisted Living Diagnosis: Anxiety, Fatigue Instructions: ED Panic Attack Prescriptions: Lorazepam [Ativan] 0.5 mg PO BID PRN #8 tab PRN Reason: Anxiety Prescription Printed Referrals: Pasha Webster MD [Primary Care Provider] - 3-5 Days
[2019-09-26 17:50] VITALS: BP 154/69; PULSE 63; RESP 18; O2SAT 96
== END 2019-09-26 18:09 | disposition home or self-care (01) ==
PROVIDERS: Emergency Provider Emergency Medicine; PCP Family Medicine
DX: F41.9 Anxiety disorder, unspecified (principal); R53.83 Other fatigue; I48.0 Paroxysmal atrial fibrillation; I10 Essential (primary) hypertension; E03.9 Hypothyroidism, unspecified; J45.20 Mild intermittent asthma, uncomplicated; K21.9 Gastro-esophageal reflux disease without esophagitis; E66.9 Obesity, unspecified; Z79.01 Long term (current) use of anticoagulants; Z79.899 Other long term (current) drug therapy; Z88.6 Allergy status to analgesic agent; Z90.49 Acquired absence of other specified parts of digestive tract
CPT/HCPCS: 80053; 81001; 84484; 85025; 93005; 99285; A4216

== ENCOUNTER 2019-12-24 22:09 | Emergency (ER) | payer MEDICARE, OTHER, SELFPAY ==
[2019-12-24 22:09] VITALS: BP 158/102; PULSE 50; RESP 18; TEMP 36.4; O2SAT 96; BMI 33.3
--- NOTE | 2019-12-24 22:40 | ED.DCSUM_ITS ---
History of Present Illness Chief Complaint: Constipation Narrative: Patient is an 84-year-old female who presents with nausea constipation and abdominal discomfort. She complains about 1 week of nausea without vomiting. She has been constipated for 2 days. She took a laxative today and did actually have a bowel movement a short time ago. No vomiting. She initially denied abdominal pain but then later stated she does have some burning epigastric discomfort. She denies fever cough difficulty breathing chest pain. No urinary symptoms. Past Medical History - Allergies and Home Meds Allergies/Adverse Reactions: Allergies diclofenac [From Cataflam] Allergy (Severe, Verified 12/24/19 22:10) SOB aspirin Allergy (Verified 12/24/19 22:10) Unknown NSAIDS (Non-Steroidal Anti-Inflamma Allergy (Verified 12/24/19 22:10) Unknown flecainide Adverse Reaction (Unknown, Verified 12/24/19 22:10) Unknown sotalol Adverse Reaction (Unknown, Verified 12/24/19 22:10) Unknown Primary Care Physician: Pasha Webster MD [Primary Care Provider] - Past Medical History: - - Hypertension, hyperlipidemia, cholecystectomy, tubal ligation Surgical History: cholecystectomy, - - Right arm surgery with plate placed. Smoking Status: Never smoker - Family History Maternal Family History: Family History (Last Reviewed 07/02/19 @ 15:38 by Schuyler Floyd NP-C) Mother Diabetes CVA (cerebral vascular accident) Hypertension Brother Hypertension Diabetes Sister Diabetes Family History: Reports: No pertinent history Review of Systems All systems negative except as indicated General: Denies: Fever Eyes: Denies: Visual changes - bilaterally Cardiovascular: Denies: Chest pain Respiratory: Denies: Dyspnea, Cough Gastrointestinal: Reports: Abdominal pain, Nausea, Constipation. Denies: Vomiting, Diarrhea Genitourinary: Denies: Dysuria Skin: Denies: Rash Neurological: Denies: Headache Hematologic: Denies: Easy bruising Allergy: Denies: Uticaria Physical Exam Vital Signs/Narrative: Vital Signs Temp Pulse Resp BP Pulse Ox 12/24/19 22:09 97.6 F L 50 L 18 158/102 H 96 Inital Vital Signs reviewed: Yes General: Well nourished, Obese Head: Normocephalic Eyes: EOMI ENT: Moist mucous membranes Neck: Supple Cardiovascular: Regular rate, Regular rhythm Respiratory: No distress, CTA bilaterally Abdomen: Soft, Nondistended, Tender - Mild epigastric pain on palpation no guarding no rebound nondistended Skin: Normal color Neurological: Alert Psychological: Normal affect Diagnostic/Tx/Re-eval Impressions Abdomen/Pelvis CT 12/25/19 22:40 IMPRESSION: Colon diverticulosis. Electronically Signed: Sumit Covarrubias, at 0:49 EDT Tel , Service support , 12/25/19 22:40 Abdomen/Pelvis without Cont [CT] Stat Laboratory Results 12/24/19 12/24/19 12/25/19 23:10 23:10 01:00 WBC 11.5 H RBC 4.34 Hgb 12.1 Hct 39.2 MCV 90.3 MCH 27.9 MCHC 30.9 L RDW Std Deviation 48.9 H RDW Coeff of Xochilt 14.6 Plt Count 220 MPV 9.9 Immature Gran % (Auto) 0.500 Neut % (Auto) 65.4 Lymph % (Auto) 15.3 L [place] % (Auto) 8.2 Eos % (Auto) 10.3 H Baso % (Auto) 0.3 Absolute Neuts (auto) 7.5 Absolute Lymphs (auto) 1.77 Nucleated RBC % 0 Sodium 140 Potassium 3.6 Chloride 102 Carbon Dioxide 30.0 Anion Gap 8 BUN 22 H Creatinine 1.30 H Estim Creat Clear Calc 29.50 Est GFR (MDRD) Af Amer 50 L Est GFR (MDRD) Non-Af 42 L BUN/Creatinine Ratio 16.9 Glucose 125 H Calcium 9.2 Total Bilirubin 0.50 AST 67 H ALT 83 H Alkaline Phosphatase 115 Total Protein 7.4 Albumin 3.9 Globulin 3.5 Albumin/Globulin Ratio 1.1 Lipase 158 Urine Color Yellow Urine Clarity Clear Urine pH 6.5 Ur Specific [place] 1.010 Urine Protein Negative Urine Glucose (UA) Normal Urine Ketones Negative Urine Occult Blood Negative Urine Nitrite Negative Urine Bilirubin Negative Urine Urobilinogen Normal Ur Leukocyte Esterase 25 H Urine RBC 0 SEEN Urine WBC 0 SEEN Ur Squamous Epith Cells 0-5 SEEN Urine Bacteria 0 SEEN Urine Mucus 0 SEEN - Medical Decision Making Patient was given IV fluids and antiemetics. Labs are unremarkable as above. CT imaging shows no acute findings. Patient had constipation but did have a bowel movement after laxative. She does complain of nausea but has no vomiting. She does not appear to have any acute life-threatening or surgical pathology. She was advised to follow-up with her primary care physician or to arrange for return for any new or worsening symptoms. ED Disposition - Plan for ED Patient: Disposition: Home or Assisted Living Diagnosis: Constipation, Nausea Instructions: ED Constipation Referrals: Pasha Webtser MD [Primary Care Provider] -
[2019-12-24] MEDS: 0.9% Normal Saline 1,000 ML 1000 ML IV (23:13)
[2019-12-24] MEDS: Ondansetron 4 MG/2 ML Vial IV (23:14)
[2019-12-24 23:17] LABS: Absolute Lymphocyte Count 1.77 X10^3/uL (0.83-4.51); Absolute Neutrophil Count 7.5 X10^3/uL (2.0-7.7); Basophil# 0.04 X10^3/uL; Basophil% 0.3 % (0-1); Eosinophil# 1.19 X10^3/uL; Eosinophils% 10.3 % (0-5); Hematocrit 39.2 % (37-47); Hemoglobin 12.1 g/dL (12.0-15.0); Lymphocyte # 1.77 X10^3/ul (4.0); Lymphocyte % 15.3 % (19-41); Mean Corp Hgb Conc 30.9 g/dL (32-36); Mean Corpuscular Hgb 27.9 pg (27.0-32.0); Mean Corpuscular Volume 90.3 fL (81-99); Mean Platelet Vol. 9.9 fl (6.2-12.0); Monocyte# 0.95 X10^3/uL; Monocyte% 8.2 % (0-10); NRBC Flagged by Analyzer 0 % (0-5); Neutrophil # 7.53 X10^3/uL (2.7-7.7); Neutrophil % 65.4 % (47-70); Platelet Count 220 K/mm3 (150-450); RBC Distribution Width CV 14.6 % (11.6-14.6); RBC Distribution Width SD 48.9 fl (35.1-43.9); Red Blood Count 4.34 M/mm3 (4.2-5.4); White Blood Count 11.5 K/mm3 (4.4-11.0)
[2019-12-24 23:35] LABS: ALB/GLOB Ratio 1.1 RATIO (0.9-2.4); AST(SGOT) 67 U/L (15-37); Alanine Aminotransfer ALT/SGPT 83 U/L (13-56); Albumin, Serum 3.9 g/dL (3.2-5.0); Alkaline Phosphatase 115 U/L (45-117); Anion Gap 8 (5-15); BUN 22 mg/dL (7-18); BUN/Creat Ratio 16.9 RATIO (10-20); Calcium,Total 9.2 mg/dL (8.5-10.1); Chloride 102 mmol/L (98-107); EST Glomerular Filtration Rate 42 mL/min (>60); Est Glom Filt Rate - Afr Amer 50 mL/min (>60); Globulin 3.5 g/dL (2.2-4.2); Glucose 125 mg/dL (74-106); Lipase 158 U/L (73-393); Potassium 3.6 mmol/L (3.5-5.1); Protein, Total 7.4 g/dL (6.4-8.2); Sodium Level 140 mmol/L (136-145)
[2019-12-25 01:07] LABS: Bacteria 0 SEEN /hpf (None Seen); Mucous, Urine 0 SEEN /hpf (<or=2+); Red Blood Cells-Urine 0 SEEN /hpf (0-5); White Blood Cells 0 SEEN /hpf (0-5)
[2019-12-25 01:09] LABS: Color, Urine Yellow (Yellow); Glucose, Dipstick Normal (Normal); Ketone-Dipstick Negative (Negative); Leukocyte Esterase-Dipstick 25 /ul (Negative); Nitrite-Dipstick Negative (Negative); Occult Blood-Urine Negative /ul (Negative); Protein-Dipstick Negative (Negative); Urine Bilirubin Dipstick Negative (Negative); Urine Clarity Clear (Clear); Urine Urobilinogen Normal (Normal); Urine pH 6.5 (5.0 - 8.0)
[2019-12-25 01:15] LABS: Squamous Epithelial Cells - UA 0-5 SEEN /hpf (5-10)
[2019-12-25 01:48] VITALS: PULSE 71; RESP 16; O2SAT 95
--- NOTE | 2019-12-25 22:40 | CT_ITS ---
STUDY: CT ABDOMEN AND PELVIS WITHOUT CONTRAST REASON FOR EXAM: Female, 84 years old. NAUSEA X 1WEEK BUT WORSE TODAY AND CONSTIPATION X 2 DAYS -- HX:ASTHMA,HTN,GERD -- SURGERY:TUBAL,CARDIAC ABLATION,CHOLECYSTECTOMY RADIATION DOSAGE (If Supplied By Facility): CTDIvol = ( 21.43 ) mGy, DLP = ( 995.94 ) mGycm TECHNIQUE: Transaxial images were obtained from the dome of the diaphragm to the symphysis pubis without oral contrast, and without intravenous contrast. Sagittal and coronal images were reconstructed. Individualized dose optimization techniques were used for this CT. COMPARISON: None. FINDINGS: The visualized lung bases are unremarkable. The visualized portions of the heart are within normal limits. Normal liver. There are surgical clips in the gallbladder fossa consistent with a prior cholecystectomy. Normal spleen. Normal pancreas. Normal bilateral adrenal glands. Normal right kidney. 2 cysts are seen in the left kidney measuring respectively 3.7 cm and 4.2 cm respectively. Normal visualized stomach. Normal small intestine. There are multiple colonic diverticula consistent with diverticulosis. There is non-visualization of the appendix. Normal abdominal aorta. Normal inferior vena cava. Normal retroperitoneum. Normal urinary bladder. There is a small umbilical hernia containing fat. There are diffuse degenerative changes of the visualized lumbar spine. CT/Abdomen/Pelvis without Cont IMPRESSION: Colon diverticulosis. Electronically Signed: Sumit Covarrubias, at 0:49 EDT Tel , Service support ,
== END 2019-12-25 01:50 | disposition home or self-care (01) ==
PROVIDERS: Emergency Provider Emergency Medicine; PCP Family Medicine
DX: K59.00 Constipation, unspecified (principal); I10 Essential (primary) hypertension; E78.5 Hyperlipidemia, unspecified; E66.9 Obesity, unspecified; Z79.01 Long term (current) use of anticoagulants; Z79.899 Other long term (current) drug therapy; Z90.49 Acquired absence of other specified parts of digestive tract
CPT/HCPCS: 74176; 80053; 81001; 83690; 85025; 96361; 96374; 99283; J7030; A4216; J2405

== ENCOUNTER → 2020-01-03 13:46 | Outpatient (CLI) | payer MEDICARE, OTHER, SELFPAY ==
[2020-01-03 09:30] VITALS: BMI 37.5
[2020-01-03 14:42] LABS: AST(SGOT) 46 U/L (15-37); Alanine Aminotransfer ALT/SGPT 53 U/L (13-56); Albumin, Serum 3.7 g/dL (3.2-5.0); Alkaline Phosphatase 88 U/L (45-117); Bilirubin, Direct 0.29 mg/dL (0.00-0.30); Globulin 3.4 g/dL (2.2-4.2); Protein, Total 7.1 g/dL (6.4-8.2); Thyroid Stim Hormone (TSH) 2.65 uIU/mL (0.358-3.74)
== END ==
PROVIDERS: PCP Family Medicine; Referring Provider Physician Assistant Medical; Visit Provider Physician Assistant Medical
DX: I48.0 Paroxysmal atrial fibrillation (principal); E03.9 Hypothyroidism, unspecified
CPT/HCPCS: 36415; 80076; 84443

== ENCOUNTER → 2020-02-04 08:07 | Outpatient (CLI) | payer MEDICARE, OTHER, SELFPAY ==
[2020-01-03 09:30] VITALS: BMI 37.5
--- NOTE | 2020-02-04 13:06 | PFT ---
INTRODUCTION: The patient is an 84-year-old female that presents for pulmonary function studies secondary to a diagnosis of high risk medication use. Respiratory therapy reports good patient effort. Bronchodilators were used during testing. INTERPRETATION: Forced expiration spirometry demonstrates the presence of a moderate large airways obstructive ventilatory defect. There was a significant response to aerosolized bronchodilators noted. Spirograms are of good quality and plateau gradually indicating slow emptying of the lungs. Body plethysmography was performed and reveals a decreased TLC to 3.58 L, 73% of predicted, indicative of a mild restrictive ventilatory impairment. Diffusing capacity by single breath CO is reduced at 60% of predicted. IMPRESSION: Partially reversible moderate mixed ventilatory defect with symmetric reduction in diffusing capacity.
== END ==
PROVIDERS: PCP Family Medicine; Referring Provider Physician Assistant Medical; Visit Provider Physician Assistant Medical
DX: I48.0 Paroxysmal atrial fibrillation (principal)
CPT/HCPCS: 94060; 94726; 94729

== ENCOUNTER 2020-04-05 09:23 | Emergency (ER) | payer MEDICARE, OTHER, SELFPAY ==
[2020-01-03 09:30] VITALS: BMI 37.5
[2020-04-05 09:24] VITALS: BP 157/74; PULSE 53; RESP 17; TEMP 36.6; O2SAT 95; BMI 33.3
--- NOTE | 2020-04-05 09:38 | EKG12_ITS ---
Test Reason : WEAKNESS Blood Pressure : / mmHG Vent. Rate : 047 BPM Atrial Rate : 115 BPM P-R Int : 000 ms QRS Dur : 086 ms QT Int : 482 ms P-R-T Axes : 000 -10 079 degrees QTc Int : 426 ms Junctional rhythm Cannot rule out Anterior infarct , age undetermined , U waves present Abnormal ECG Confirmed by QIANA MARTINEZ, CHANTALE ([id number]), editor greeting card SAE AREVALO ([id number]) on 04/07/2020 11:04:57 AM Referred By: HUI Confirmed By:CHANTALE KIRAN MD
[2020-04-05 10:17] VITALS: PULSE 52
--- NOTE | 2020-04-05 10:20 | RAD_ITS ---
STUDY: X-RAY CHEST REASON FOR EXAM: Female, 85 years old. GENERALIZED WEAKNESS SINCE YESTERDAY. TECHNIQUE: Single frontal view of the chest. COMPARISON: 06/05/2019 FINDINGS: Cardiac silhouette unremarkable. Pulmonary vascularity unremarkable. Aorta unremarkable. No focal airspace opacities. No pleural effusions. Mildly increased opacity at the right base is presumed secondary to rotation. Upper abdomen unremarkable. Osseous structures intact. No pneumothorax. RAD/Chest 1 View (Portable) IMPRESSION: No acute cardiopulmonary process identified. Electronically Signed: Cristhian Carrillo, at 15:41 EST Tel , Service support ,
[2020-04-05 10:23] LABS: Mucous, Urine 0 SEEN /hpf (<or=2+); Red Blood Cells-Urine 0 SEEN /hpf (0-5)
[2020-04-05 10:29] LABS: Absolute Lymphocyte Count 1.98 X10^3/uL (0.83-4.51); Absolute Neutrophil Count 5.9 X10^3/uL (2.0-7.7); Basophil# 0.03 X10^3/uL; Basophil% 0.3 % (0-1); Eosinophil# 0.52 X10^3/uL; Eosinophils% 5.8 % (0-5); Hematocrit 42.7 % (37-47); Hemoglobin 13.3 g/dL (12.0-15.0); Lymphocyte # 1.98 X10^3/ul (4.0); Mean Corp Hgb Conc 31.1 g/dL (32-36); Mean Corpuscular Hgb 27.3 pg (27.0-32.0); Mean Corpuscular Volume 87.5 fL (81-99); Mean Platelet Vol. 10.4 fl (6.2-12.0); Monocyte# 0.58 X10^3/uL; Monocyte% 6.4 % (0-10); NRBC Flagged by Analyzer 0 % (0-5); Neutrophil # 5.88 X10^3/uL (2.7-7.7); Neutrophil % 65.3 % (47-70); Platelet Count 221 K/mm3 (150-450); RBC Distribution Width CV 14.6 % (11.6-14.6); RBC Distribution Width SD 46.6 fl (35.1-43.9); Red Blood Count 4.88 M/mm3 (4.2-5.4)
[2020-04-05 10:45] LABS: Color, Urine Yellow (Yellow); Glucose, Dipstick Normal (Normal); Ketone-Dipstick 5 mg/dl (Negative); Leukocyte Esterase-Dipstick 500 /ul (Negative); Nitrite-Dipstick Positive (Negative); Occult Blood-Urine 10 /ul (Negative); Protein-Dipstick 100 mg/dl (Negative); Specific Gravity, Urine 1.025 (1.002-1.030); Urine Clarity Sl. Cloudy (Clear); Urine Urobilinogen 1 mg/dl (Normal)
[2020-04-05 10:46] LABS: ALB/GLOB Ratio 1.1 RATIO (0.9-2.4); AST(SGOT) 81 U/L (15-37); Alanine Aminotransfer ALT/SGPT 78 U/L (13-56); Albumin, Serum 4.1 g/dL (3.2-5.0); Alkaline Phosphatase 131 U/L (45-117); Anion Gap 4 (5-15); BUN 17 mg/dL (7-18); BUN/Creat Ratio 13.8 RATIO (10-20); Calcium,Total 9.1 mg/dL (8.5-10.1); Chloride 106 mmol/L (98-107); Creatinine, Serum 1.23 mg/dL (0.55-1.02); EST Glomerular Filtration Rate 44 mL/min (>60); Est Glom Filt Rate - Afr Amer 54 mL/min (>60); Estimated Creatinine Clearance 30.64 ml/min; Globulin 3.8 g/dL (2.2-4.2); Glucose 127 mg/dL (74-106); Potassium 3.7 mmol/L (3.5-5.1); Protein, Total 7.9 g/dL (6.4-8.2); Sodium Level 139 mmol/L (136-145); Thyroid Stim Hormone (TSH) 3.95 uIU/mL (0.358-3.74); Urine Bilirubin Dipstick 1 mg/dL (Negative)
[2020-04-05 10:49] LABS: Bacteria 4+ /hpf (None Seen); Hyaline Cast 0-5 SEEN /lpf (0-5)
[2020-04-05 10:51] LABS: Amorphous Sediment 1+; Squamous Epithelial Cells - UA 0-5 SEEN /hpf (5-10); White Blood Cells 5-10 SEEN /hpf (0-5)
--- NOTE | 2020-04-05 11:30 | CM.ED ---
SOCIAL WORK Informant: Dr. Mckee Reason for Consult: Mental Health Resources Met with patient in room. Introduced role and reason for referral. Patient states lives home alone and is independent with ADLS. Patient reports history of depression and anxiety that has been exacerbated since the start of the pandemic. Patient states, I have been in the house for 8 months. Patient reports is treated with medication for depression and anxiety, but feels it may not be working. Discussed follow up with PCP-Dr. Webster to discuss medications. Patient in agreement with plan. Patient reports does enjoy coloring and that normally helps with anxiety. Patient states, I just worry about everything. Patient denies any suicidal ideation, plan or intent. Discussed counseling. Patient open to reviewing list of providers and states if needed will set up own appointment after speaking with PCP. Much emotional support and active listening provided throughout. Plan: Home with resources provided Margarito Sage MSW, SENIOR RISK MANAGER
[2020-04-05] MEDS: Cephalexin 250 MG Capsule 500 MG PO (11:57)
[2020-04-05 12:00] VITALS: BP 159/63; PULSE 79; RESP 18; O2SAT 97
--- NOTE | 2020-04-05 12:11 | ED.VIS.GEN ---
History of Present Illness Chief Complaint: Weakness Informant: Patient Narrative: 85-year-old female with past medical history of paroxysmal atrial fibrillation, hypothyroidism, hypertension presents with concern for weakness. Patient states she has been feeling weak. States that she has been in the house for 8 months given coronavirus. States that she is feeling down but not suicidal. Patient currently follows with Dr. Webster and takes Zoloft. Denies any chest pain, shortness of breath, cough, fever, chills, abdominal pain, nausea, vomiting. Past Medical History - Allergies and Home Meds Allergies/Adverse Reactions: Allergies diclofenac [From Cataflam] Allergy (Severe, Verified 04/05/20 09:24) SOB aspirin Allergy (Verified 04/05/20 09:24) Unknown NSAIDS (Non-Steroidal Anti-Inflamma Allergy (Verified 04/05/20 09:24) Unknown flecainide Adverse Reaction (Unknown, Verified 04/05/20 09:24) Unknown sotalol Adverse Reaction (Unknown, Verified 04/05/20 09:24) Unknown Primary Care Physician: Pasha Webster MD [Primary Care Provider] - Prior records reviewed: Yes Past Medical History: - - PAF, hypothyroidism Surgical History: cholecystectomy, - - Right arm surgery with plate placed. Lives: Spouse/ Significant Other Smoking Status: Never smoker Alcohol: None Drugs: None - Family History Maternal Family History: Family History (Last Reviewed 01/03/20 @ 13:24 by Alycia JIMÉNEZ, PA) Mother Diabetes CVA (cerebral vascular accident) Hypertension Brother Hypertension Diabetes Sister Diabetes Family History: Reports: No pertinent history Review of Systems General: Denies: Chills, Fever, Sweats Eyes: Denies: Visual changes - bilaterally, Diplopia ENT: Denies: Rhinorrhea, Sore throat Cardiovascular: Denies: Chest pain, Palpitations Respiratory: Denies: Dyspnea, Cough, Dyspnea on exertion Gastrointestinal: Denies: Abdominal pain, Nausea, Vomiting, Diarrhea, Melena, Hematochezia Genitourinary: Denies: Dysuria, Hematuria, Frequency Musculoskeletal: Denies: Back pain, Extremity Pain Skin: Denies: Rash, Wounds Neurological: Reports: Weakness. Denies: Headache, Numbness Physical Exam Vital Signs/Narrative: Vital Signs Temp Pulse Resp BP Pulse Ox 04/05/20 12:00 79 18 159/63 H 97 04/05/20 10:17 52 L 04/05/20 09:24 97.8 F 53 L 17 157/74 H 95 Inital Vital Signs reviewed: Yes General: Well nourished, Well developed, No Acute Distress Head: Normocephalic, Atraumatic Eyes: Perrl, EOMI ENT: Moist mucous membranes, No rhinorrhea Neck: Supple, Nontender Cardiovascular: Regular rate, Regular rhythm, No murmurs Respiratory: No distress, CTA bilaterally, Chest nontender Abdomen: Soft, Nontender, Nondistended, Normal bowel sounds Back: Nontender, Normal Inspection Extremities: Nontender, No edema Skin: Normal color, No rash Neurological: Alert, Oriented x3, Cranial nerves II-XII grossly intact, Normal Strength, Normal Sensation Psychological: Normal affect, Normal Mood Diagnostic/Tx/Re-eval Chest X-Ray - ED: 1 View, Read by ED Physician, Normal Laboratory Data 04/05/20 04/05/20 04/05/20 10:05 10:05 10:05 WBC 9.0 RBC 4.88 Hgb 13.3 Hct 42.7 MCV 87.5 MCH 27.3 MCHC 31.1 L RDW Std Deviation 46.6 H RDW Coeff of Xochilt 14.6 Plt Count 221 MPV 10.4 Immature Gran % (Auto) 0.200 Neut % (Auto) 65.3 Lymph % (Auto) 22.0 [place] % (Auto) 6.4 Eos % (Auto) 5.8 H Baso % (Auto) 0.3 Absolute Neuts (auto) 5.9 Absolute Lymphs (auto) 1.98 Nucleated RBC % 0 Sodium 139 Potassium 3.7 Chloride 106 Carbon Dioxide 29.0 Anion Gap 4 L BUN 17 Creatinine 1.23 H Estim Creat Clear Calc 30.64 Est GFR (MDRD) Af Amer 54 L Est GFR (MDRD) Non-Af 44 L BUN/Creatinine Ratio 13.8 Glucose 127 H Calcium 9.1 Total Bilirubin 0.60 AST 81 H ALT 78 H Alkaline Phosphatase 131 H Troponin I < 0.015 Total Protein 7.9 Albumin 4.1 Globulin 3.8 Albumin/Globulin Ratio 1.1 TSH 3.95 H Urine Color Yellow Urine Clarity Sl. Cloudy Urine pH 5.0 Ur Specific [place] 1.025 Urine Protein 100 H Urine Glucose (UA) Normal Urine Ketones 5 H Urine Occult Blood 10 H Urine Nitrite Positive H Urine Bilirubin 1 H Urine Urobilinogen 1 H Ur Leukocyte Esterase 500 H Urine RBC 0 SEEN Urine WBC 5-10 SEEN Ur Squamous Epith Cells 0-5 SEEN Amorphous Sediment 1+ Urine Bacteria 4+ Hyaline Casts 0-5 SEEN Urine Mucus 0 SEEN - Rhythm Strip Rhythm Strip: Junctional rhythm Rate: 47 - EKG Initial EKG Interpretation: Junctional - Junctional rhythm at 47 bpm. QTC of 426 ms. No evidence of ST elevation or depression at this time. - Medical Decision Making Patient appears well and nontoxic. Initially bradycardic around 50. This is resolved during her stay and her current heart rate is approximately 60. EKG does show a junctional rhythm. Patient has no chest pain or shortness of breath. Troponin negative. Chest x-ray normal. Patient does have a urinary tract infection and was given Keflex for home. Case management spoke at length with the patient who is not suicidal or homicidal but has been struggling with staying inside during the coronavirus pandemic. Patient will follow up with Dr. Webster to have her anxiety and depression medication titrated. Patient has appointment with her human resources administrator next week and was advised to discuss her intermittent bradycardia. Asked to return for any fever, chills, abdominal pain. Patient agreeable and discharged home in stable condition. Impression: 1. UTI 2. Intermittent bradycardia 3. Depression ED Disposition - Plan for ED Patient: Disposition: Home or Assisted Living Instructions: ED Bladder [id number] chil, ED Bradycardia, ED Depression Prescriptions: Cephalexin [Keflex] 500 mg PO Q12 #14 cap Prescription Printed Referrals: Pasha Webster MD [Primary Care Provider] - 2 Days
[2020-04-05 12:38] VITALS: PULSE 67; O2SAT 97
== END 2020-04-05 12:39 | disposition home or self-care (01) ==
PROVIDERS: Emergency Provider Emergency Medicine; PCP Family Medicine
DX: N39.0 Urinary tract infection, site not specified (principal); R00.1 Bradycardia, unspecified; I48.0 Paroxysmal atrial fibrillation; I10 Essential (primary) hypertension; E03.9 Hypothyroidism, unspecified; F32.9 Major depressive disorder, single episode, unspecified; Z79.01 Long term (current) use of anticoagulants; Z79.899 Other long term (current) drug therapy
CPT/HCPCS: 71045; 80053; 81001; 84443; 84484; 85025; 87077; 87086; 87088; 87186; 93005; 96360; 99284; J7030; A4216

== ENCOUNTER 2020-04-15 16:13 | Emergency (ER) | payer MEDICARE, OTHER, SELFPAY ==
[2020-04-13 14:56] VITALS: BMI 33.9
[2020-04-15 16:15] VITALS: BP 152/72; PULSE 52; RESP 16; TEMP 36.5; O2SAT 94; BMI 33.9
--- NOTE | 2020-04-15 16:58 | RAD_ITS ---
STUDY: X-RAY CHEST REASON FOR EXAM: Female, 85 years old. WEAKNESS AND INCREASE SOB TECHNIQUE: AP portable COMPARISON: 04/05/2020 FINDINGS: The lungs are clear and expanded. There is no demonstrated pleural abnormality. Heart is mildly enlarged. Normal mediastinum and augusto. Normal visualized pulmonary arteries. Normal visualized aortic arch and descending thoracic aorta. Normal visualized thoracic spine. Normal visualized ribs, and clavicles. There are postsurgical changes of the right shoulder and degenerative changes on the left. There is no demonstrated abnormality of the visualized soft tissue structures of the upper abdomen. RAD/Chest 1 View (Portable) IMPRESSION: No acute cardiopulmonary pathology Electronically Signed: Rafael Cornell MD at 17:24 EST , Service support ,
--- NOTE | 2020-04-15 17:07 | ED.VIS.GEN ---
History of Present Illness Chief Complaint: Weakness Informant: Patient Onset: Month(s) Maximum Severity: Mild Narrative: Patient presents complaining of generalized anxiety and fatigue that she has had for over 6 months she is had an extensive work-up for this multiple lab test CAT scans EKG she seen her outpatient providers utility inspector etc. there is no diagnosis that has been established she has been told this is related to anxiety she is been taking Zoloft, she has no reports of improvement with Zoloft. She has had no exposures to coronavirus no fever no cough no chest pain no numbness weakness paresthesias. She has been able to execute all of her daily activities without difficulty, she presents to the emergency department asking that something else be given to her for her anxiety so she can sleep at night We discussed the wide differential she does not wish to have an ED evaluation with labs x-rays EKG Past Medical History - Allergies and Home Meds Allergies/Adverse Reactions: Allergies diclofenac [From Cataflam] Allergy (Severe, Verified 04/15/20 16:14) SOB aspirin Allergy (Verified 04/15/20 16:14) Unknown NSAIDS (Non-Steroidal Anti-Inflamma Allergy (Verified 04/15/20 16:14) Unknown flecainide Adverse Reaction (Unknown, Verified 04/15/20 16:14) Unknown sotalol Adverse Reaction (Unknown, Verified 04/15/20 16:14) Unknown Primary Care Physician: Pasha Webster MD [Primary Care Provider] - Past Medical History: - - Bradycardia cholecystectomy includes as above Surgical History: cholecystectomy, - - Right arm surgery with plate placed. Smoking Status: Never smoker - Family History Maternal Family History: Family History (Last Reviewed 01/03/20 @ 13:24 by Alycia JIMÉNEZ, PA) Mother Diabetes CVA (cerebral vascular accident) Hypertension Brother Hypertension Diabetes Sister Diabetes Family History: Reports: No pertinent history Review of Systems General: Reports: - - Sense of intermittent generalized weakness. Denies: Chills, Fever, Sweats Eyes: Denies: Visual changes - bilaterally, Diplopia ENT: Denies: Rhinorrhea, Sore throat Cardiovascular: Denies: Chest pain, Palpitations Respiratory: Denies: Dyspnea, Cough, Dyspnea on exertion Gastrointestinal: Denies: Abdominal pain, Nausea, Vomiting, Diarrhea, Melena, Hematochezia Genitourinary: Denies: Dysuria, Hematuria, Frequency Musculoskeletal: Denies: Back pain, Extremity Pain Skin: Denies: Rash, Wounds Neurological: Denies: Headache, Weakness, Numbness Physical Exam Vital Signs/Narrative: Vital Signs Temp Pulse Resp BP Pulse Ox 04/15/20 16:15 97.7 F L 52 L 16 152/72 H 94 General: Well nourished, Well developed, No Acute Distress Head: Normocephalic, Atraumatic Eyes: Perrl, EOMI ENT: Moist mucous membranes, No rhinorrhea Neck: Supple, Nontender Cardiovascular: Regular rate, Regular rhythm, No murmurs Respiratory: No distress, CTA bilaterally, Chest nontender Abdomen: Soft, Nontender, Nondistended, Normal bowel sounds Back: Nontender, Normal Inspection Extremities: Nontender, No edema Skin: Normal color, No rash Neurological: Alert, Oriented x3, Cranial nerves II-XII grossly intact, Normal Strength, Normal Sensation Psychological: Normal affect, Normal Mood Diagnostic/Tx/Re-eval - Medical Decision Making The patient's vital signs are all unremarkable she is resting comfortably in the bed Her heart tones are regular, her head neck chest exam unremarkable moving all 4 extremities neurologic exam normal We offered and recommended ED evaluation with labs EKG etc. she declined that saying she is had all those tests before they were all negative with regards to the intermittent bradycardia she is followed with her utility inspector who told her nothing more needs to be done and this is not really causing her symptoms At this time she indicates she gets very nervous and anxious for no specific reason there is no suicidal homicidal ideation documented the Zoloft is not helping, it is the weekend she has nobody to see her providers. Given that given all the above her refusal for ED work-up she will be treated with Ativan 0.5 mg and she will have that dose for the next few days so she can sleep and she will follow-up with outpatient providers for the management of the above and return for change in symptoms Home stable patient declined ED work-up Final impression anxiety, intermittent weakness, ED Disposition - Plan for ED Patient: Prescriptions: Lorazepam [Ativan] 0.5 mg PO TID #10 tab Prescription Printed Referrals: Pasha Webster MD [Primary Care Provider] -
[2020-04-15] MEDS: LORazepam 0.5 MG Tablet PO (17:12)
--- NOTE | 2020-04-15 17:13 | ED.DEP ---
ED Disposition - Plan for ED Patient: Diagnosis: anxiety Prescriptions: Lorazepam [Ativan] 0.5 mg PO TID #10 tab Prescription Printed Referrals: Pasha Webster MD [Primary Care Provider] -
--- NOTE | 2020-04-15 17:19 | ED.DEP ---
ED Disposition - Plan for ED Patient: Diagnosis: anxiety Instructions: ED Weakness (Uncertain Cause), Understanding Generalized Anxiety Disorder (NEO), ED Anxiety Reaction Prescriptions: Lorazepam [Ativan] 0.5 mg PO TID #10 tab Prescription Printed Referrals: Pasha Webster MD [Primary Care Provider] -
== END 2020-04-15 17:35 | disposition home or self-care (01) ==
LOC: ED 16:46
PROVIDERS: Emergency Provider Emergency Medicine; PCP Family Medicine
DX: F41.9 Anxiety disorder, unspecified (principal); R53.1 Weakness; R00.1 Bradycardia, unspecified; Z79.01 Long term (current) use of anticoagulants; Z79.899 Other long term (current) drug therapy
CPT/HCPCS: 71045; 99283

== ENCOUNTER 2020-05-14 16:34 | Emergency (ER) | payer MEDICARE, OTHER, SELFPAY ==
[2020-05-03 11:04] VITALS: BMI 34.1
[2020-05-14 16:35] VITALS: BP 142/75; PULSE 55; RESP 20; TEMP 36.5; O2SAT 94; BMI 33.8
--- NOTE | 2020-05-14 17:51 | ED.DCSUM_ITS ---
- ER Visit Summary Date of Service: 05/14/20 Chief Complaint: Anxiety History of Present Illness: The patient is a 85 F history of A. fib, hypertension, bradycardia and hiatal hernia. Patient had a prior cardiac ablation. She said since the pandemic started she has basically been housebound. She says made her anxiety a lot worse and today she was is very anxious to the point home she threw up x1. Denies any abdominal pain. Denies any fever. No dysuria. Says she actually feels better now. But she would like something for her anxiety. Says she took Benadryl last night and it really did not help her. Physical Examination: Older female no acute distress vital signs stable afebrile. HEENT exam unremarkable. She is sitting upright in a chair. Lungs clear to auscultation. Heart regular rhythm rate about 60. Abdomen soft nontender normal bowel sounds no peritoneal signs. No distention. Patient is moving all 4 extremities. No edema. Neurologically she is awake alert with no focal motor deficits. Currently she does not seem anxious. Test Results: Discharge Emergency Department Course and Treatment: Patient with acute on chronic anxiety. She is calm right now and is needing currently. Treatment Plan: Discussed with patient other options other medication such as exercise, walking, reading and meditation. She said she does some of those things but still feels like she needs some her anxiety is at its worse. I will write her for a few half milligram Ativan No. 10 no refill and she will follow up her primary care physician. Disposition: Discharge Impression: Acute on chronic anxiety History of A. fib History of hypertension This note was generated with [employer]chelle dictation software. It may contain incorrect words, spelling, and punctuation that were not noted in review of the chart prior to signing ED Disposition - Plan for ED Patient: Referrals: Pasha Webster MD [Primary Care Provider] -
--- NOTE | 2020-05-14 17:53 | ED.DEP ---
ED Disposition - Plan for ED Patient: Disposition: Home or Assisted Living Instructions: ED Panic Attack Prescriptions: Lorazepam [Ativan] 0.5 mg PO DAILY PRN PRN #10 tab PRN Reason: Anxiety Prescription Printed Referrals: Pasha Webster MD [Primary Care Provider] - 1 Week Additional Instructions: Follow-up with your doctor to see if the Ativan is working only take it if you need it. Do not drive or drink alcohol if you use the Ativan.
== END 2020-05-14 18:01 | disposition home or self-care (01) ==
PROVIDERS: Emergency Provider Emergency Medicine; PCP Family Medicine
DX: F41.9 Anxiety disorder, unspecified (principal); I48.91 Unspecified atrial fibrillation; I10 Essential (primary) hypertension; R11.2 Nausea with vomiting, unspecified; J45.909 Unspecified asthma, uncomplicated; K21.9 Gastro-esophageal reflux disease without esophagitis; Z79.01 Long term (current) use of anticoagulants; Z79.899 Other long term (current) drug therapy
CPT/HCPCS: 99282

== ENCOUNTER → 2020-05-31 12:52 | Outpatient (CLI) | payer MEDICARE, OTHER, SELFPAY ==
[2020-05-03 11:04] VITALS: BMI 34.1
[2020-05-14 16:35] VITALS: BMI 33.8
== END ==
PROVIDERS: PCP Family Medicine; Referring Provider Physician Assistant Medical; Visit Provider Physician Assistant Medical
DX: I48.0 Paroxysmal atrial fibrillation (principal); R00.1 Bradycardia, unspecified
CPT/HCPCS: 93225; 93226

== ENCOUNTER → 2020-06-14 09:33 | Outpatient (CLI) | payer MEDICARE, OTHER, SELFPAY ==
[2020-06-13 13:14] VITALS: BMI 33.6
--- NOTE | 2020-06-14 09:35 | ECHOCS_ITS ---
Reason For Study: Afib/Flutter Procedure This was a 2D Doppler, Color Flow transthoracic echocardiogram. Technically difficult study due to patients body habitus. Contrast injection performed. Exam performed in department. Left Ventricle Normal LV size. Mild concentric left ventricular hypertrophy. Left ventricular systolic function is normal. The estimated ejection fraction is 60 %. No regional wall motion abnormalities noted. Right Ventricle Normal RV size. Normal systolic function. Atria The left atrium is mildly enlarged. Normal right atrium. No doppler evidence for ASD. Mitral Valve There is mild mitral annular calcification. Normal mitral valve. Moderate (2+) mitral valve insufficiency. Tricuspid Valve Normal tricuspid valve. Mild tricuspid valve insufficiency. Right ventricular systolic pressure estimated to be 45 mmHg. Aortic Valve Trisinus/trileaflet aortic valve. Normal aortic valve. Pulmonic Valve The pulmonic valve is not well visualized. Great Vessels The aortic root is not well visualized. Pericardium/Pleural No pericardial effusion. Medication 22 gauge I.V. with prn adaptor inserted into right arm. Diluted definity 2ml given slow IV push to enhance endocardial definition. MMode/2D Measurements & Calculations LVIDd: 5.0 cm IVSd: 1.3 cm LA dimension: 4.0 cm LVIDs: 3.2 cm LVPWd: 1.3 cm FS: 36.2 % LAV(MOD-bp): 55.6 ml LA A4 area: 20.9 cm2 RA A4 area: 15.7 cm2 LAV(MOD-bp) Indexed: 28.0 ml/m2 LAV(MOD-sp2): 52.0 ml LAV(MOD-sp4): 60.0 ml Time Measurements MV dec time: 0.24 sec Doppler Measurements & Calculations MV E max ronald: 116.8 cm/sec Lat Peak E' Ronald: 10.0 cm/sec Med Peak E' Ronald: 7.4 cm/sec MV A max ronald: 31.8 cm/sec E/E' lat: 11.7 E/E' med: 15.7 MV E/A: 3.7 MV V2 max: 133.3 cm/sec MV P1/2t max ronald: 134.1 cm/sec Ao V2 max: 108.7 cm/sec MV max P.1 mmHg MV P1/2t: 96.1 msec Ao max P.7 mmHg MV V2 mean: 61.5 cm/sec MV dec slope: 408.5 cm/sec2 MV mean P.9 mmHg MV V2 VTI: 41.0 cm MVA(P1/2t): 2.3 cm2 LV V1 max: 102.2 cm/sec PA V2 max: 81.5 cm/sec TR max ronald: 324.1 cm/sec LV V1 max P.2 mmHg TR max P.0 mmHg Interpretation Summary Left ventricular systolic function is normal. The estimated ejection fraction is 60 %. Mild concentric left ventricular hypertrophy. The left atrium is mildly enlarged. There is mild mitral annular calcification. Moderate (2+) mitral valve insufficiency. Mild tricuspid valve insufficiency. Right ventricular systolic pressure estimated to be 45 mmHg. Transmitral diastolic flow velocities suggest diastolic dysfunction (pseudonormal pattern). Ordering Physician: Alycia Warren Referring Physician: Pasha Webster Performed By: Enmanuel Perez RCS
== END ==
PROVIDERS: PCP Family Medicine; Referring Provider Physician Assistant Medical; Visit Provider Physician Assistant Medical
DX: Z98.890 Other specified postprocedural states (principal)
CPT/HCPCS: 93306; Q9957; A4216; C8929

== ENCOUNTER 2020-07-03 14:42 | Observation (INO) | payer MEDICARE, OTHER, SELFPAY ==
[2020-06-13 13:14] VITALS: BMI 33.6
--- NOTE | 2020-06-19 11:33 | RAD_ITS ---
STUDY: X-RAY CHEST REASON FOR EXAM: Female, 85 years old. FOR PPM IMPLANT, NO CHEST COMPLAINTS TECHNIQUE: PA and lateral views of the chest. COMPARISON: 04/15/2020. FINDINGS: The lungs are clear and expanded. There is no demonstrated pleural abnormality. There is borderline cardiomegaly. Normal mediastinum and augusto. Normal visualized pulmonary arteries. There is atherosclerotic calcification of the aortic arch with tortuosity. There is demineralization of the osseous structures. There is degenerative osteoarthritis of the bilateral shoulders and spine. Postoperative changes of the proximal right humerus. There is no demonstrated abnormality of the visualized soft tissue structures of the upper abdomen. RAD/Chest PA and Lateral IMPRESSION: No acute cardiopulmonary disease. Electronically Signed: Marisol Al MD at 0:28 EST , Service support ,
[2020-06-19 11:44] LABS: Mucous, Urine 0 SEEN /hpf (<or=2+); Red Blood Cells-Urine 0 SEEN /hpf (0-5)
[2020-06-19 12:52] LABS: Color, Urine Yellow (Yellow); Glucose, Dipstick Normal (Normal); Ketone-Dipstick Negative (Negative); Leukocyte Esterase-Dipstick 100 /ul (Negative); Nitrite-Dipstick Negative (Negative); Occult Blood-Urine Negative /ul (Negative); Protein-Dipstick 15 mg/dl (Negative); Urine Bilirubin Dipstick Negative (Negative); Urine Clarity Sl. Cloudy (Clear); Urine Urobilinogen Normal (Normal)
[2020-06-19 12:54] LABS: Hematocrit 42.7 % (37-47); Hemoglobin 13.4 g/dL (12.0-15.0); Mean Corp Hgb Conc 31.4 g/dL (32-36); Mean Corpuscular Volume 85.9 fL (81-99); Mean Platelet Vol. 10.9 fl (6.2-12.0); Platelet Count 224 K/mm3 (150-450); RBC Distribution Width CV 15.6 % (11.6-14.6); RBC Distribution Width SD 49.4 fl (35.1-43.9); Red Blood Count 4.97 M/mm3 (4.2-5.4); White Blood Count 9.2 K/mm3 (4.4-11.0)
[2020-06-19 12:58] LABS: Bacteria 1+ /hpf (None Seen); Squamous Epithelial Cells - UA 5-10 SEEN /hpf (5-10); White Blood Cells 10-25 SEEN /hpf (0-5)
[2020-06-19 13:01] LABS: International Normalized Ratio 1.7; Prothrombin Time (Protime)PT. 19.7 SECONDS (11.7-14.9)
[2020-06-19 13:22] LABS: Anion Gap 5 (5-15); BUN 19 mg/dL (7-18); BUN/Creat Ratio 14.6 RATIO (10-20); Calcium,Total 9.3 mg/dL (8.5-10.1); Chloride 105 mmol/L (98-107); EST Glomerular Filtration Rate 42 mL/min (>60); Est Glom Filt Rate - Afr Amer 50 mL/min (>60); Glucose 92 mg/dL (74-106); Potassium 3.6 mmol/L (3.5-5.1); Sodium Level 139 mmol/L (136-145)
[2020-06-26 08:38] LABS: Mucous, Urine 0 SEEN /hpf (<or=2+); Red Blood Cells-Urine 0 SEEN /hpf (0-5); Squamous Epithelial Cells - UA 0 SEEN /hpf (5-10); White Blood Cells 0 SEEN /hpf (0-5)
[2020-06-26 09:08] LABS: Color, Urine Yellow (Yellow); Glucose, Dipstick Normal (Normal); Ketone-Dipstick Negative (Negative); Leukocyte Esterase-Dipstick 25 /ul (Negative); Nitrite-Dipstick Negative (Negative); Occult Blood-Urine 25 /ul (Negative); Protein-Dipstick 15 mg/dl (Negative); Urine Bilirubin Dipstick Negative (Negative); Urine Clarity Clear (Clear); Urine Urobilinogen Normal (Normal)
[2020-06-26 09:19] LABS: Bacteria 2+ /hpf (None Seen)
[2020-06-30 09:13] VITALS: BMI 33.6
--- NOTE | 2020-07-03 09:00 | HP_ITS ---
HPI HPI History of Present Illness Details: This is an 85-year-old white female who presents here today for an urgent cardiovascular appt at the request of GI for a low HR. She has a history of SVT/AVNRT with subsequent slow pathway ablation and atrial fibrillation status post EPS/RFA superimposed upon hypertension. Patient was seen at the [facility] emergency department 04/05/2020 for generalized weakness. Her EKG showed junctional rhythm at a rate of 47 bpm. She does acknowledge that during her recent endoscopy she was also told to have a low heart rate. Her amiodarone was decreased to 100 mg. Because of her continued slow heart rate we stopped her amiodarone last month. I did obtain a 24-hour Holter monitor which did demonstrate average heart rate 48 bpm, minimum heart rate 30 bpm, maximum heart rate 72 bpm. There was a 4.1- second pause. She denies chest, arm, jaw, or neck discomfort. She denies symptoms of CHF, palpitations, lightheadedness, dizziness, near syncope, or syncopal episodes. She denies edema or claudication issues. She denies orthopnea, PND, fever, chills, cough, blood in urine, blood in stool, epistaxis, or myalgia. She states energy level and activity level. Intake Vital Signs 06/13/20 Height 5 ft 5 in 06/13/20 Weight: 202 lb 06/13/20 BP 151/79 H 06/13/20 Blood Pressure Location Lt brachial 06/13/20 Position Sitting 06/13/20 Respiration 18 06/13/20 Pulse 55 L 06/13/20 Pulse Source Monitor 06/13/20 Pulse Oximetry (%) 95 Intake Visit Reasons: 4-6 WK F/U (HOLTER 05-31-20) Lean Coach Required: No Accompanied by: None Is patient in pain?: No Allergies diclofenac [From Cataflam] Allergy (Severe, Verified 06/13/20 13:10) SOB aspirin Allergy (Verified 06/13/20 13:10) Unknown NSAIDS (Non-Steroidal Anti-Inflamma Allergy (Verified 06/13/20 13:10) Unknown flecainide Adverse Reaction (Unknown, Verified 06/13/20 13:10) Unknown sotalol Adverse Reaction (Unknown, Verified 06/13/20 13:10) Unknown Medications Sertraline HCl [Zoloft] 100 mg PO DAILY 03/10/16 [History Confirmed 06/13/20] Amlodipine [Norvasc] 10 mg PO DAILY 12/20/17 [History Confirmed 06/13/20] Fluticasone 0.05% [Flonase Nasal Peetz] 1 spray NASAL BID #1 nasal.sry 05/19/18 [Rx Confirmed 06/13/20] Warfarin Sodium [Coumadin] 4 mg PO MOWEFR 06/05/19 [History Confirmed 06/13/20] Warfarin Sodium [Coumadin] 2 mg PO SUTUTHSA 12/24/19 [History Confirmed 06/13/20] atorvastatin 20 mg tablet 20 mg PO QHS #90 tab 01/03/20 [Rx Confirmed 06/13/20] losartan 50 mg tablet 50 mg PO DAILY #90 tab 01/03/20 [Rx Confirmed 06/13/20] busPIRone [Buspar] 5 mg PO TID 04/05/20 [History Confirmed 06/13/20] levothyroxine 50 mcg tablet 75 mcg PO DAILY tab 06/13/20 [History Confirmed 06/13/20] [facility] Medical History Hypothyroidism (Chronic) GERD (gastroesophageal reflux disease) (Chronic) Paroxysmal a-fib (Chronic) Obesity (Chronic) Benign essential HTN (Chronic) Asthma (Chronic) SVT (supraventricular tachycardia) (Acute) Cellulitis and abscess of right leg (Chronic) Depression (Chronic) Hiatal hernia (Chronic) Acute asthma exacerbation (Resolved) Acute bronchitis (Resolved) Hypoxemia (Resolved) Surgical History History of radiofrequency ablation procedure for cardiac arrhythmia (Resolved) History of cholecystectomy (Resolved) History of tubal ligation (Resolved) Family History Mother Diabetes CVA (cerebral vascular accident) Hypertension Brother Hypertension Diabetes Sister Diabetes Social History (Updated 06/14/20 @ 14:29 by Alycia JIMÉNEZ, PA) Smoking Status: Never smoker alcohol intake: never substance use type: does not use caffeine: Yes Type: coffee Number of servings: 1 ROS Const Const: Negative for fatigue, weakness, body ache, fever(s) or chills ENT ENT: Negative for dizziness Cardio Chest Pain: No Palpitations: No Edema: None Muscle aches with walking: None Resp Respiratory: Negative for SOB with activity, SOB at rest, SOB orthopnea\SOB lying down or paroxysmal nocturnal dyspnea GI GI: Positive for other (Stomach feels nervous); negative nausea, vomiting blood/hematemesis, bright, red blood in stools or black,tarry stools : Negative for hematuria or frequent nighttime urination/ nocturia Musc Musc: Negative for muscle aches/ myalgia Skin Skin: Negative non-healing lesions or rash Neuro Neuro: Negative for dizziness, lightheadedness, near syncope, syncope, orthostatic symptoms or weakness Endo Endo: Negative for fatigue Allergy Allergy/Immunology: Negative for rash Cardiology Exam Const Appearance: cooperative, healthy appearing, comfortable and no acute distress Nutritional Appearance: well nourished and obese Orientation: alert, awake and oriented x3 Head Head: normal to inspection Ears: hearing grossly normal bilaterally Nose: external nose normal Face and Sinus: face symmetric Mouth: oral mucosae normal Eyes General: appearance normal, both eyes and all related structures Eyelids: eyelids normal EOM: EOM intact bilaterally Neck Neck: normal visual inspection and no JVD Carotids: normal carotid upstroke Chest Chest inspection: normal inspection of the chest, symmetric chest movement and normal respiratory effort; negative cough Auscultation: Bilateral: Clear to Auscultation Cardio Rate: bradycardic Rhythm: regular rhythm Heart sounds: S1 normal and S2 normal; negative rub, gallop or murmur GI GI: normal to inspection and obese Neuro General: alert, awake, oriented x3 and CN's II-XI intact bilaterally Skin Skin: no rashes or lesions noted Extremities Pulses: Normal: Right Posterior Tibial Pulse, Left Posterior Tibial Pulse, Right Radial Pulse, Left Radial Pulse Lower Extremity Edema: None: Bilateral Psych Psychological: normal affect Assessment & Plan 1. Benign essential hypertension I10 Plan Blood pressure is well controlled on current medications, we do not recommend any changes at this time. 2. Paroxysmal a-fib I48.0 Anticoagulated with Coumadin; History of EPS/RFA Plan Pt has not had any recurrence. She is on coumadin with a therapeutic INR of 2- 3. This will be able to be monitor throught her PPM. 3. Bradycardia R00.1 Plan She was noted to have 4.1 second pause. This was not on any rate limiting medications. It was discussed with her about pursuing a PPM. However would like to obtain an echocardiogram to re-evaluate LV function. Plan Detail Follow Up 06/13/20 (needs echo soon, then needs to be set up woth corey for a PPM teaching. Please try to get in the next week or 2 ) 06/13/20 (keep appt as is) Coding Level of Care Code Off vis,est,level 4 Diagnoses Benign essential hypertension I10 Paroxysmal a-fib I48.0 Bradycardia R00.1 Coding Level of Care Code Off vis,est,level 4 Diagnoses Benign essential hypertension I10 Paroxysmal a-fib I48.0 Bradycardia R00.1 Supplemental Info Supplemental Information Pharmacologic nuclear stress test in December 2017 done at outside facility was negative for ischemia. Her gated LVEF was reported at approximately 75%. Diagnostics Electrocardiogram 05/03/20 Chest X-Ray 04/15/20 Pulmonary Pulmonary Function Test 02/04/20
[2020-07-03 10:51] LABS: Prothrombin Time Fingerstick 15.8 SEC (11.9-14.4)
--- NOTE | 2020-07-03 14:41 | CL.IE_ITS ---
Patient: EDUARDO AMES V Study Date: 07/03/2020 Performing: Ochoa Mi MD : 1935 Age: 85 Gender: female PROCEDURES PERFORMED [id number] PACER INSERT+DUAL LEADS INDICATIONS Sinoatrial node dysfunction/Sick sinus syndrome PROCEDURE DETAILS The patient was brought to the Catheterization Lab in the postabsorptive nonsedated state. Infor med consent was obtained prior to the procedure. Local anesthetic was given subcutaneously to the le ft upper chest area with Lidocaine 2%. Incision was made to the left upper chest. Access was achieved and a guidewire was advanced into the left subclavian vein. PPM ventricular lead was inserted / posi tioned to right ventricular apex. PPM generator was then interrogated by the c programmer. PPM atrial l ead was inserted / positioned to the right atrial appendage. PPM atrial lead testing performed. The A trial lead sutured in place with 2-0 Silk. The Ventricular PM lead sutured in place with 2-0 Silk. PP M generator was attached to the lead(s) and inserted into the pocket. PPM generator was then interrog ated by the c programmer. PPM generator was removed from the pocket.. PPM atrial lead was repositioned and checked. The Atrial lead sutured in place with 2-0 Silk. Device pocket was irrigated with antibiotic. PPM generator was then interrogated by the c programmer. Subcutaneous closure was comp leted with 3-0 Vicryl. Skin closure was completed with 4-0 Vicryl. Steri-strips applied to Lt chest a klaus. The patient tolerated the procedure well. Estimated Blood Loss: < 10 mls IMPLANTED / EX-PLANTED DEVICES IMPLANTED DEVICE(S): PPM Ventricular lead - Sound Effects Supervisor: [employer], Model # Ingevity 7841 , Serial # [id number] PPM Atrial lead - Sound Effects Supervisor: [employer], Model # Ingevity [id number] , Serial # [id number] PPM Generator - Sound Effects Supervisor: [employer], Model # [employer]ent[employer] MRI DR Pacemaker Model L111 , Seria l # [id number] DEVICE PARAMETERS ATRIAL LEAD PARAMETERS: P wave- 3.5 (mV) Current- 3.1 (mA) threshold- 1.5 (V) impedence- 498 (OHMS) VENTRICULAR LEAD PARAMETERS: R wave- 15.5 (mV) Current- 0.9 (mA) threshold- 0.8 (V) impedence- 970 (OHMS) DEVICE PARAMETERS: Mode- DDD Lower rate- 60 Upper rate- 120 CONCLUSIONS / RECOMMENDATIONS Device Conclusions: Successful implantation of a dual chamber pacemaker Device Recommendations: Follow up with Primary Care Physician PROCEDURE MEDICATIONS Versed 1 mg IV Fentanyl 50 mcg IV Versed 1 mg IV Fentanyl 25 mcg IV Oxygen: 2 L/min via nasal cannula Antibiotic given in appropriate timeframe. Ancef 2 Gm IV @ 07/03/2020 12:17:17 Signed By Ochoa Mi MD On 07/03/2020 14:40:19 Ochoa Mi MD
[2020-07-03 15:08] VITALS: BMI 34.2
[2020-07-03 15:10] VITALS: BP 139/62; PULSE 60; RESP 18; TEMP 36.5; O2SAT 93
[2020-07-03 15:19] VITALS: BMI 34.3
[2020-07-03 16:04] VITALS: PULSE 62
[2020-07-03 19:34] VITALS: PULSE 61
[2020-07-03 21:20] VITALS: BP 147/72; PULSE 61; RESP 16; TEMP 36.9; O2SAT 92
[2020-07-03] MEDS: Smz/Tmp Ds Tablet 1 TABLET PO (21:58)
[2020-07-03] MEDS: busPIRone 5 MG Tablet PO (21:58)
[2020-07-03] MEDS: Atorvastatin Calcium 20 MG Tablet PO (21:59)
[2020-07-03] MEDS: Fluticasone 0.05% 1 SPRAY NASAL.SRY NASAL (22:04)
[2020-07-03 23:22] VITALS: PULSE 60
[2020-07-04 03:00] VITALS: PULSE 60
[2020-07-04 03:20] VITALS: BP 130/61; PULSE 60; RESP 16; TEMP 36.7; O2SAT 94
[2020-07-04] MEDS: Levothyroxine 75 MCG Tablet PO (05:49)
[2020-07-04] MEDS: busPIRone 5 MG Tablet PO (05:50)
--- NOTE | 2020-07-04 05:55 | RAD_ITS ---
STUDY: X-RAY CHEST REASON FOR EXAM: Female, 85 years old. Post permanent ICD/Pacemaker. INSPR/EXPR VWS. ARMS DOWN, PER M.D. ORDERS TECHNIQUE: Inspiration expiration views. COMPARISON: Comparison is made with prior study dated 06/19/2020. FINDINGS: EKG electrodes are seen. Hyperinflation. No evidence of pneumothorax. The patient is status post a left-sided dual-chamber pacemaker placement. The leads are in good position. Normal mediastinum and augusto. Normal visualized pulmonary arteries. There is atherosclerotic tortuosity of the aortic arch and descending thoracic aorta. There is demineralization of the osseous structures. Multilevel disc space narrowing and spondylosis. Prior ORIF of the right humeral fracture. There is no demonstrated abnormality of the visualized soft tissue structures of the upper abdomen. RAD/Chest 3 View IMPRESSION: Status post placement of a left-sided dual-chamber pacemaker. There is no evidence of pneumothorax. The leads are in good position. Electronically Signed: Herrera Lobato MD at 7:56 EST , Service support ,
[2020-07-04 06:59] VITALS: PULSE 60
--- NOTE | 2020-07-04 08:11 | PCM.PN.CARD ---
Subjectve: Patient seen and evaluated. Appears to be doing quite well at this time. Objective: Vital Signs Temp Pulse Resp BP Pulse Ox 98.1 F 60 16 130/61 H 94 07/04/20 03:20 07/04/20 06:59 07/04/20 03:20 07/04/20 03:20 07/04/20 03:20 Oxygen Delivery Method Room Air Weight: 206 lb 2.115 oz Body Mass Index (BMI) 34.2 Intake and Output for Last 24 Hours 07/02/20 07/03/20 07/04/20 23:59 23:59 23:59 Intake Total 640 / 640 Output Total 150 / 150 650 / 650 Balance -150 / -150 -10 / -10 General: Awake, Alert, Oriented x 3 HEENT: PERRL, EOMI, Sclera Non Icteric Neck: Supple, Good ROM, No Lymph Node Enlargement Lungs: Clear to auscultation Cardiovascular: Regular Rhythm, Normal S1, Normal S2, No Murmurs, No Rubs, No Gallops 07/03/20 10:45: INR 1.30 Rhythm: EKG: ECHO: Stress Test: Cardiac Cath: PCI: CT Surgery: Holter monitor: EPS: PPM: CXR: Chest CT Scan: Medical Necessity - Tobacco Use Smoking Status: Never smoker Assessment/Plan 1. Status post dual-chamber pacemaker placement. Chest x-ray demonstrates adequate positioning and pacer check this morning demonstrates normal functioning. Will discharge for outpatient follow-up.
--- NOTE | 2020-07-04 08:12 | PCM.DC.PACE ---
Discharge Diet: No Restrictions Discharge Activity: May Not Drive Call your doctor if your incision/area has: Continuous Slow Oozing, Sudden Increased Bleeding, Increased Pain/ Swelling, Increased Redness, Foul Smelling Discharge, Swelling at the incision site Call your doctor if you observe: Fever of 101 or Higher, Shortness of breath, Dizziness, Fainting spells, Swelling in the ankles, Chest pain, Prolonged hiccoughing, Increased palpitations (irregular heartbeat) Suture Line Care: Avoid Pulling/Pushing, Avoid Pinching/Bending Cleanse incision/area with: Do not get Incision Wet, Keep Dressing Clean & Dry Additional Dressing/Incision Instructions:: When dressing is removed, wash and dry incision. Keep covered with a light bandage if it is rubbing against your clothing. Do not cover the incision with an airtight bandage. Change the bandage daily. Do not remove steri strips. The strips will fall off on their own. Additional Instructions: Signs and Symptoms to Report to Your Doctor at Once - call your doctor's office or [facility] ([phone]) Call 911 or go to the nearest Emergency Department if you feel you need urgent care. *Infection (fever, increased redness or swelling at the incision site, drainage from the incision increased pain at the pacemaker site) *Shortness of breath *Dizziness *Fainting spells *Swelling in the ankles *Chest pain *Prolonged hiccoughing *Increased palpitaitons (irregular heartbeat) Medications: Take your pain medication as directed. Refer to your discharge instruction sheet for a list of medications you are to take. Allergies/Adverse Reactions: Allergies diclofenac [From Cataflam] Allergy (Severe, Verified 06/13/20 13:10) SOB aspirin Allergy (Verified 06/13/20 13:10) Unknown NSAIDS (Non-Steroidal Anti-Inflamma Allergy (Verified 06/13/20 13:10) Unknown flecainide Adverse Reaction (Unknown, Verified 06/13/20 13:10) Unknown sotalol Adverse Reaction (Unknown, Verified 06/13/20 13:10) Unknown Medications to take at Discharge Sertraline HCl [Zoloft] 100 mg PO DAILY 03/10/16 Amlodipine [Norvasc] 10 mg PO DAILY 12/20/17 Fluticasone 0.05% [Flonase Nasal [place]] 1 spray NASAL BID #1 nasal.sry 05/19/18 Warfarin Sodium [Coumadin] 4 mg PO MOWEFR 06/05/19 atorvastatin 20 mg tablet 20 mg PO QHS #90 tab 01/03/20 losartan 50 mg tablet 50 mg PO DAILY #90 tab 01/03/20 busPIRone [Buspar] 10 mg PO BID 04/05/20 levothyroxine 50 mcg tablet 75 mcg PO DAILY tab 06/13/20 sulfamethoxazole 800 mg-trimethoprim 160 mg tablet 1 tab PO BID #6 tab 06/19/20 Primary Care Physician: Pasha Webster MD [Primary Care Provider] - Test Results: Test results from this visit will be discussed in further detail at your follow-up appointment, if applicable. When: Pacer wound check July 10: 1:30 PM Proposed Discharge Date: 07/04/20
[2020-07-04 08:36] VITALS: BP 133/58; PULSE 62; RESP 16; TEMP 37.1; O2SAT 94
[2020-07-04] MEDS: Sertraline 100 MG Tablet PO (09:44)
[2020-07-04] MEDS: Smz/Tmp Ds Tablet 1 TABLET PO (09:44)
[2020-07-04] MEDS: Losartan Potassium 50 MG Tablet PO (09:44)
[2020-07-04] MEDS: amLODIPine 10 MG Tablet PO (09:44)
[2020-07-04 09:45] VITALS: BP 138/52
== END 2020-07-04 08:14 | disposition home or self-care (01) ==
LOC: PCU 15:11
PROVIDERS: Internal Medicine Cardiovascular Disease; Admitting Provider Internal Medicine Cardiovascular Disease; PCP Family Medicine; Referring Provider Internal Medicine Cardiovascular Disease; Visit Provider Internal Medicine Cardiovascular Disease
DX: Z45.018 Encounter for adjustment and management of other part of cardiac pacemaker (principal); I49.5 Sick sinus syndrome; I10 Essential (primary) hypertension; E03.9 Hypothyroidism, unspecified; K21.9 Gastro-esophageal reflux disease without esophagitis; I48.0 Paroxysmal atrial fibrillation; J45.909 Unspecified asthma, uncomplicated; E66.9 Obesity, unspecified; Z68.34 Body mass index [BMI] 34.0-34.9, adult; F32.9 Major depressive disorder, single episode, unspecified; K44.9 Diaphragmatic hernia without obstruction or gangrene; Z79.899 Other long term (current) drug therapy; Z79.01 Long term (current) use of anticoagulants
CPT/HCPCS: 33208; 36415; 36416; 71046; 71047; 80048; 81001; 85027; 85610; 99152; 99153; 99218; J7040; J7050; C1894; G0378; G0379

== ENCOUNTER → 2021-12-03 | Outpatient (CLI) | payer MEDICARE, OTHER, SELFPAY ==
[2021-12-03 14:09] LABS: International Normalized Ratio 2.1; Prothrombin Time (Protime)PT. 23.2 SECONDS (11.7-14.9)
== END | disposition home or self-care (01) ==
PROVIDERS: PCP Family Medicine; Visit Provider Physician Assistant
DX: I48.20 Chronic atrial fibrillation, unspecified (principal)
CPT/HCPCS: 85610